=== PATIENT | female | born 2000 | race Caucasian/White ===

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

== ENCOUNTER 2019-02-21 20:19 | Inpatient (IN) | payer OTHER ==
[~2019-02-21] VITALS: Ht 160 cm; Wt 50.8 kg
[~2019-02-21 20:19] MED LIST changes: -AZIT500T2 PO; +AZIT500T5 PO
[2019-02-21] MEDS ORDERED: NS 1,000 ML IV ONE ×2 (21:00→23:00)
[2019-02-21 21:46] LABS: BASO % 0.3 % (0.0-1.0); EOS % 0.2 % (0.0-3.0); HEMATOCRIT 47.5 % (36.0-47.0); HEMOGLOBIN 14.8 g/dl (12.0-15.5); LYMPH # 1.1 10^3/uL (1.5-5.0); LYMPH % 8.5 % (24.0-44.0); MEAN CORPUSCULAR HEMOGLOBIN 25.6 pg (27.0-33.0); MEAN CORPUSCULAR HGB CONC 31.2 g/dl (32.0-36.5); MEAN CORPUSCULAR VOLUME 82.2 fl (80.0-96.0); MONO # 0.9 10^3/uL (0.0-0.8); MONO % 7.4 % (0.0-5.0); NEUTROPHILS # 10.4 10^3/uL (1.5-8.5); NEUTROPHILS % 83.2 % (36.0-66.0); PLATELET COUNT, AUTOMATED 424 10^3/uL (150-450); RED BLOOD COUNT 5.78 10^6/uL (4.00-5.40); WHITE BLOOD COUNT 12.5 10^3/uL (4.0-10.0)
[2019-02-21 22:08] LABS: VENOUS HCO3 6.9 MEQ/L (23.0-27.0); VENOUS O2 SATURATION 97.1 % (60.0-80.0); VENOUS PARTIAL PRESSURE CO2 18.7 mmHg (38.0-50.0); VENOUS PARTIAL PRESSURE O2 102.6 mmHg (30.0-50.0); VENOUS PH 7.187 UNITS (7.330-7.430); VENOUS STANDARD HCO3 10.9 MEQ/L; VENOUS TOTAL CO2 7.5 MEQ/L (24.0-28.0)
[2019-02-21 22:13] LABS: HCG, SERUM QUALITATIVE NEGATIVE (NEGATIVE)
[2019-02-21 22:25] LABS: ACETONE/KETONE > 46.00 MG/DL (<2.81); ALT/SGPT 15 U/L (12-78); BILIRUBIN,DIRECT < 0.1 MG/DL (0.0-0.2); BILIRUBIN,TOTAL 0.4 MG/DL (0.2-1.0); BLOOD UREA NITROGEN 12 MG/DL (7-18); CALCIUM LEVEL 8.9 MG/DL (8.5-10.1); CARBON DIOXIDE LEVEL 11 MEQ/L (21-32); CHLORIDE LEVEL 99 MEQ/L (98-107); CK-MB VALUE MASS < 1.0 NG/ML (<3.6); CPK CREATINE PHOSPHOKINASE 34 U/L (26-192); CREATININE FOR GFR 0.82 MG/DL (0.55-1.30); ETHYL ALCOHOL (ETHANOL) < 0.003 % (0.000-0.010); GLUCOSE, FASTING 485 MG/DL (70-100); LIPASE 53 U/L (73-393); MB/CK RELATIVE INDEX 2.94 (< OR =4); OSMOLALITY SERUM 309 MOSM/KG (275-295); SODIUM LEVEL 132 MEQ/L (136-145); TOTAL PROTEIN 7.4 GM/DL (6.4-8.2); TROPONIN I < 0.02 NG/ML (< 0.10)
[2019-02-21 22:31] LABS: AMPHETAMINES LEVEL URINE NEGATIVE (NEGATIVE); BARBITURATES URINE NEGATIVE (NEGATIVE); BENZODIAZEPINES URINE NEGATIVE (NEGATIVE); CANNABINOIDS URINE NEGATIVE (NEGATIVE); COCAINE METABOLITE URINE NEGATIVE (NEGATIVE); METHADONE URINE NEGATIVE (NEGATIVE); OPIATES URINE NEGATIVE (NEGATIVE); PHENCYCLIDINE URINE NEGATIVE (NEGATIVE)
[2019-02-21] MEDS ORDERED: cefTRIAXone SOD 1 GM in D5W MINI-BAG PLUS 50 ML IV ONE (23:00)
[2019-02-21] MEDS ORDERED: HumuLIN R (REGULAR) INSULIN (NovoLIN R) **100U/ML** PER UNIT IV ONE (23:00)
[2019-02-21] MEDS ORDERED: INSULIN HUMAN REGULAR 100 UNITS in NS 99 ML IV SCH (23:30)
[2019-02-21] MEDS ORDERED: L-NO1TBD4 PO (23:47)
--- NOTE | 2019-02-22 01:09 | ECGEPIP ---
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
[2019-02-22 01:35] LABS: VENOUS BASE EXCESS -15.7 (-2.0-2.0); VENOUS O2 SATURATION 60.9 % (60.0-80.0); VENOUS PARTIAL PRESSURE CO2 29.5 mmHg (38.0-50.0); VENOUS PARTIAL PRESSURE O2 32.4 mmHg (30.0-50.0); VENOUS STANDARD HCO3 12.2 MEQ/L; VENOUS TOTAL CO2 11.9 MEQ/L (24.0-28.0)
[2019-02-22] MEDS ORDERED: GLUCAGON FOR INJ 1 MG VIAL (J1610) SC PRN ×2 (02:00→16:15)
[2019-02-22] MEDS ORDERED: POTASSIUM CHLORIDE INJ 40 MEQ in NS 0.45% 1,000 ML IV SCH (02:00)
[2019-02-22] MEDS ORDERED: GLUCOSE 4 GM CHEW TABLET PO PRN ×2 (02:00→16:15)
[2019-02-22] MEDS ORDERED: DEXTROSE 50% 50 ML SYRINGE IV PRN ×2 (02:00→16:15)
[2019-02-22 02:03] LABS: OSMOLALITY SERUM 303 MOSM/KG (275-295)
[2019-02-22 02:04] LABS: BLOOD UREA NITROGEN 9 MG/DL (7-18); CALCIUM LEVEL 8.1 MG/DL (8.5-10.1); CARBON DIOXIDE LEVEL 15 MEQ/L (21-32); CHLORIDE LEVEL 109 MEQ/L (98-107); CREATININE FOR GFR 0.85 MG/DL (0.55-1.30); GLUCOSE, FASTING 276 MG/DL (70-100); POTASSIUM SERUM 3.2 MEQ/L (3.5-5.1); SODIUM LEVEL 140 MEQ/L (136-145)
[2019-02-22] MEDS: D5W/0.45% SODIUM CHLORIDE 1,000 ML IV SCH ×4 (04:13→13:58)
[2019-02-22 06:39] LABS: BASO % 0.3 % (0.0-1.0); EOS % 0.3 % (0.0-3.0); HEMATOCRIT 40.6 % (36.0-47.0); HEMOGLOBIN 12.9 g/dl (12.0-15.5); LYMPH # 1.2 10^3/uL (1.5-5.0); LYMPH % 10.2 % (24.0-44.0); MEAN CORPUSCULAR HEMOGLOBIN 25.9 pg (27.0-33.0); MEAN CORPUSCULAR HGB CONC 31.8 g/dl (32.0-36.5); MEAN CORPUSCULAR VOLUME 81.5 fl (80.0-96.0); MONO # 1.7 10^3/uL (0.0-0.8); MONO % 14.7 % (0.0-5.0); NEUTROPHILS # 8.6 10^3/uL (1.5-8.5); NEUTROPHILS % 73.9 % (36.0-66.0); PLATELET COUNT, AUTOMATED 373 10^3/uL (150-450); RED BLOOD COUNT 4.98 10^6/uL (4.00-5.40); WHITE BLOOD COUNT 11.6 10^3/uL (4.0-10.0)
[2019-02-22 06:39] LABS: VENOUS BASE EXCESS -10.2 (-2.0-2.0); VENOUS HCO3 15.9 MEQ/L (23.0-27.0); VENOUS O2 SATURATION 82.4 % (60.0-80.0); VENOUS PARTIAL PRESSURE CO2 35.7 mmHg (38.0-50.0); VENOUS PARTIAL PRESSURE O2 46.8 mmHg (30.0-50.0); VENOUS PH 7.266 UNITS (7.330-7.430); VENOUS STANDARD HCO3 16.2 MEQ/L
[2019-02-22 06:58] LABS: OSMOLALITY SERUM 289 MOSM/KG (275-295)
[2019-02-22 07:00] LABS: BLOOD UREA NITROGEN 7 MG/DL (7-18); CALCIUM LEVEL 8.1 MG/DL (8.5-10.1); CARBON DIOXIDE LEVEL 17 MEQ/L (21-32); CHLORIDE LEVEL 108 MEQ/L (98-107); CREATININE FOR GFR 0.67 MG/DL (0.55-1.30); GLUCOSE, FASTING 204 MG/DL (70-100); MAGNESIUM LEVEL 1.5 MG/DL (1.8-2.4); POTASSIUM SERUM 3.1 MEQ/L (3.5-5.1); SODIUM LEVEL 138 MEQ/L (136-145)
--- NOTE | 2019-02-22 07:18 | HPE ---
DATE OF ADMISSION: 02/21/2019 CHIEF COMPLAINT: Excessive sleeping, frequent urination, elevated blood sugar. This is a 19-year-old female with known insulin dependent diabetes who was at home. Her mother noticed she was having excessive sleeping, frequent urination. Her blood sugar was elevated. Per the mother she has had several admissions for diabetic ketoacidosis (DKA). She recognized the symptoms and brought the patient to the emergency room. Upon arrival, her temperature was 97.5, pulse was 107, blood pressure was 124/88, respirations were 16, oxygen saturation was 99% on room air. LABORATORY STUDIES: Fingerstick blood sugar was 369 at 2028 hours, 492 at 2141 hours. Sodium was 132, potassium 4.0, chloride 99, CO2 was 11, anion gap was elevated at 22, BUN was 12, creatinine was 0.82, blood sugar was 485 venous, osmolality was 309. White count was slightly elevated at 12.5, hemoglobin and hematocrit were 14.8 and 47.5, platelets were 422. Urine for toxicology was negative. The hydroxybutyrate was greater than 46. Venous blood gas (VBG) was done. Bicarb was 10.9, pH was 7.187. Urine was cloudy, 3+ glucose, 3+ protein, 1+ blood, 2+ ketones, white cells were too numerous to count. Chest x-ray was done. Per the ER physician there was no acute disease. IV fluids were started of normal saline. She was given 5 units of regular insulin and started on a drip. Assessment was done and the patient will be admitted for DKA, IV fluids, potassium replacement, insulin drip, to the ICU unit to the service of Dr. Cedeno. The patient was easy to arouse, oriented to person and place. ALLERGIES: Pistachios. PRIMARY CARE PROVIDER: Dr. Eli Escobar She lives with her mother. She does not drink alcohol. She occasionally smokes marijuana. Denies any recent travel or sick contacts. PAST MEDICAL HISTORY: Insulin-dependent diabetes type 1. Hypertension. Chronic kidney disease. Depression. History of anemia. PAST SURGICAL HISTORY: Appendectomy. FAMILY HISTORY: The patient states her mother and father have no medical problems. Prior records indicated heart disease and diabetes. HOME MEDICATIONS: - lisinopril 10 mg by mouth daily - Tresiba 100 units/1 mL insulin pen 30 units subcu daily - control one tablet daily - Humalog subcu before meals per sliding scale REVIEW OF SYSTEMS: HEENT: No complaint of headache. No blurred or double vision. She is sedate. She has had chills, no fever. No tinnitus. No hoarseness. No difficulty swallowing. No lightheadedness, no vertigo. BREASTS: No masses. CARDIOVASCULAR: No complaints of chest pain, shortness of breath, palpitations or edema. RESPIRATORY: No chronic cough. No sputum production. No hemoptysis. No orthopnea. No wheeze. GASTROINTESTINAL (GI): She has been nauseated. States she has not eaten for two days. No diarrhea. No hematochezia. No melena. No complaints of abdominal pain. GENITOURINARY (): Has had frequency. No hematuria. MUSCULOSKELETAL: No joint redness or swelling. ENDOCRINE: Insulin dependent diabetes type 1 and DKA. HEMATOLOGIC: No history of anemia. NEUROLOGIC: No loss of seizures. PSYCHOLOGIC: History of depression. No current suicidal ideation. PHYSICAL EXAMINATION: 19-year-old cooperative female. Height 63 inches, weight 52.27 kg, body mass index (BMI) 20.4, blood pressure 108/69, pulse 108, respirations 16, oxygen saturation 98% on room air. The patient is sleeping, arouses easily, oriented to person, place and time. Pupils equal and reactive to light. Extraocular muscles intact. Cornea and sclerae are clear. Conjunctivae are normal. No facial asymmetry. Pharynx, tongue and gums are pink and moist. Tongue is midline. Neck is supple without lymphadenopathy. No thyromegaly. No goiter. Chest clear to auscultation without wheeze or retraction. Heart is regular. Abdomen benign. Bowel sounds are positive. /rectal not done. Extremities full range of motion. No cyanosis, clubbing or edema. A small area on the left forearm tattoo, slightly reddened, no drainage. Peripheral pulses are equal and palpable bilaterally. Skin is warm and dry. IMPRESSION/PLAN: 1. Diabetic ketoacidosis (DKA). Admit to the ICU. Insulin drip, fingerstick blood sugars every hour. BMP every 4 hours. Phosphorous and VBG every 4 hours. IV fluids 250 mL an hour. Nothing by mouth except for medications. Dietary consult for nutrition. Half normal saline with KCL 40 mEq at 250 mL/hour. Hourly blood sugars. 2. Leukocytosis possibly secondary to urinary tract infection (UTI). Urine culture and sensitivity sent. Rocephin 1 gram started. 3. Small area infected tattoo, no redness or drainage. Monitor. IV antibiotics have been started. 4. Gastrointestinal (GI) prophylaxis. Will start Protonix. 5. Deep vein thrombosis (DVT) prophylaxis with Lovenox.
--- NOTE | 2019-02-22 08:29 | REP ---
Portable chest x-ray: Single view. History: Diabetic ketoacidosis. Comparison chest x-ray: December 15, 2018. Findings: EKG monitoring electrodes overlie the chest. The lungs are well inflated and clear. Pleural angles are sharp. Heart size is normal. Nipple jewelry is noted incidentally. Pulmonary vasculature is not increased. Impression: No acute disease. Electronically Signed by Gene Shabazz MD 02/22/2019 08:21 A
[2019-02-22] MEDS ORDERED: INSULIN IV RATE CHANGE DOCUMENTATION ML/HR XX SCH (08:30)
[2019-02-22 08:50] LABS: VENOUS BASE EXCESS -15.2 (-2.0-2.0); VENOUS HCO3 11.1 MEQ/L (23.0-27.0); VENOUS O2 SATURATION 76.1 % (60.0-80.0); VENOUS PARTIAL PRESSURE CO2 28.5 mmHg (38.0-50.0); VENOUS PARTIAL PRESSURE O2 42.6 mmHg (30.0-50.0); VENOUS PH 7.208 UNITS (7.330-7.430); VENOUS STANDARD HCO3 12.8 MEQ/L
[2019-02-22] MEDS ORDERED: POTASSIUM CHLORIDE 10 MEQ SR TABLET PO ONE ×2 (09:00→10:30)
[2019-02-22] MEDS: LEVEMIR (INSULIN DETEMIR) 1 UNITS/0.01ML SC SCH (09:10)
[2019-02-22] MEDS: PANTOPRAZOLE 40MG INJ (PROTONIX) (C9113) IV SCH (09:11)
[2019-02-22 09:18] LABS: BLOOD UREA NITROGEN 7 MG/DL (7-18); CALCIUM LEVEL 8.8 MG/DL (8.5-10.1); CARBON DIOXIDE LEVEL 13 MEQ/L (21-32); CHLORIDE LEVEL 104 MEQ/L (98-107); GLUCOSE, FASTING 362 MG/DL (70-100); PHOSPHORUS LEVEL 2.1 MG/DL (2.5-4.9); POTASSIUM SERUM 3.2 MEQ/L (3.5-5.1); SODIUM LEVEL 135 MEQ/L (136-145)
[2019-02-22] MEDS ORDERED: INSULIN HUMAN REGULAR 100 UNITS in NS 99 ML IV SCH ×5 (09:35)
[2019-02-22] MEDS: INSULIN HUMAN REGULAR 100 UNITS in NS 99 ML IV SCH ×2 (10:08→16:40)
[2019-02-22] MEDS: ENOXAPARIN 40 MG/0.4 ML SYRINGE (J1650) SC SCH (10:10)
[2019-02-22] MEDS ORDERED: MAG SULF 1GM/100ML (MAG RUN) 1 GM in IV 1 EA IV ONE (10:30)
[2019-02-22 11:46] LABS: OSMOLALITY SERUM 297 MOSM/KG (275-295)
[2019-02-22 12:44] LABS: VENOUS BASE EXCESS -11.3 (-2.0-2.0); VENOUS HCO3 13.1 MEQ/L (23.0-27.0); VENOUS PARTIAL PRESSURE O2 105.2 mmHg (30.0-50.0); VENOUS PH 7.319 UNITS (7.330-7.430); VENOUS STANDARD HCO3 15.7 MEQ/L; VENOUS TOTAL CO2 13.9 MEQ/L (24.0-28.0)
--- NOTE | 2019-02-22 12:44 | IPNPDOC ---
Text Note Date of Service The patient was seen on 02/22/19. NOTE Subjective: -No pain at this time but just feels poorly Interim events: -Declined IV K because it thorpe -Overnight had insulin gtt stopped with bridging with SC insulin and had 2- 3hours of no coverage, so gap re-opened and therefore now back on insulin gtt and given long acting insulin Objective: General: sleeping in a dark room, wakes on voice, AOx3, conversant HEENT: NCAT, PERRLA, EOMI, MMM, anicteric, no injection Neck: no JVD, adenopathy or thyromegaly Pulm: CTAB Cardiac: RRR, no mrg Abd: Hyperactive sounds, soft, NTND Ext: WWP, no LE edema Neuro: Cranial nerves 2-12 intact, full range of motion in all 4 extremities Psych: AOx3, appropriate affect Assessment: 19 yo woman who is admitted for DKA with ongoing UTI/pyelonephritis. 1. Diabetic ketoacidosis (DKA). -continue insulin gtt at 0.1u/kg/hr until gap closes -s/p 30u levemir this AM, and to continue daily -Q1H FSBG -continue D51/2NS at 125cc/hr at this time -Q4H BMPs with PO K repletion --> given 80 this AM (60 once, 20 once) -As gap closes and FSBG <200 will start FSBG AC/HS and SSI -NPO until gap closes and FSBG <200, then can start consistent carb diet 2. UTI: Flank pain c/f pyelonephritis with Leukocytosis, +UA -follow up urine culture -continue empiric ceftriaxone at this time C/f Small area infected tattoo: did not see any redness or drainage. -Monitor. -on IV ceftriaxone already 3. Gastrointestinal (GI) prophylaxis. continue protonix. 5. Deep vein thrombosis (DVT) prophylaxis: continue Lovenox. VS,Fishbone, I+O VS, Fishbone, I+O Laboratory Tests 02/21/19 21:36 02/22/19 01:22 02/22/19 06:14 02/22/19 08:42 Vital Signs Date Time Temp Pulse Resp B/P (MAP) Pulse Ox O2 Delivery O2 Flow Rate FiO2 02/22/19 09:30 104 16 111/68 (82) 99 Room Air 02/22/19 04:15 97.7 I&O- Last 24 Hours up to 6 AM 02/22/19 06:00 Intake Total 2297 ml Balance 2297 ml KATIUSKA PHILLIP MD Feb 22, 2019 12:44
[2019-02-22 13:27] LABS: BLOOD UREA NITROGEN 5 MG/DL (7-18); CARBON DIOXIDE LEVEL 15 MEQ/L (21-32); CHLORIDE LEVEL 108 MEQ/L (98-107); CREATININE FOR GFR 0.86 MG/DL (0.55-1.30); GLUCOSE, FASTING 374 MG/DL (70-100); PHOSPHORUS LEVEL 0.8 MG/DL (2.5-4.9); POTASSIUM SERUM 2.9 MEQ/L (3.5-5.1); SODIUM LEVEL 136 MEQ/L (136-145)
[2019-02-22 15:30] VITALS: BP 125/73
[2019-02-22] MEDS ORDERED: NEUTRA-PHOS 1.5 GM PACKET PO ONE (16:00)
[2019-02-22 16:24] LABS: VENOUS BASE EXCESS -16.4 (-2.0-2.0); VENOUS HCO3 9.3 MEQ/L (23.0-27.0); VENOUS O2 SATURATION 98.6 % (60.0-80.0); VENOUS PARTIAL PRESSURE CO2 22.2 mmHg (38.0-50.0); VENOUS PARTIAL PRESSURE O2 140.1 mmHg (30.0-50.0); VENOUS PH 7.242 UNITS (7.330-7.430); VENOUS STANDARD HCO3 11.8 MEQ/L
[2019-02-22 17:00] VITALS: BP 114/72
[2019-02-22] MEDS: HumaLOG INSULIN (NovoLOG) PER UNIT SC SCH (17:27)
[2019-02-22 18:09] LABS: BLOOD UREA NITROGEN 3 MG/DL (7-18); CALCIUM LEVEL 8.1 MG/DL (8.5-10.1); CARBON DIOXIDE LEVEL 20 MEQ/L (21-32); CHLORIDE LEVEL 107 MEQ/L (98-107); CREATININE FOR GFR 0.69 MG/DL (0.55-1.30); GLUCOSE, FASTING 167 MG/DL (70-100); PHOSPHORUS LEVEL 1.5 MG/DL (2.5-4.9); POTASSIUM SERUM 3.1 MEQ/L (3.5-5.1); SODIUM LEVEL 138 MEQ/L (136-145)
[2019-02-22 20:00] VITALS: BP 114/69
[2019-02-22] MEDS ORDERED: HumaLOG INSULIN (NovoLOG) PER UNIT SC SCH (21:00)
[2019-02-22] MEDS ORDERED: cefTRIAXone SOD 1 GM in D5W MINI-BAG PLUS 50 ML IV SCH (21:00)
[2019-02-23] VITALS: BP 118/72
[2019-02-23 04:00] VITALS: BP 112/71
[2019-02-23 05:39] LABS: BASO % 0.3 % (0.0-1.0); EOS % 0.3 % (0.0-3.0); HEMATOCRIT 39.5 % (36.0-47.0); HEMOGLOBIN 12.6 g/dl (12.0-15.5); LYMPH % 20.9 % (24.0-44.0); MEAN CORPUSCULAR HEMOGLOBIN 25.5 pg (27.0-33.0); MEAN CORPUSCULAR HGB CONC 31.9 g/dl (32.0-36.5); MONO # 1.5 10^3/uL (0.0-0.8); MONO % 15.3 % (0.0-5.0); NEUTROPHILS # 6.1 10^3/uL (1.5-8.5); NEUTROPHILS % 62.9 % (36.0-66.0); PLATELET COUNT, AUTOMATED 326 10^3/uL (150-450); RED BLOOD COUNT 4.94 10^6/uL (4.00-5.40); WHITE BLOOD COUNT 9.7 10^3/uL (4.0-10.0)
[2019-02-23 06:04] LABS: OSMOLALITY SERUM 296 MOSM/KG (275-295)
[2019-02-23 06:11] LABS: BLOOD UREA NITROGEN 6 MG/DL (7-18); CALCIUM LEVEL 8.3 MG/DL (8.5-10.1); CARBON DIOXIDE LEVEL 22 MEQ/L (21-32); CHLORIDE LEVEL 106 MEQ/L (98-107); CREATININE FOR GFR 0.56 MG/DL (0.55-1.30); GLUCOSE, FASTING 356 MG/DL (70-100); PHOSPHORUS LEVEL 1.7 MG/DL (2.5-4.9); POTASSIUM SERUM 3.1 MEQ/L (3.5-5.1); SODIUM LEVEL 137 MEQ/L (136-145)
[2019-02-23] MEDS ORDERED: POTASSIUM CHLORIDE 10 MEQ SR TABLET PO ONE ×2 (06:15→09:30)
[2019-02-23] MEDS: NEUTRA-PHOS 1.5 GM PACKET PO SCH ×2 (06:27→09:00)
[2019-02-23 08:00] VITALS: BP 109/72
[2019-02-23] MEDS: PANTOPRAZOLE 40MG INJ (PROTONIX) (C9113) IV SCH (08:04)
[2019-02-23] MEDS: ENOXAPARIN 40 MG/0.4 ML SYRINGE (J1650) SC SCH (08:04)
[2019-02-23] MEDS: LEVEMIR (INSULIN DETEMIR) 1 UNITS/0.01ML SC SCH (08:04)
[2019-02-23] MEDS: HumaLOG INSULIN (NovoLOG) PER UNIT SC SCH ×2 (08:04→11:22)
[2019-02-23] MEDS ORDERED: NEUTPW PO (09:34)
[2019-02-23] MEDS ORDERED: CEFD300CAP PO (09:34)
[2019-02-23] MEDS ORDERED: POTA1TAB14 PO (09:34)
[2019-02-23 12:13] LABS: BLOOD UREA NITROGEN 6 MG/DL (7-18); CALCIUM LEVEL 8.8 MG/DL (8.5-10.1); CARBON DIOXIDE LEVEL 25 MEQ/L (21-32); CHLORIDE LEVEL 105 MEQ/L (98-107); GLUCOSE, FASTING 350 MG/DL (70-100); POTASSIUM SERUM 4.3 MEQ/L (3.5-5.1); SODIUM LEVEL 139 MEQ/L (136-145)
--- NOTE | 2019-02-23 12:38 | DS.PDOC ---
Discharge Summary General Date of Admission Feb 21, 2019 at 23:10 Date of Discharge 02/23/2019 Discharge Summary PROCEDURES PERFORMED DURING STAY: [None]. ADMITTING DIAGNOSES / DISCHARGE DIAGNOSES: DKA [id number] UTI - likely 2/2 gram negative rods HTN GI prophylaxis DVT Prophylaxis COMPLICATIONS/CHIEF COMPLAINT: Elevated blood sugars and frequent urination HISTORY OF PRESENT ILLNESS / HOSPITAL COURSE: Patient is a 19-year-old female with a past medical history of insulin-dependent diabetes mellitus type 2 who presented to the emergency room with frequent urination and elevated blood sugars in the emergency room, patient was found to have DKA and was admitted to hospitalist service for further evaluation and treatment. Patient was also found to have a urinalysis that was consistent with a urinary tract infection. Patient was admitted intensive care unit and was started on insulin drip. She was eventually bridged to long acting basal coverage with Levemir. Patient urine culture showed greater than 100,000 gram-negative rods and patient was continued with cefdinir to provide equal and coverage to ceftriaxone that she has been improving on. . Currently, patient's anion gap has closed. Her bicarbonate has normalized and her glucose levels have become well-controlled. She's been advised to follow-up with her primary care provider and her time analysis clerk within the next 7 days. DISCHARGE MEDICATIONS: Please see below. ALLERGIES: Please see below. PHYSICAL EXAMINATION ON DISCHARGE: Vitals (See below) General: Lying in bed, no acute distress, comfortable, AAOx3 HEENT: NC, AT CVS: RRR, +S1S2 Lungs: Fair air entry b/l, no appreciable wheezing, rhonchi or rales Abdomen: Soft, ND, NT Extremities: - Edema, - Calf tenderness LABORATORY DATA: Please see below. IMAGING: CXR 02/21: No acute disease. ACTIVITY: [As tolerated]. DIET: Consistent carbohydrate DISCHARGE PLAN: Follow-up with primary care provider and time analysis clerk within 7 days Remain compliant with treatment plan and medications Return to the ER if you experience any problems DISPOSITION: Home DISCHARGE CONDITION: [Stable]. TIME SPENT ON DISCHARGE: 35 minutes Vital Signs/I&Os Vital Signs Date Time Temp Pulse Resp B/P (MAP) Pulse Ox O2 Delivery O2 Flow Rate FiO2 02/23/19 04:00 98.8 103 14 112/71 (85) 99 Room Air I&O- Last 24 Hours up to 6 AM 02/23/19 06:00 Intake Total 3265.9 ml Output Total 800 ml Balance 2465.9 ml Laboratory Data Labs 24H Laboratory Tests 2 02/22/19 12:35: Blood Gas Bicarbonate Standard 15.7, Venous Blood pH 7.319L, Venous Blood Partial Pressure CO2 26.0L, Venous Blood Partial Pressure O2 105.2H, Venous Blood Total Carbon Dioxide 13.9L, Venous Blood HCO3 13.1L, Venous Blood Oxygen Saturation 98.0H, Venous Blood Base Excess -11.3L, Anion Gap 13, Calcium Level 8.0L, Phosphorus Level 0.8#L 02/22/19 13:11: Bedside Glucose (Misc Panel) 310H 02/22/19 13:55: Bedside Glucose (Misc Panel) 241H 02/22/19 15:14: Bedside Glucose (Misc Panel) 208H 02/22/19 16:01: Bedside Glucose (Misc Panel) 157H 02/22/19 16:17: Blood Gas Bicarbonate Standard 11.8, Venous Blood pH 7.242L, Venous Blood Partial Pressure CO2 22.2L, Venous Blood Partial Pressure O2 140.1H, Venous Blood Total Carbon Dioxide 10.0L, Venous Blood HCO3 9.3L, Venous Blood Oxygen Saturation 98.6H, Venous Blood Base Excess -16.4L, Osmolality 340H 02/22/19 17:03: Bedside Glucose (Misc Panel) 150H 02/22/19 17:37: Anion Gap 11, Calcium Level 8.1L, Phosphorus Level 1.5#L 02/22/19 20:16: Bedside Glucose (Misc Panel) 407H 02/23/19 05:07: Immature Granulocyte % (Auto) 0.3, Neutrophils (%) (Auto) 62.9, Lymphocytes (%) (Auto) 20.9L, Monocytes (%) (Auto) 15.3H, Eosinophils (%) (Auto) 0.3, Basophils (%) (Auto) 0.3, Neutrophils # (Auto) 6.1, Lymphocytes # (Auto) 2.0, Monocytes # (Auto) 1.5H, Eosinophils # (Auto) 0.0, Basophils # (Auto) 0.0, Nucleated Red Blood Cells % (auto) 0.0, Anion Gap 9, Osmolality 296H, Calcium Level 8.3L, Phosphorus Level 1.7L, Magnesium Level 2.0 02/23/19 11:17: Bedside Glucose (Misc Panel) 371H 02/23/19 11:27: Anion Gap 9, Calcium Level 8.8 CBC/BMP Laboratory Tests 02/22/19 12:35 02/22/19 17:37 02/23/19 05:07 02/23/19 11:27 FSBS Laboratory Tests Test 02/22/19 13:11 02/22/19 13:55 02/22/19 15:14 02/22/19 16:01 Range/Units Bedside Glucose (Misc Panel) 310 241 208 157 70-105 MG/DL Test 02/22/19 17:03 02/22/19 20:16 02/23/19 11:17 Range/Units Bedside Glucose (Misc Panel) 150 407 371 70-105 MG/DL Microbiology Microbiology 02/21/19 Urine Culture, Received Pending 02/21/19 Blood Culture - Preliminary, Resulted No growth after 24 hours . All specim... 02/21/19 Blood Culture - Preliminary, Resulted No growth after 24 hours . All specim... Discharge Medications Scheduled Cefdinir (Cefdinir) 300 Mg Capsule, 300 MG PO BID Insulin Degludec (Tresiba Flextouch U-100) 100 Unit/1 Ml Insuln.pen, 30 UNIT SC DAILY, (Reported) Insulin Human Lispro (Humalog) 1 Units/0.01 Ml Inj, 1 DOSE SC AC, (Reported) TAKES ONE UNIT PER 8 GRAMS OF CARBS TO BE CONSUMED PLUS SLIDING SCALE Lisinopril (Lisinopril) 10 Mg Tab, 10 MG PO DAILY, (Reported) Potassium Chloride (Potassium Chloride) 20 Meq Tablet.er, 1 TAB PO DAILY Potassium Phos/Sodium Phos (Phos-Nak Packet) 1 Each Powd.pack, 1 PKT PO BID l-Norgest/E.estradiol-E.estrad (Simpesse 0.15-0.03-0.01 mg Tab) 1 Each Tbdspk.3m o, 1 TAB PO DAILY, (Reported) 1500 Scheduled PRN Glucagon,Human Recombinant (Glucagon Emergency Kit) 1 Mg Kit, 1 MG IM ASDIRECTED PRN for LOW BLOOD SUGAR, (Reported) Allergies Coded Allergies: Pistachio (Verified Allergy, Unknown, 12/02/18) HOSSEIN KUNZ MD Feb 23, 2019 12:38
== END 2019-02-23 14:53 | disposition home or self-care (01) | DRG 420 ==
LOC: M ED 20:19 → M ED INP 23:10 → M ICU 02-22 15:33 → M MS4PR 02-23 06:35
PROVIDERS: ADMIT Internal Medicine; ATTEND Internal Medicine
DX: E10.10 Type 1 diabetes mellitus with ketoacidosis without coma (principal); I12.9 Hypertensive chronic kidney disease with stage 1 through stage 4 chronic kidney disease, or unspecified chronic kidney disease; E10.22 Type 1 diabetes mellitus with diabetic chronic kidney disease; N18.9 Chronic kidney disease, unspecified; F32.9 Major depressive disorder, single episode, unspecified; Z79.4 Long term (current) use of insulin; Z79.899 Other long term (current) drug therapy; N39.0 Urinary tract infection, site not specified; Z91.018 Allergy to other foods

== ENCOUNTER 2019-04-15 22:18 | Inpatient (IN) | payer OTHER ==
[~2019-04-15] VITALS: Ht 160 cm; Wt 52.3 kg
[~2019-04-15 22:18] MED LIST changes: +CEFD300CAP PO; +L-NO1TBD4 PO; +NEUTPW PO; +POTA1TAB14 PO
[2019-04-15 23:24] LABS: BASO # 0.1 10^3/uL (0.0-0.2); BASO % 0.7 % (0.0-1.0); EOS # 0.1 10^3/uL (0.0-0.5); EOS % 0.9 % (0.0-3.0); HEMOGLOBIN 14.1 g/dl (12.0-15.5); LYMPH # 2.6 10^3/uL (1.5-5.0); LYMPH % 29.6 % (24.0-44.0); MEAN CORPUSCULAR HEMOGLOBIN 26.5 pg (27.0-33.0); MEAN CORPUSCULAR HGB CONC 31.3 g/dl (32.0-36.5); MEAN CORPUSCULAR VOLUME 84.6 fl (80.0-96.0); MONO # 0.7 10^3/uL (0.0-0.8); NEUTROPHILS # 5.3 10^3/uL (1.5-8.5); NEUTROPHILS % 60.5 % (36.0-66.0); PLATELET COUNT, AUTOMATED 330 10^3/uL (150-450); RED BLOOD COUNT 5.32 10^6/uL (4.00-5.40); WHITE BLOOD COUNT 8.8 10^3/uL (4.0-10.0)
[2019-04-15 23:42] LABS: VENOUS BASE EXCESS -12.1 (-2.0-2.0); VENOUS HCO3 14.3 MEQ/L (23.0-27.0); VENOUS O2 SATURATION 86.8 % (60.0-80.0); VENOUS PARTIAL PRESSURE CO2 34.2 mmHg (38.0-50.0); VENOUS PARTIAL PRESSURE O2 61.4 mmHg (30.0-50.0); VENOUS PH 7.238 UNITS (7.330-7.430); VENOUS TOTAL CO2 15.3 MEQ/L (24.0-28.0)
[2019-04-15 23:45] LABS: BLOOD UREA NITROGEN 8 MG/DL (7-18); CALCIUM LEVEL 9.1 MG/DL (8.5-10.1); CARBON DIOXIDE LEVEL 15 MEQ/L (21-32); CHLORIDE LEVEL 85 MEQ/L (98-107); CREATININE FOR GFR 1.18 MG/DL (0.55-1.30); GLUCOSE, FASTING 913 MG/DL (70-100); POTASSIUM SERUM 3.7 MEQ/L (3.5-5.1); SODIUM LEVEL 123 MEQ/L (136-145)
[2019-04-15] MEDS ORDERED: NS 1,000 ML IV ONE (23:45)
[2019-04-15 23:47] LABS: HCG, SERUM QUALITATIVE NEGATIVE (NEGATIVE)
[2019-04-15 23:58] LABS: ACETONE/KETONE 9.77 MG/DL (<2.81)
[2019-04-16] VITALS (7 sets, daily range): BP systolic 100–121; BP diastolic 56–89
[2019-04-16 00:27] LABS: OSMOLALITY SERUM 317 MOSM/KG (275-295)
[2019-04-16] MEDS ORDERED: INSULIN HUMAN REGULAR 100 UNITS in NS 99 ML IV SCH ×2 (00:45→01:15)
[2019-04-16] MEDS ORDERED: INSULIN IV RATE CHANGE DOCUMENTATION ML/HR XX SCH (00:45)
[2019-04-16] MEDS ORDERED: POTASSIUM CHLORIDE 10 MEQ SR TABLET PO ONE (00:45)
[2019-04-16] MEDS: HumuLIN R (REGULAR) INSULIN (NovoLIN R) **100U/ML** PER UNIT IV ONE ×2 (00:52→01:28)
[2019-04-16] MEDS ORDERED: NS 500 ML in IV 1 EA IV ONE (01:00)
--- NOTE | 2019-04-16 01:28 | HPEPDOC ---
[facility] Medical History & Physical Date of Admission Apr 16, 2019 Date of Service: Apr 16, 2019 Other Provider Eli Henley M.D. Attending Physician: JEAN HENNESSY MD History and Physical TIME OF SERVICE: 110AM CHIEF COMPLAINT: High sugar HISTORY OF PRESENT ILLNESS: This is a 19-year-old female who presents with complaints of having high sugars. She has been measuring her sugars over the last few days and has not been able to get them down and thinks she has ketones. Associated symptoms include feeling thirsty, urinating a lot, abdominal pain, feeling weak and tired. She denies having nausea, vomiting, diarrhea, chills, runny nose, cough, congestion, cuts on her skin or having a change in the color or smell of her urine. She had a fever on Friday and one of her friends had an upper respiratory tract infection. She admits to missing doses of insulin on Friday and last took insulin at 5 PM prior to coming to the ER on . REVIEW OF SYSTEMS: 12 point review of systems negative except as listed in HPI PAST MEDICAL/ SURGICAL HISTORY: Type 1 diabetes with history of DKA. Chronic hypertension. CKD of unclear stage Depression. History of anemia. Status post appendectomy SOCIAL HISTORY: She does not smoke. She does not drink. She is marijuana occasionally FAMILY HISTORY: CAD Diabetes ALLERGIES: Please see below. HOME MEDICATIONS: Please see below. PHYSICAL EXAMINATION: VITAL SIGNS: Please see below. GEN: well-nourished / well developed/ NAD INTEGUMENT: not flushed/ not jaundice / she has multiple tattoos on her lower arms HEENT: NCAT / lips acyanotic /mucus membranes moist and pink CVS: RRR/NMRG / no lower extremity edema LUNGS: lungs are clear to auscultation bilaterally on room air ABDOMEN: Contour (flat) / soft, She doesn't grimace with palpation NEURO: CN 2-12 are grossly intact / speech is not dysarthric PSYCH: alert and oriented to person place and time/ able to understand and follow all commands LABORATORY DATA: See below. IMAGING: Pending MICROBIOLOGY: Please see below. ASSESSMENT: is a 19-year-old female with a history of type 1 diabetes, CKD, & HTN who is admitted for management of DKA. PLAN: 1. DKA Diagnosis based on : gluc >250 + pH <7.30 + bicarbonate <18 + urine ketones + AG >12 + BHB Possible trigger noncompliance with insulin vs URI as one of her friends recently had the flu and she had a fever a few days ago UA findings are not consistent with UTI. The lactic acidosis saad due to DKA Plan: admit to ICU /NPO / Insulin drip per protocol/ 0.9% NS with KCl for now, when glucose reaches 200 will switch to to D5-0.45% to avoid hypogycemia / f/u chest x-ray, influenza & blood cx / f/u accuchecks Q1H, BMP Q4H, venous PH Q4H, osmol Q4H, Mag Q4H, phosp Q4H / f/u A1C / will bridge when serum glucose is <200 + the patient is able to eat, and two of the following are met: AG <12 and/or bicarbonate >15 and/or, pH >7.30, we will give long acting insulin and arsenio of insulin drip for 2 hours after / hold home anti-glycemic agents pending resolution of DKA / DM education & operational intelligence officer consult in the morning 2. Chronic HTN Plan: Lisinopril DVT PROPHYLAXIS: Lovenox DISPOSITION: home after more than 2 midnight's stay Vital Signs Vital Signs Date Time Temp Pulse Resp B/P (MAP) Pulse Ox O2 Delivery O2 Flow Rate FiO2 04/16/19 00:15 76 16 118/81 (93) 96 Room Air 04/15/19 22:18 97.6 Laboratory Data Labs 24H Laboratory Tests 2 04/15/19 23:03: Immature Granulocyte % (Auto) 0.3, Neutrophils (%) (Auto) 60.5, Lymphocytes (%) (Auto) 29.6, Monocytes (%) (Auto) 8.0H, Eosinophils (%) (Auto) 0.9, Basophils (%) (Auto) 0.7, Neutrophils # (Auto) 5.3, Lymphocytes # (Auto) 2.6, Monocytes # (Auto) 0.7, Eosinophils # (Auto) 0.1, Basophils # (Auto) 0.1, Nucleated Red Blood Cells % (auto) 0.0, Urine Color COLORLESS, Urine Appearance CLEAR, Urine pH 6.0, Urine Specific [place] 1.023, Urine Protein NEGATIVE, Urine Glucose (UA) 3+H, Urine Ketones 1+H, Urine Blood NEGATIVE, Urine Nitrite NEGATIVE, Urine Bilirubin NEGATIVE, Urine Urobilinogen 0.2, Urine Leukocyte Esterase NEGATIVE, Urine WBC (Auto) 1, Urine RBC (Auto) 1, Urine Hyaline Casts (Auto) 0, Urine Bacteria (Auto) NEGATIVE, Urine Squamous Epithelial Cells 0, Urine Sperm (Auto) , Blood Gas Bicarbonate Standard 15.0, Venous Blood pH 7.238L, Venous Blood Partial Pressure CO2 34.2L, Venous Blood Partial Pressure O2 61.4H, Venous Blood Total Carbon Dioxide 15.3L, Venous Blood HCO3 14.3L, Venous Blood Oxygen Saturat ion 86.8H, Venous Blood Base Excess -12.1L, Anion Gap 23H, Estimated Mean Plasma Glucose 384H, Hemoglobin A1c 15.0, Osmolality 317H, Lactic Acid Level 9.8*H, Calcium Level 9.1, Human Chorionic Gonadotropin, Qual NEGATIVE, B- Hydroxybutyrate 9.77H CBC/BMP Laboratory Tests 04/15/19 23:03 Home Medications Scheduled Insulin Degludec (Tresiba Flextouch U-100) 100 Unit/1 Ml Insuln.pen, 30 UNIT SC DAILY Insulin Human Lispro (Humalog) 1 Units/0.01 Ml Inj, 1 DOSE SC AC TAKES ONE UNIT PER 8 GRAMS OF CARBS TO BE CONSUMED PLUS SLIDING SCALE Lisinopril (Lisinopril) 10 Mg Tab, 10 MG PO DAILY l-Norgest/E.estradiol-E.estrad (Simpesse 0.15-0.03-0.01 mg Tab) 1 Each Tbdspk.3mo, 1 TAB PO DAILY 1500 Scheduled PRN Glucagon,Human Recombinant (Glucagon Emergency Kit) 1 Mg Kit, 1 MG IM ASDIRECTED PRN for LOW BLOOD SUGAR Allergies Coded Allergies: Pistachio (Verified Allergy, Unknown, 12/02/18) A-FIB/CHADSVASC A-FIB History Current/History of A-Fib/PAF?: No Current PO Anticoag Therapy: JEAN Lowe MD Apr 16, 2019 01:28
[2019-04-16] MEDS: INSULIN IV RATE CHANGE DOCUMENTATION ML/HR XX SCH ×7 (02:38→09:05)
[2019-04-16] MEDS ORDERED: POTASSIUM CHLORIDE INJ 30 MEQ in NS 1,000 ML IV SCH (02:45)
[2019-04-16 03:18] LABS: VENOUS BASE EXCESS -1.3 (-2.0-2.0); VENOUS HCO3 22.6 MEQ/L (23.0-27.0); VENOUS O2 SATURATION 99.3 % (60.0-80.0); VENOUS PARTIAL PRESSURE CO2 35.5 mmHg (38.0-50.0); VENOUS PARTIAL PRESSURE O2 207.1 mmHg (30.0-50.0); VENOUS PH 7.421 UNITS (7.330-7.430); VENOUS STANDARD HCO3 23.4 MEQ/L; VENOUS TOTAL CO2 23.7 MEQ/L (24.0-28.0)
[2019-04-16 03:43] LABS: OSMOLALITY SERUM 288 MOSM/KG (275-295)
[2019-04-16 03:53] LABS: BLOOD UREA NITROGEN 5 MG/DL (7-18); CALCIUM LEVEL 7.8 MG/DL (8.5-10.1); CARBON DIOXIDE LEVEL 24 MEQ/L (21-32); CHLORIDE LEVEL 105 MEQ/L (98-107); GLUCOSE, FASTING 231 MG/DL (70-100); MAGNESIUM LEVEL 1.6 MG/DL (1.8-2.4); PHOSPHORUS LEVEL 1.8 MG/DL (2.5-4.9); SODIUM LEVEL 139 MEQ/L (136-145)
[2019-04-16] MEDS ORDERED: D5W/0.45% SODIUM CHLORIDE 1,000 ML IV ONE (04:00)
[2019-04-16] MEDS ORDERED: MAG SULF 1GM/100ML (MAG RUN) 1 GM in IV 1 EA IV ONE (04:00)
[2019-04-16] MEDS: KCL 40MEQ IN D5/0.45NS 1000ML 1,000 ML IV SCH ×2 (04:23→08:29)
[2019-04-16] MEDS ORDERED: POTASSIUM PHOSPHATE INJ 18 MMOL in D5W 250 ML IV ONE (04:30)
[2019-04-16 07:08] LABS: VENOUS BASE EXCESS -7.7 (-2.0-2.0); VENOUS HCO3 18.7 MEQ/L (23.0-27.0); VENOUS O2 SATURATION 96.8 % (60.0-80.0); VENOUS PARTIAL PRESSURE O2 92.6 mmHg (30.0-50.0); VENOUS PH 7.276 UNITS (7.330-7.430); VENOUS STANDARD HCO3 18.2 MEQ/L; VENOUS TOTAL CO2 19.9 MEQ/L (24.0-28.0)
[2019-04-16 07:20] LABS: HEMATOCRIT 37.1 % (36.0-47.0); MEAN CORPUSCULAR HEMOGLOBIN 25.7 pg (27.0-33.0); MEAN CORPUSCULAR HGB CONC 32.6 g/dl (32.0-36.5); MEAN CORPUSCULAR VOLUME 78.9 fl (80.0-96.0); PLATELET COUNT, AUTOMATED 303 10^3/uL (150-450); WHITE BLOOD COUNT 8.2 10^3/uL (4.0-10.0)
[2019-04-16 07:23] LABS: HEMOGLOBIN 12.1 g/dl (12.0-15.5)
--- NOTE | 2019-04-16 07:27 | REP ---
Portable chest, 01:18 a.m., single AP view with the patient sitting: Comparison is the portable chest of 02/21/2019. The lung franklin are clear. The cardiac size is normal. The symone, mediastinum, and skeletal structures are unremarkable. Impression: Negative portable chest. There is no interval change. Electronically Signed by Major Arrieta MD 04/16/2019 07:17 A
[2019-04-16 07:33] LABS: OSMOLALITY SERUM 289 MOSM/KG (275-295)
[2019-04-16] MEDS ORDERED: DEXTROSE 50% 50 ML SYRINGE IV PRN (08:30)
[2019-04-16] MEDS ORDERED: GLUCAGON FOR INJ 1 MG VIAL (J1610) SC PRN (08:30)
[2019-04-16] MEDS ORDERED: GLUCOSE 4 GM CHEW TABLET PO PRN (08:30)
[2019-04-16] MEDS ORDERED: lisinopriL 10 MG TAB PO SCH (09:00)
[2019-04-16] MEDS ORDERED: LEVEMIR (INSULIN DETEMIR) 1 UNITS/0.01ML SC ONE (09:00)
[2019-04-16] MEDS ORDERED: ENOXAPARIN 40 MG/0.4 ML SYRINGE (J1650) SC SCH (09:00)
[2019-04-16 10:54] LABS: BLOOD UREA NITROGEN 4 MG/DL (7-18); CALCIUM LEVEL 7.3 MG/DL (8.5-10.1); CARBON DIOXIDE LEVEL 26 MEQ/L (21-32); CHLORIDE LEVEL 102 MEQ/L (98-107); CREATININE FOR GFR 0.37 MG/DL (0.55-1.30); GLUCOSE, FASTING 323 MG/DL (70-100); PHOSPHORUS LEVEL 12.6 MG/DL (2.5-4.9); SODIUM LEVEL 134 MEQ/L (136-145)
[2019-04-16 11:13] LABS: VENOUS BASE EXCESS -4.4 (-2.0-2.0); VENOUS HCO3 19.2 MEQ/L (23.0-27.0); VENOUS O2 SATURATION 96.1 % (60.0-80.0); VENOUS PARTIAL PRESSURE CO2 31.4 mmHg (38.0-50.0); VENOUS PARTIAL PRESSURE O2 81.2 mmHg (30.0-50.0); VENOUS PH 7.405 UNITS (7.330-7.430); VENOUS STANDARD HCO3 20.8 MEQ/L; VENOUS TOTAL CO2 20.2 MEQ/L (24.0-28.0)
[2019-04-16 11:49] LABS: MAGNESIUM LEVEL 1.8 MG/DL (1.8-2.4)
[2019-04-16] MEDS ORDERED: HumaLOG INSULIN (NovoLOG) PER UNIT SC SCH ×2 (12:00→21:00)
[2019-04-16 12:34] LABS: GLUCOSE, FASTING 337 MG/DL (70-100)
[2019-04-16 12:35] LABS: BLOOD UREA NITROGEN 2 MG/DL (7-18); CALCIUM LEVEL 7.7 MG/DL (8.5-10.1); CARBON DIOXIDE LEVEL 25 MEQ/L (21-32); CHLORIDE LEVEL 104 MEQ/L (98-107); CREATININE FOR GFR 0.54 MG/DL (0.55-1.30); PHOSPHORUS LEVEL 2.8 MG/DL (2.5-4.9); POTASSIUM SERUM 4.2 MEQ/L (3.5-5.1); SODIUM LEVEL 137 MEQ/L (136-145)
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
== END 2019-04-16 13:35 | disposition home or self-care (01) | DRG 420 ==
LOC: M ED 22:18 → M ED INP 04-16 00:45 → ENRESERVTM 04-16 01:07 → ENRESERVDT 04-16 01:07 → M ICU 04-16 02:18
PROVIDERS: ADMIT Internal Medicine; ATTEND Internal Medicine
DX: E10.10 Type 1 diabetes mellitus with ketoacidosis without coma (principal); I12.9 Hypertensive chronic kidney disease with stage 1 through stage 4 chronic kidney disease, or unspecified chronic kidney disease; E10.22 Type 1 diabetes mellitus with diabetic chronic kidney disease; N18.9 Chronic kidney disease, unspecified; F32.9 Major depressive disorder, single episode, unspecified; Z90.49 Acquired absence of other specified parts of digestive tract; Z79.4 Long term (current) use of insulin; Z91.018 Allergy to other foods; Z79.899 Other long term (current) drug therapy; Z91.14 Patient's other noncompliance with medication regimen

== ENCOUNTER 2019-04-25 20:25 | Emergency (ER) | payer OTHER ==
[~2019-04-25] VITALS: Ht 157.5 cm; Wt 52.3 kg
[2019-04-25] MEDS ORDERED: ACETAMINOPHEN 325 MG TAB PO ONE (20:45)
[2019-04-25 20:57] LABS: VENOUS BASE EXCESS 2.7 (-2.0-2.0); VENOUS HCO3 26.9 MEQ/L (23.0-27.0); VENOUS O2 SATURATION 84.9 % (60.0-80.0); VENOUS PARTIAL PRESSURE CO2 39.9 mmHg (38.0-50.0); VENOUS PARTIAL PRESSURE O2 46.7 mmHg (30.0-50.0); VENOUS PH 7.446 UNITS (7.330-7.430); VENOUS STANDARD HCO3 26.5 MEQ/L; VENOUS TOTAL CO2 28.1 MEQ/L (24.0-28.0)
[2019-04-25 20:59] LABS: BASO % 0.3 % (0.0-1.0); HEMATOCRIT 40.6 % (36.0-47.0); LYMPH # 1.2 10^3/uL (1.5-5.0); LYMPH % 12.6 % (24.0-44.0); MEAN CORPUSCULAR VOLUME 81.2 fl (80.0-96.0); MONO # 0.7 10^3/uL (0.0-0.8); MONO % 7.9 % (0.0-5.0); NEUTROPHILS # 7.3 10^3/uL (1.5-8.5); NEUTROPHILS % 78.8 % (36.0-66.0); PLATELET COUNT, AUTOMATED 447 10^3/uL (150-450); WHITE BLOOD COUNT 9.3 10^3/uL (4.0-10.0)
[2019-04-25] MEDS ORDERED: NS 1,000 ML IV ONE (21:00)
[2019-04-25 21:33] LABS: HEMOGLOBIN A1c 14.9 %
[2019-04-25 21:41] LABS: INFLUENZA A AMPLIFICATION NEGATIVE (NEGATIVE); INFLUENZA B AMPLIFICATION NEGATIVE (NEGATIVE)
[2019-04-25 22:03] LABS: ALBUMIN 2.9 GM/DL (3.2-5.2); ALT/SGPT 60 U/L (12-78); BILIRUBIN,TOTAL 0.2 MG/DL (0.2-1.0); BLOOD UREA NITROGEN 7 MG/DL (7-18); CALCIUM LEVEL 8.5 MG/DL (8.5-10.1); CARBON DIOXIDE LEVEL 25 MEQ/L (21-32); CHLORIDE LEVEL 101 MEQ/L (98-107); CREATININE FOR GFR 0.68 MG/DL (0.55-1.30); GLUCOSE, FASTING 266 MG/DL (70-100); SODIUM LEVEL 136 MEQ/L (136-145); TOTAL PROTEIN 7.1 GM/DL (6.4-8.2)
--- NOTE | 2019-04-25 22:37 | REPVR ---
PROCEDURE INFORMATION: Exam: US Retroperitoneal Limited, Kidneys Exam date and time: 04/25/19 (9:56pm) Age: 19 years old Clinical indication: Bilateral flank pain TECHNIQUE: Imaging protocol: Real-time ultrasound of the retroperitoneum with image documentation. Examination was focused on the kidneys. COMPARISON: US LIVER of 12/02/18 FINDINGS: RIGHT KIDNEY --- The right kidney measures 12.5 cm in length. No hydronephrosis nor mass is noted. No upper tract stones are identified. LEFT KIDNEY --- The left kidney measures 12.3 cm in length. No hydronephrosis nor mass is noted. No upper tract stones are identified. URINARY BLADDER --- No significant pathology. No stones nor mass. Pre-void urinary bladder volume = 318 ml. Bilateral ureteral jets are visualized. IMPRESSION: No acute pathology. The kidneys are each normal in size. No hydronephrosis. Electronically signed by: Vanessa Guy On 04/25/2019 22:37:36 PM
[2019-04-26 00:31] VITALS: BP 121/80
--- NOTE | 2019-04-26 08:12 | REP ---
Clinical: Cough and shortness of breath . Comparison: 02/21/2019, 04/16/2019 . Technique: PA and lateral. Findings: The mediastinum and cardiac silhouette are normal. The lung franklin are clear and without acute consolidation, effusion, or pneumothorax. The skeletal structures are intact and normal. Impression: 1. No acute cardiopulmonary process. Electronically Signed by Igor Zhang MD 04/26/2019 08:03 A
== END 2019-04-26 00:32 | disposition home or self-care (01) ==
LOC: M ED 20:25
DX: B34.9 Viral infection, unspecified (principal); E10.9 Type 1 diabetes mellitus without complications; I10 Essential (primary) hypertension; K21.9 Gastro-esophageal reflux disease without esophagitis; F41.9 Anxiety disorder, unspecified; Z91.018 Allergy to other foods; Z79.899 Other long term (current) drug therapy; Z79.4 Long term (current) use of insulin

== ENCOUNTER 2019-06-28 16:59 | Observation (INO) | payer OTHER ==
[~2019-06-28] VITALS: Ht 157.5 cm; Wt 60.0 kg
[2019-06-28] MEDS ORDERED: NS 1,000 ML IV ONE (17:45)
[2019-06-28 18:07] LABS: VENOUS BASE EXCESS -1.1 (-2.0-2.0); VENOUS HCO3 25.7 MEQ/L (23.0-27.0); VENOUS O2 SATURATION 48.8 % (60.0-80.0); VENOUS PARTIAL PRESSURE CO2 51.7 mmHg (38.0-50.0); VENOUS PARTIAL PRESSURE O2 29.7 mmHg (30.0-50.0); VENOUS PH 7.314 UNITS (7.330-7.430); VENOUS STANDARD HCO3 22.5 MEQ/L; VENOUS TOTAL CO2 27.3 MEQ/L (24.0-28.0)
[2019-06-28 18:09] LABS: BASO % 0.2 % (0.0-1.0); EOS % 0.1 % (0.0-3.0); HEMATOCRIT 39.4 % (36.0-47.0); HEMOGLOBIN 12.3 g/dl (12.0-15.5); LYMPH # 1.2 10^3/uL (1.5-5.0); LYMPH % 6.2 % (24.0-44.0); MEAN CORPUSCULAR HGB CONC 31.2 g/dl (32.0-36.5); MEAN CORPUSCULAR VOLUME 80.1 fl (80.0-96.0); MONO # 0.9 10^3/uL (0.0-0.8); MONO % 4.8 % (0.0-5.0); NEUTROPHILS # 17.2 10^3/uL (1.5-8.5); NEUTROPHILS % 88.2 % (36.0-66.0); PLATELET COUNT, AUTOMATED 343 10^3/uL (150-450); RED BLOOD COUNT 4.92 10^6/uL (4.00-5.40); WHITE BLOOD COUNT 19.4 10^3/uL (4.0-10.0)
[2019-06-28 18:30] LABS: HEMOGLOBIN A1c 12.8 %
[2019-06-28 18:45] LABS: ACETONE/KETONE 1.47 MG/DL (<2.81); ALBUMIN 3.3 GM/DL (3.2-5.2); BILIRUBIN,DIRECT 0.1 MG/DL (0.0-0.2); BILIRUBIN,TOTAL 0.6 MG/DL (0.2-1.0); MAGNESIUM LEVEL 1.7 MG/DL (1.8-2.4); PHOSPHORUS LEVEL 4.7 MG/DL (2.5-4.9); TOTAL PROTEIN 7.5 GM/DL (6.4-8.2)
[2019-06-28] MEDS ORDERED: ONDANSETRON 4MG/2ML VIAL IV ONE (20:30)
[2019-06-28] MEDS ORDERED: cefTRIAXone SOD 2 GM in D5W MINI-BAG PLUS 50 ML IV ONE (20:30)
[2019-06-28] MEDS ORDERED: ACETAMINOPHEN 325 MG TAB PO ONE (20:30)
[2019-06-28] MEDS ORDERED: GLUCAGON INJ 1MG VIAL SC PRN (20:45)
[2019-06-28] MEDS ORDERED: DEXTROSE 50% 50 ML SYRINGE IV PRN (20:45)
[2019-06-28] MEDS ORDERED: NS 2,000 ML IV ONE (20:45)
[2019-06-28] MEDS ORDERED: NS IV ONE (20:45)
[2019-06-28] MEDS ORDERED: GLUCOSE 4GM CHEW TABLET PO PRN (20:45)
[2019-06-28] MEDS ORDERED: ATOR1TAB19 PO (20:54)
[2019-06-28] MEDS ORDERED: MORPHINE 4 MG/ML 1ML VIAL/SYRINGE (J2270) IV PRN (21:15)
[2019-06-28] MEDS ORDERED: KETOROLAC 30 MG/ML 1ML VIAL IV ONE (21:15)
[2019-06-28] MEDS ORDERED: ACETAMINOPHEN TAB 650MG DOSE (2X325MG) PO PRN (21:15)
[2019-06-28] MEDS ORDERED: MORPHINE 2 MG/ML 1ML VIAL (J2270) IV ONE (21:15)
[2019-06-28] MEDS ORDERED: ONDANSETRON 4MG/2ML VIAL IV PRN (21:30)
[2019-06-28] MEDS: LEVEMIR (INSULIN DETEMIR) 1 UNITS/0.01ML SC SCH (22:01)
--- NOTE | 2019-06-28 22:01 | REPVR ---
PROCEDURE INFORMATION: Exam: CT Abdomen And Pelvis Without Contrast Exam date and time: 06/28/2019 9:35 PM Age: 19 years old Clinical indication: Abdominal pain; Additional info: B/l flank pain fever R/O pyelonephritis TECHNIQUE: Imaging protocol: Computed tomography of the abdomen and pelvis without contrast. Radiation optimization: All CT scans at this facility use at least one of these dose optimization techniques: automated exposure control; mA and/or kV adjustment per patient size (includes targeted exams where dose is matched to clinical indication); or iterative reconstruction. COMPARISON: CT ABD PELVIS W/O CONTRAST 09/18/2017 8:16 PM FINDINGS: Lungs: Lung bases are clear. Liver: There are no focal liver lesions present. Gallbladder and bile ducts: The gallbladder is normal. Pancreas: Not well assessed. Spleen: The spleen is normal. Adrenals: The adrenal glands are unremarkable. Kidneys and ureters: No renal calculi or hydronephrosis. Stomach and bowel: There is no evidence of intestinal obstruction. Appendix: No evidence of appendicitis. Intraperitoneal space: There is a probable surgical clip in the right lower quadrant. Series 202, image 41. Vasculature: The aorta is unremarkable. Lymph nodes: Multiple small mesenteric lymph nodes are apparent. Bladder: The wall the urinary bladder appears mildly prominent. This is also present on the 09/18/2017 CT. Multiple calcifications are seen to the left of midline along posterior margin of the urinary bladder which are in the vicinity of the distal left ureter however it is not well visualized on this noncontrast study. These were also present on the 2018 study however are now larger. Reproductive: Uterus and adnexae are not well assessed. Bones/joints: No significant skeletal findings. Soft tissues: Unremarkable. IMPRESSION: No renal calculi are identified nor is there definite hydronephrosis. Pyelonephritis cannot be assessed on a noncontrast CT. There appears to be mild thickening of the urinary bladder wall which was also present on the prior CT in could be due to cystitis. There are multiple calcifications adjacent to the distal left ureter which were also present on the prior CT but were smaller at that time. They are perhaps most likely phleboliths and less likely in the distal left ureter. Electronically signed by: Sophia Woodward On 06/28/2019 22:01:18 PM
[2019-06-28] MEDS: HumaLOG INSULIN (NovoLOG) PER UNIT SC SCH (22:02)
--- NOTE | 2019-06-28 22:20 | HPE ---
DATE OF ADMISSION: 06/28/2019 CHIEF COMPLAINT: "Hurts to move." HISTORY OF PRESENTING ILLNESS: 19-year-old female with a history of type 1 diabetes and history of diabetic ketoacidosis (DKA), chronic hypertension, chronic kidney disease, depression, anemia, appendectomy, presents to the emergency room with acute onset of myalgias. Patient said she woke up this morning, found that her sugar was 480 and difficult to control, as well as body aches for which she took two extra-strength Advil times one dose. She had fever, which was undocumented, decrease in appetite without weight changes and whole body aches. She says, "It hurts to move" and noticed that her urine had a "strong odor and very dark." She also complains of bilateral flank pain but no dysuria, better when she used the heating pad. There is no rash or open sores. No vomiting but had some nausea today and no abdominal pain, shortness of breath, chest pain, pressure or tightness, cough, patient has not traveled outside of [facility] and has been in self-isolation for the COVID-19 pandemic. Patient otherwise denies any exposure to anyone with positive COVID-19. Denies any sore throat. In the emergency room (ER), she was found to be febrile 103.5, blood pressure 101/65 and tachycardic at 134. Urine was abnormal. She is being admitted for sepsis secondary to urinary tract infection,negative for COVID-19. PAST MEDICAL HISTORY: Type 1 diabetes with history of DKA. Chronic hypertension. Chronic kidney disease of unknown stage. Anemia. Depression. PAST SURGICAL HISTORY: Appendectomy. SOCIAL HISTORY: Uses marijuana daily since the age of 12. Smoked three cigarettes a day, quit 2 years ago. No alcohol use. Patient is currently unemployed due to COVID-19 pandemic but previously worked at [employer]. No alcohol abuse. Does not drink any alcohol. FAMILY HISTORY: Maternal grandfather with coronary artery disease, diabetes, alive in his 60s. Mother and father in their 40s, alive and well. No medical problems. Two younger brothers, age 16 and 18. HOME MEDICATIONS: - atorvastatin 10 mg daily - Glucagon emergency kit - Lispro sliding scale before food and nightly (a.c. h.s.) - lisinopril 10 mg daily - Tresiba Touchflex 30 subcu daily - OCP one table daily REVIEW OF SYSTEMS: Per history of the present illness. 12-point system otherwise negative. PHYSICAL EXAMINATION: Temperature 103.5, pulse 149, respiratory rate 20, blood pressure 103/58, 96% on room air. Generally, patient is awake, alert, oriented times three, no respiratory distress. Anicteric. No jaundice. Able to speak in full sentences. No jugular venous distention (JVD)/thyromegaly. Dry mucous membranes. Lungs are clear to auscultation. No wheezing, rales, or rhonchi. Heart: S1, S2, sinus tachycardia. No murmurs, rubs, or gallops. Abdomen: Soft, nontender, nondistended. Positive costovertebral angle tenderness bilaterally. No rebound or guarding. Positive bowel sounds times four quadrants. No hepatosplenomegaly. Extremities: No cyanosis, clubbing or pitting edema. White count 19.4, hemoglobin 12, hematocrit 39, platelet count 343, 88% neutrophils, 6% lymphocytes. Sodium 132, potassium 3.5, chloride 94, bicarbonate 26, BUN 11, ionized calcium 4.8, creatinine 0.4, glucose 275, magnesium 1.7, total bilirubin 0.6, direct bilirubin 0.1, AST 14, ALT 24, alkaline phosphatase 124, total protein 7.5, albumin 3.3, lipase 55, beta hCG less than 5, A1c 12.8, plasma glucose 321, lactic acid 3.5. Urine culture pending. Urinalysis: Cloudy urine, 2+ protein, 3+ glucose, trace ketones, 1+ blood, positive nitrite, 2+ leukocyte esterase, 100 WBCs, 1+ bacteria. ASSESSMENT AND PLAN: A 19-year-old female with a history of type 1 diabetes, diabetic ketoacidosis, hypertension, chronic kidney disease, depression, anemia, appendectomy, and chronic marijuana use, presents with acute onset today of myalgias and difficult to control hyperglycemia, found to have a fever of 103, abnormal urinalysis, and complains of flank pain. Admitted for acute pyelonephritis. IMPRESSION: 1. Sepsis secondary to urinary tract infection (UTI). Patient was given IV ceftriaxone, await urine culture. Two sets of blood cultures have been obtained. IV fluid hydration. Attempt to gain tighter glycemic control. Acetaminophen and Toradol for fever and pain control K-pad. 2. Urinary tract infection/pyelonephritis. On IV ceftriaxone, acetaminophen, and ibuprofen for pain control and fever. Currently on IV fluids. Hold off on patient's lisinopril, withholding for systolic pressure less than 140 due to 103 systolic pressure at the bedside. 3. Uncontrolled type 1 diabetes but no signs of diabetic ketoacidosis secondary to sepsis from UTI. Patient will be kept on her home dose of long-acting insulin sliding scale before food and nightly with coverage and consistent carbohydrate diet. 4. Hypertension. Lisinopril may be resumed with blood pressures greater than 140. Hold for systolic pressure less than 140 in light of acute sepsis. 5. Depression. Denies any homicidal or suicidal ideation. On no medications. 6. Marijuana use. Cessation counseling has been provided. 7. Deep vein thrombosis (DVT) prophylaxis with thromboembolism deterrent (JUNIE) compression stockings. 8. Diet: Consistent carbohydrate diet. CODE STATUS: FULL CODE. MTDD
--- NOTE | 2019-06-28 23:55 | REP ---
CHEST, TWO VIEWS: There is no evidence of acute infiltrate. No pleural effusion is seen. The heart is normal in size. The mediastinal silhouette is unremarkable. The visualized osseous structures are intact. IMPRESSION: No acute pulmonary disease. Electronically Signed by Major Gutierrez MD 06/29/2019 04:55 P
[2019-06-29] VITALS (12 sets, daily range): BP systolic 90–141; BP diastolic 54–85
[2019-06-29] MEDS ORDERED: NS 1,000 ML IV SCH
[2019-06-29] MEDS ORDERED: POTASSIUM CHLORIDE 10 MEQ SR TABLET PO ONE (01:30)
[2019-06-29] MEDS ORDERED: NS 500 ML IV ONE (01:30)
[2019-06-29] MEDS ORDERED: MAGNESIUM OXIDE 400 MG TAB (MAG-OX) PO ONE (01:30)
[2019-06-29] MEDS: NS 1,000 ML IV SCH ×4 (01:49→18:07)
--- NOTE | 2019-06-29 01:59 | REP ---
Clinical: Fever . Comparison: 06/28/2019 . Technique: PA and lateral. Findings: The mediastinum and cardiac silhouette are normal. The lung franklin are clear and without acute consolidation, effusion, or pneumothorax. The skeletal structures are intact and normal. Impression: 1. No acute cardiopulmonary process. Electronically Signed by Igor Zhang MD 06/29/2019 01:50 A
[2019-06-29] MEDS: KETOROLAC 30 MG/ML 1ML VIAL IV PRN ×2 (04:33→21:38)
[2019-06-29 04:36] LABS: BASO % 0.2 % (0.0-1.0); EOS % 0.1 % (0.0-3.0); HEMOGLOBIN 10.9 g/dl (12.0-15.5); LYMPH # 1.6 10^3/uL (1.5-5.0); LYMPH % 8.8 % (24.0-44.0); MEAN CORPUSCULAR HEMOGLOBIN 24.8 pg (27.0-33.0); MEAN CORPUSCULAR HGB CONC 30.3 g/dl (32.0-36.5); MEAN CORPUSCULAR VOLUME 81.8 fl (80.0-96.0); MONO # 1.1 10^3/uL (0.0-0.8); NEUTROPHILS # 15.5 10^3/uL (1.5-8.5); NEUTROPHILS % 84.2 % (36.0-66.0); PLATELET COUNT, AUTOMATED 273 10^3/uL (150-450); WHITE BLOOD COUNT 18.4 10^3/uL (4.0-10.0)
[2019-06-29 04:57] LABS: BLOOD UREA NITROGEN 10 MG/DL (7-18); CALCIUM LEVEL 7.2 MG/DL (8.5-10.1); CARBON DIOXIDE LEVEL 22 MEQ/L (21-32); CHLORIDE LEVEL 109 MEQ/L (98-107); CREATININE FOR GFR 0.58 MG/DL (0.55-1.30); GLUCOSE, FASTING 164 MG/DL (70-100); POTASSIUM SERUM 4.1 MEQ/L (3.5-5.1); SODIUM LEVEL 138 MEQ/L (136-145)
[2019-06-29] MEDS: MORPHINE 2 MG/ML 1ML VIAL (J2270) IV PRN (05:50)
[2019-06-29] MEDS: HumaLOG INSULIN (NovoLOG) PER UNIT SC SCH ×4 (07:30→20:05)
[2019-06-29] MEDS ORDERED: SODIUM CHLORIDE 0.9% 1000ML IV ONE (07:45)
[2019-06-29] MEDS: ATORVASTATIN 10 MG TAB PO SCH (08:11)
[2019-06-29] MEDS: cefTRIAXone SOD 2 GM in D5W MINI-BAG PLUS 50 ML IV SCH (08:14)
[2019-06-29] MEDS ORDERED: MORPHINE 2 MG/ML 1ML VIAL (J2270) IV ONE (08:15)
[2019-06-29] MEDS ORDERED: lisinopriL 10 MG TAB PO SCH (09:00)
[2019-06-29] MEDS ORDERED: IBUPROFEN 600 MG TAB PO ONE (10:15)
--- NOTE | 2019-06-29 12:30 | IPNPDOC ---
Subjective Date Seen The patient was seen on 06/29/19. Subjective Chief Complaint/HPI Patient seen and examined at bedside this morning. As per nursing staff, patient was found to be febrile, tachycardic to the 140s, and mildly hypotensive which did improve with multiple fluid boluses. Issue clinic complaining of diffuse pain throughout her body and feels like she got beat up. She cannot quantify or describe any specific location of the pain. Patient reports having fevers, chills, mild shortness of breath. Denies any chest pain, coughing, abdominal pain, nausea, vomiting. Bedside EKG was performed and showed sinus tachycardia at 140s. Fluids were started, Tylenol was given, patient to be transferred to PCU. General: Reports: Chills, Fatigue, Other Symptoms (diffuse body pain) Constitutional: Reports: Chills, Fever, Weakness Eyes: Denies: Pain, Vision change, Conjunctivae inflammation ENT: Denies: Head Aches, Ear Pain, Sinus Congestion, Sore Throat Skin: Denies: Rash, Lesions, Jaundice Pulmonary: Denies: Dyspnea, Cough, Pleuritic Chest Pain Cardiovascular: Reports: Palpitations; Denies: Chest Pain, Orthopnea, Edema, Lt Headedness Gastrointestinal: Reports: Abdominal Pain; Denies: Nausea, Vomiting, Diarrhea, Constipation, Melena Genitourinary: Denies: Dysuria, Frequency, Incontinence Hematologic: Denies: Bruising, Bleeding Excessively Musculoskeletal: Reports: Neck Pain, Back Pain, Shoulder Pain, Arm Pain, Hand Pain, Leg Pain, Foot Pain, Joint Pain, Muscle Pain Neurological: Denies: Weakness, Numbness, Incoordination, Change in speech, Confusion Psych: Reports: Anxiety Objective Physical Examination General Exam: Positive: Alert, Cooperative, Mild Distress (appears to be ill appearance, uncomfortable on the bed) Eye Exam: Positive: PERRLA, Conjunctiva & lids normal, EOMI; Negative: Sclera icteric ENT Exam: Positive: Atraumatic, Pharynx Normal, Tongue Midline, Other ENT (mucous membranes appear to be dry) Neck Exam: Positive: Supple; Negative: JVD, thyromegaly Chest Exam: Positive: Clear to auscultation, Normal air movement; Negative: Rales, Rhonchi, Wheezing Heart Exam: Positive: Tachycardic (rate in the 140s), Regular Rhythm, Normal S1, Normal S2 Telemetry: Positive: Tachycardia Abdomen Exam: Positive: Normal bowel sounds, Soft; Negative: Tenderness, Hepatospenomegaly, Mass Extremity Exam: Negative: Clubbing, Cyanosis, Edema Skin Exam: Positive: Nl turgor and temperature; Negative: Rash, Breakdown, Lesion Neuro Exam: Positive: Normal Gait, Normal Speech, Strength at 5/5 X4 ext, Normal Tone, Sensation Intact Psych Exam: Positive: Anxiety, Oriented x 3 Assessment /Plan Assessment 19-year-old female with type 1 diabetes, hypertension, CTD, depression, chronic marijuana use presents with diffuse spine pain, aches. Found to have a UTI and likely pyelonephritis. Patient going into severe sepsis given her elevated lactate, borderline blood pressures, tachycardia. Patient did receive her antibiotics this morning and will upgrade to PCU for further monitoring. Given her labs, unlikely to be in DKA at this time. We'll treat as severe sepsis secondary to pyelonephritis. Plan/VTE VTE Prophylaxis Ordered?: Yes Plan IVF: Initiate Diet: Continue Current Activity: Continue Current Medications: Replete Electrolytes IV, Replete Electrolytes PO, Increase Pain Meds, Start Antibiotics Diagnostics: Check Labs, Repeat Labs in AM Anticipated Discharge: Home 1. Sepsis secondary to pyelonephritis - - Patient upgraded to PCU for further monitoring. Continue with telemetry mo nitoring, IV fluid hydration - Continue ceftriaxone IV - Follow up blood cultures and urine cultures - Tighter glycemic control - When necessary Tylenol, Toradol, Percocet for pain and fever 2. Type 1 diabetes - currently not in DKA at this time. - Continue with home dose insulin sliding scale and diabetic diet 3. Hypertension - currently hypotensive likely due to sepsis. - Hold all BP medications at this time 4. Depression - stable. No inpatient interventions required 5. Marijuana use - chronic. Counseling has been provided. VS, I&O, 24H, Fishbone Vital Signs/I&O Vital Signs Date Time Temp Pulse Resp B/P (MAP) Pulse Ox O2 Delivery O2 Flow Rate FiO2 06/29/19 10:25 100.4 128 20 109/65 (80) 93 Room Air I&O- Last 24 Hours up to 6 AM 06/29/19 06:00 Intake Total 2830 ml Output Total 900 ml Balance 1930 ml Laboratory Data 24H LABS Laboratory Tests 2 06/28/19 17:13: Bedside Glucose (Misc Panel) 148H 06/28/19 17:57: Immature Granulocyte % (Auto) 0.5, Neutrophils (%) (Auto) 88.2H, Lymphocytes (%) (Auto) 6.2L, Monocytes (%) (Auto) 4.8, Eosinophils (%) (Auto) 0.1, Basophils (%) (Auto) 0.2, Neutrophils # (Auto) 17.2H, Lymphocytes # (Auto) 1.2L, Monocytes # (Auto) 0.9H, Eosinophils # (Auto) 0.0, Basophils # (Auto) 0.0, Nucleated Red Blood Cells % (auto) 0.0, Blood Gas Bicarbonate Standard 22.5, Venous Blood pH 7.314L, Venous Blood Partial Pressure CO2 51.7H, Venous Blood Partial Pressure O2 29.7L, Venous Blood Total Carbon Dioxide 27.3, Venous Blood HCO3 25.7, Venous Blood Oxygen Saturation 48.8L, Venous Blood Base Excess -1.1, Estimated Mean Plasma Glucose 321H, Hemoglobin A1c 12.8, Osmolality 280, Phosphorus Level 4.7, Magnesium Level 1.7L, Total Bilirubin 0.6, Direct Bilirubin 0.1, Aspartate Amino Transf (AST/SGOT) 14, Alanine Aminotransferase (ALT/SGPT) 24, Alkaline Phosphatase 124H, Total Protein 7.5, Albumin 3.3, Albumin/Globulin Ratio 0.79L, Lipase 55L, B-Hydroxybutyrate 1.47 06/28/19 17:58: Urine Color YELLOW, Urine Appearance CLOUDYH, Urine pH 5.0, Urine Specific [place] 1.015, Urine Protein 2+H, Urine Glucose (UA) 3+H, Urine Ketones TRACEH, Urine Blood 1+H, Urine Nitrite POSITIVEH, Urine Bilirubin NEGATIVE, Urine Urobilinogen 0.2, Urine Leukocyte Esterase 2+H, Urine WBC (Auto) 100H, Urine RBC (Auto) 5H, Urine Hyaline Casts (Auto) 0, Urine Bacteria (Auto) 1+H, Urine Squamous Epithelial Cells 3, Urine Sperm (Auto) 06/28/19 18:21: POC Glucose (Misc Panel) 154H, POC Sodium (Misc Panel) 132L, POC Potassium (Misc Panel) 3.5, POC Chloride (Misc Panel) 94L, POC Total CO2 (Misc Panel) 26.0, POC Blood Urea Nitrogen (Misc Panel 11, POC Ionized Calcium (Misc Panel) 4.8, POC Creatinine (Misc Panel) 0.4L, POC Hematocrit (Misc Panel) 47.0 06/28/19 18:22: POC Beta HCG, Quantitative < 5.0 06/28/19 19:42: Lactic Acid Level 3.5*H 06/28/19 20:32: Bedside Glucose (Misc Panel) 275H 06/28/19 21:46: Bedside Glucose (Misc Panel) 311H 06/28/19 22:19: Coronavirus (COVID-19)(PCR) NEGATIVE 06/29/19 00:31: Lactic Acid Level 4.7*H 06/29/19 04:22: Lactic Acid Level 3.3*H, Immature Granulocyte % (Auto) 0.7, Neutrophils (%) (Auto) 84.2H, Lymphocytes (%) (Auto) 8.8L, Monocytes (%) (Auto) 6.0H, Eosinophils (%) (Auto) 0.1, Basophils (%) (Auto) 0.2, Neutrophils # (Auto) 15.5H, Lymphocytes # (Auto) 1.6, Monocytes # (Auto) 1.1H, Eosinophils # (Auto) 0.0, Basophils # (Auto) 0.0, Nucleated Red Blood Cells % (auto) 0.0, Anion Gap 7L, Calcium Level 7.2L, Magnesium Level 1.6L 06/29/19 07:38: Bedside Glucose (Misc Panel) 74 06/29/19 08:59: Bedside Glucose (Misc Panel) 106H 06/29/19 09:03: Lactic Acid Followup at 4 Hours 3.8*H 06/29/19 11:59: Bedside Glucose (Misc Panel) 62L CBC/BMP Laboratory Tests 06/28/19 17:57 06/29/19 04:22 Microbiology Microbiology 06/29/19 Blood Culture, Received Pending 06/29/19 Blood Culture, Received Pending 06/28/19 Respiratory Virus Panel (PCR) ([facility]) - Final, Complete 06/28/19 Urine Culture, Received Pending TIMOTHY GIORDANO MD Jun 29, 2019 12:30
[2019-06-29] MEDS: PERCOCET 5MG/325MG TAB PO PRN (20:02)
[2019-06-29] MEDS: LEVEMIR (INSULIN DETEMIR) 1 UNITS/0.01ML SC SCH (20:05)
[2019-06-30] VITALS: BP 111/57
--- NOTE | 2019-06-30 01:01 | ECGEPIP ---
[facility] Test Date: 2019-06-29 Pat Name: JOZEF GARCES Department: Room: [place] [address] Gender: Female Sapp[employer] Grinder: KRYSTIN : 2000 Requested By: TIMOTHY Saleh Order Number: [id number] Reading MD: Yahir Mosqueda Measurements Intervals [place] Rate: 135 P: 50 HI: 146 QRS: 0 QRSD: 88 T: 33 QT: 293 QTc: 439 Interpretive Statements SINUS TACHYCARDIA LOW QRS VOLTAGE IN EXTREMITY LEADS Nonspecific ST-T wave abnormalities Electronically Signed on 06-30-2019 1:01:38 EDT by Yahir Mosqueda
[2019-06-30] MEDS: NS 1,000 ML IV SCH ×3 (01:10→17:36)
[2019-06-30] MEDS: MORPHINE 2 MG/ML 1ML VIAL (J2270) IV PRN ×3 (03:42→17:36)
[2019-06-30 04:00] VITALS: BP 135/89
[2019-06-30] MEDS ORDERED: HumaLOG INSULIN (NovoLOG) PER UNIT SC ONE (05:30)
[2019-06-30] MEDS ORDERED: LEVEMIR (INSULIN DETEMIR) 1 UNITS/0.01ML SC ONE (05:30)
[2019-06-30 05:50] LABS: HEMOGLOBIN 9.8 g/dl (12.0-15.5); MEAN CORPUSCULAR HGB CONC 30.6 g/dl (32.0-36.5); MEAN CORPUSCULAR VOLUME 81.6 fl (80.0-96.0); PLATELET COUNT, AUTOMATED 252 10^3/uL (150-450); RED BLOOD COUNT 3.92 10^6/uL (4.00-5.40); WHITE BLOOD COUNT 13.4 10^3/uL (4.0-10.0)
[2019-06-30 06:07] LABS: BLOOD UREA NITROGEN 8 MG/DL (7-18); CALCIUM LEVEL 7.4 MG/DL (8.5-10.1); CARBON DIOXIDE LEVEL 19 MEQ/L (21-32); CHLORIDE LEVEL 107 MEQ/L (98-107); CREATININE FOR GFR 0.48 MG/DL (0.55-1.30); GLUCOSE, FASTING 371 MG/DL (70-100); SODIUM LEVEL 137 MEQ/L (136-145)
[2019-06-30 06:17] LABS: LYMPHOCYTES 6 % (16-44); MONOCYTES 6 % (0-5); NEUTROPHILS 81 % (28-66)
[2019-06-30 06:18] LABS: HYPOCHROMASIA 1+
[2019-06-30 06:19] LABS: PLATELET ESTIMATE NORMAL (NORMAL)
[2019-06-30 08:00] VITALS: BP 118/75
[2019-06-30] MEDS: HumaLOG INSULIN (NovoLOG) PER UNIT SC SCH ×4 (08:53→19:46)
[2019-06-30] MEDS: cefTRIAXone SOD 2 GM in D5W MINI-BAG PLUS 50 ML IV SCH (08:54)
[2019-06-30] MEDS: ATORVASTATIN 10 MG TAB PO SCH (08:54)
--- NOTE | 2019-06-30 11:06 | IPNPDOC ---
Subjective Date Seen The patient was seen on 06/30/19. Subjective Chief Complaint/HPI Patient seen and examined this morning at bedside. Patient states that she feels much better today than she did yesterday. She denies any new chills, fevers, shortness of breath, chest pain, abdominal pain, nausea, vomiting. She reports that her blood sugar was a little low this morning as she had received a significant amount of insulin yesterday due to her elevated blood sugars. Otherwise, she has no complaints at this time. Other systems 10 point review of systems is negative except for what is stated above in the subjective Objective Physical Examination General Exam: Positive: Alert, Cooperative, No Acute Distress Eye Exam: Positive: PERRLA, Conjunctiva & lids normal, EOMI; Negative: Sclera icteric ENT Exam: Positive: Atraumatic, Mucous membr. moist/pink, Pharynx Normal, Tongue Midline Neck Exam: Positive: Supple; Negative: JVD, thyromegaly Chest Exam: Positive: Clear to auscultation, Normal air movement; Negative: Rales, Rhonchi, Wheezing Heart Exam: Positive: Rate Normal, Regular Rhythm, Normal S1, Normal S2; Negative: Murmurs Telemetry: Positive: Sinus Abdomen Exam: Positive: Normal bowel sounds, Soft; Negative: Tenderness, Hepatospenomegaly, Mass Extremity Exam: Negative: Clubbing, Cyanosis, Edema Skin Exam: Positive: Nl turgor and temperature; Negative: Rash, Breakdown, Lesion Neuro Exam: Positive: Normal Gait, Normal Speech, Strength at 5/5 X4 ext, Normal Tone, Sensation Intact Psych Exam: Positive: Mental status NL, Mood NL, Oriented x 3 Assessment /Plan Assessment 19-year-old female with type 1 diabetes, hypertension, CTD, depression, chronic marijuana use presents with diffuse spine pain, aches. Found to have a UTI and likely pyelonephritis. Patient appears much better this morning after antibiotics were given yesterday. White count is defervesced nicely and patient is currently improving. Urine culture is growing Escherichia coli (pansensi tive). We'll monitor for 24 hours and discharge tomorrow morning Plan/VTE VTE Prophylaxis Ordered?: Yes Plan IVF: Initiate Diet: Continue Current Activity: Continue Current Medications: Change to PO, Replete Electrolytes IV, Replete Electrolytes PO, Decrease pain Meds, Start Antibiotics Diagnostics: Check Labs, Repeat Labs in AM Anticipated Discharge: Home (within 24 hours) 1. Sepsis secondary to pyelonephritis - improved Patient is clinically improved today. She has been afebrile, tachycardia has improved, and white count is defervesced nicely. Urine cultures are growing pansensitive Escherichia coli at this time. Will switch to by mouth medications upon discharge. Anticipate DC tomorrow morning - Continue ceftriaxone IV - Follow up blood cultures and urine cultures - Tighter glycemic control - When necessary Tylenol, Toradol, Percocet for pain and fever 2. Type 1 diabetes - currently not in DKA at this time. Fingersticks have been slightly elevated and therefore she was given 30 units of insulin overnight. Hyperglycemia should improve once sepsis resolves. - Continue with home dose insulin sliding scale and diabetic diet 3. Hypertension - currently hypotensive likely due to sepsis. - Hold all BP medications at this time 4. Depression - stable. No inpatient interventions required 5. Marijuana use - chronic. Counseling has been provided. VS, I&O, 24H, Fishbone Vital Signs/I&O Vital Signs Date Time Temp Pulse Resp B/P (MAP) Pulse Ox O2 Delivery O2 Flow Rate FiO2 06/30/19 10:55 20 Room Air 06/30/19 08:00 98.6 114 118/75 (89) 97 I&O- Last 24 Hours up to 6 AM 06/30/19 06:00 Intake Total 4000 ml Output Total 1400 ml Balance 2600 ml Laboratory Data 24H LABS Laboratory Tests 2 06/29/19 11:59: Bedside Glucose (Misc Panel) 62L 06/29/19 12:21: Bedside Glucose (Misc Panel) 63L 06/29/19 12:41: Bedside Glucose (Misc Panel) 99 06/29/19 17:00: Bedside Glucose (Misc Panel) 186H 06/29/19 20:04: Bedside Glucose (Misc Panel) 165H 06/30/19 04:32: Neutrophils (%) (Auto) , Nucleated Red Blood Cells % (auto) 0.0, Neutrophils 81H, Band Neutrophils 7, Lymphocytes (Manual) 6L, Monocytes (Manual) 6H, Hypochromasia 1+, Platelet Estimate NORMAL, Anion Gap 11, Calcium Level 7.4L 06/30/19 05:00: Bedside Glucose (Misc Panel) 420H 06/30/19 07:41: Bedside Glucose (Misc Panel) 228H CBC/BMP Laboratory Tests 06/30/19 04:32 Microbiology Microbiology 06/29/19 Blood Culture - Preliminary, Resulted No growth after 24 hours . All specim... 06/29/19 Blood Culture - Preliminary, Resulted No growth after 24 hours . All specim... 06/28/19 Respiratory Virus Panel (PCR) ([facility]) - Final, Complete 06/28/19 Urine Culture - Final, Complete Escherichia Coli TIMOTHY GIORDANO MD Jun 30, 2019 11:06
[2019-06-30 12:00] VITALS: BP 148/79
[2019-06-30] MEDS: KETOROLAC 30 MG/ML 1ML VIAL IV PRN ×2 (12:38→19:56)
[2019-06-30 16:00] VITALS: BP 130/86
[2019-06-30] MEDS: LEVEMIR (INSULIN DETEMIR) 1 UNITS/0.01ML SC SCH (19:47)
[2019-06-30 20:00] VITALS: BP 137/90
[2019-07-01] VITALS: BP 145/97
[2019-07-01] MEDS: NS 1,000 ML IV SCH ×2 (00:01→07:31)
[2019-07-01 04:00] VITALS: BP 119/82
[2019-07-01] MEDS: KETOROLAC 30 MG/ML 1ML VIAL IV PRN (05:18)
[2019-07-01 05:57] LABS: BASO % 0.2 % (0.0-1.0); EOS # 0.1 10^3/uL (0.0-0.5); EOS % 1.2 % (0.0-3.0); HEMATOCRIT 34.7 % (36.0-47.0); HEMOGLOBIN 10.6 g/dl (12.0-15.5); LYMPH # 1.6 10^3/uL (1.5-5.0); LYMPH % 17.5 % (24.0-44.0); MEAN CORPUSCULAR HEMOGLOBIN 24.5 pg (27.0-33.0); MEAN CORPUSCULAR HGB CONC 30.5 g/dl (32.0-36.5); MEAN CORPUSCULAR VOLUME 80.3 fl (80.0-96.0); MONO # 0.7 10^3/uL (0.0-0.8); MONO % 8.1 % (0.0-5.0); NEUTROPHILS # 6.6 10^3/uL (1.5-8.5); NEUTROPHILS % 72.2 % (36.0-66.0); PLATELET COUNT, AUTOMATED 286 10^3/uL (150-450); RED BLOOD COUNT 4.32 10^6/uL (4.00-5.40); WHITE BLOOD COUNT 9.1 10^3/uL (4.0-10.0)
[2019-07-01 06:23] LABS: BLOOD UREA NITROGEN 4 MG/DL (7-18); CALCIUM LEVEL 7.5 MG/DL (8.5-10.1); CARBON DIOXIDE LEVEL 20 MEQ/L (21-32); CHLORIDE LEVEL 110 MEQ/L (98-107); CREATININE FOR GFR 0.43 MG/DL (0.55-1.30); GLUCOSE, FASTING 181 MG/DL (70-100); POTASSIUM SERUM 3.4 MEQ/L (3.5-5.1); SODIUM LEVEL 139 MEQ/L (136-145)
[2019-07-01 08:00] VITALS: BP 141/87
[2019-07-01] MEDS: ATORVASTATIN 10 MG TAB PO SCH (08:29)
[2019-07-01] MEDS: PERCOCET 5MG/325MG TAB PO PRN ×2 (08:30)
[2019-07-01] MEDS: cefTRIAXone SOD 2 GM in D5W MINI-BAG PLUS 50 ML IV SCH (08:30)
[2019-07-01] MEDS ORDERED: LEVA1TAB2 PO (08:41)
--- NOTE | 2019-07-01 08:47 | DS.PDOC ---
Discharge Summary General Date of Admission Jun 28, 2019 at 17:00 Date of Discharge 07/01/19 Discharge Summary PROCEDURES PERFORMED DURING STAY: None. ADMITTING DIAGNOSES: 1. Sepsis due to urinary tract infection. DISCHARGE DIAGNOSES: 1. Sepsis due to urinary tract infection. COMPLICATIONS/CHIEF COMPLAINT: Fever Uti. HISTORY OF PRESENT ILLNESS: 19-year-old female with a history of type 1 diabetes and history of diabetic ketoacidosis (DKA), chronic hypertension, chronic kidney disease, depression, anemia, appendectomy, presents to the emergency room with acute onset of myalgias. Patient said she woke up this morning, found that her sugar was 480 and difficult to control, as well as body aches for which she took two extra-strength Advil times one dose. She had fever, which was undocumented, decrease in appetite without weight changes and whole body aches. She says, "It hurts to move" and noticed that her urine had a "strong odor and very dark." She also complains of bilateral flank pain but no dysuria, better when she used the heating pad. There is no rash or open sores. No vomi ting but had some nausea today and no abdominal pain, shortness of breath, chest pain, pressure or tightness, cough, patient has not traveled outside of [facility] and has been in self-isolation for the COVID-19 pandemic. Patient otherwise denies any exposure to anyone with positive COVID-19. Denies any sore throat. In the emergency room (ER), she was found to be febrile 103.5, blood pressure 101/65 and tachycardic at 134. Urine was abnormal. She is being admitted for sepsis secondary to urinary tract infection,negative for COVID-19.. HOSPITAL COURSE: Patient was admitted to the medical floor for further management. Patient developed severe sepsis that she became tachycardic, febrile, and mildly hypotensive. She was given multiple fluid boluses and transferred to PCU. Patient responded well to antibiotic therapy and her symptoms began to improve. Her white count defervesced and is now normal. Her urine cultures are growing pansensitive Escherichia coli. Patient had received 3 days of antibiotics and is now medically stable for discharge. Patient will need to complete 7 days of antibiotic treatment to treat the infection. She will be discharged on 4 additional days of Levaquin 500 mg daily. DISCHARGE MEDICATIONS: Please see below. ALLERGIES: Please see below. PHYSICAL EXAMINATION ON DISCHARGE: General Exam: Positive: Alert, Cooperative, No Acute Distress Eye Exam: Positive: PERRLA, Conjunctiva & lids normal, EOMI; Negative: Sclera icteric ENT Exam: Positive: Atraumatic, Mucous membr. moist/pink, Pharynx Normal, Tongue Midline Neck Exam: Positive: Supple; Negative: JVD, thyromegaly Chest Exam: Positive: Clear to auscultation, Normal air movement; Negative: Rales, Rhonchi, Wheezing Heart Exam: Positive: Rate Normal, Regular Rhythm, Normal S1, Normal S2; Negative: Murmurs Telemetry: Positive: Sinus Abdomen Exam: Positive: Normal bowel sounds, Soft; Negative: Tenderness, Hepatospenomegaly, Mass Extremity Exam: Negative: Clubbing, Cyanosis, Edema Skin Exam: Positive: Nl turgor and temperature; Negative: Rash, Breakdown, Lesion Neuro Exam: Positive: Normal Gait, Normal Speech, Strength at 5/5 X4 ext, Normal Tone, Sensation Intact Psych Exam: Positive: Mental status NL, Mood NL, Oriented x 3 LABORATORY DATA: Please see below. IMAGING: CT abdomen pelvis - No renal calculi are identified nor is there definite hydronephrosis. Pyelonephritis cannot be assessed on a noncontrast CT. There appears to be mild thickening of the urinary bladder wall which was also present on the prior CT in could be due to cystitis. There are multiple calcifications adjacent to the distal left ureter which were also present on the prior CT but were smaller at that time. They are perhaps most likely phleboliths and less likely in the distal left ureter. PROGNOSIS: Good, patient should make a full recovery ACTIVITY: As tolerated. DIET: Diabetic diet DISCHARGE PLAN: Medically stable for discharge home DISCHARGE INSTRUCTIONS: 1. Please follow-up with your PCP within the next 5-7 days. 2. Take 1 tablet Levaquin 500 mg daily for 4 additional days. ITEMS TO FOLLOWUP ON ON OUTPATIENT: 1. General wellness visit. DISCHARGE CONDITION: Stable TIME SPENT ON DISCHARGE: 20 minutes Vital Signs/I&Os Vital Signs Date Time Temp Pulse Resp B/P (MAP) Pulse Ox O2 Delivery O2 Flow Rate FiO2 07/01/19 08:30 20 Room Air 07/01/19 08:00 98.0 90 141/87 (105) 90 I&O- Last 24 Hours up to 6 AM 07/01/19 06:00 Intake Total 4130 ml Output Total 2000 ml Balance 2130 ml Laboratory Data Labs 24H Laboratory Tests 2 06/30/19 12:27: Bedside Glucose (Misc Panel) 104 06/30/19 16:33: Bedside Glucose (Misc Panel) 68L 06/30/19 19:31: Bedside Glucose (Misc Panel) 80 07/01/19 00:03: Bedside Glucose (Misc Panel) 107H 07/01/19 05:20: Immature Granulocyte % (Auto) 0.8, Neutrophils (%) (Auto) 72.2H, Lymphocytes (%) (Auto) 17.5L, Monocytes (%) (Auto) 8.1H, Eosinophils (%) (Auto) 1.2, Basophils (%) (Auto) 0.2, Neutrophils # (Auto) 6.6, Lymphocytes # (Auto) 1.6, Monocytes # (Auto) 0.7, Eosinophils # (Auto) 0.1, Basophils # (Auto) 0.0, Nucleated Red Blood Cells % (auto) 0.0, Anion Gap 9, Calcium Level 7.5L CBC/BMP Laboratory Tests 07/01/19 05:20 FSBS Laboratory Tests Test 06/30/19 12:27 06/30/19 16:33 06/30/19 19:31 07/01/19 00:03 Range/Units Bedside Glucose (Misc Panel) 104 68 80 107 70-105 MG/DL Microbiology Microbiology 06/29/19 Blood Culture - Preliminary, Resulted No Growth after 48 hours. All Specime... 06/29/19 Blood Culture - Preliminary, Resulted No Growth after 48 hours. All Specime... 06/28/19 Respiratory Virus Panel (PCR) ([facility]) - Final, Complete 06/28/19 Urine Culture - Final, Complete Escherichia Coli Discharge Medications Scheduled Atorvastatin Calcium (Atorvastatin Calcium) 10 Mg Tablet, 10 MG PO DAILY, (Reported) Insulin Degludec (Tresiba Flextouch U-100) 100 Unit/1 Ml Insuln.pen, 30 UNIT SC DAILY, (Reported) Insulin Human Lispro (Humalog) 1 Units/0.01 Ml Inj, 1 DOSE SC AC, (Reported) SLIDING SCALE PER DEANNE (ALSO USES UNITS PER GRAM OF CARB DOSING THROUGHOUT THE DAY) Levofloxacin (Levaquin) 500 Mg Tablet, 500 MG PO DAILY Take 1 tablet daily for 4 days. Lisinopril (Lisinopril) 10 Mg Tab, 10 MG PO DAILY, (Reported) l-Norgest/E.estradiol-E.estrad (Simpesse 0.15-0.03-0.01 mg Tab) 1 Each Tbdspk.3mo, 1 TAB PO DAILY, (Reported) Scheduled PRN Glucagon,Human Recombinant (Glucagon Emergency Kit) 1 Mg Kit, 1 MG IM ASDIRECTED PRN for LOW BLOOD SUGAR, (Reported) Allergies Coded Allergies: Pistachio (Verified Allergy, Unknown, 04/25/19) TIMOTHY GIORDANO MD Jul 01, 2019 08:47
[2019-07-01] MEDS: HumaLOG INSULIN (NovoLOG) PER UNIT SC SCH (09:20)
== END 2019-07-01 12:50 | disposition home or self-care (01) ==
LOC: M ED 16:59 → M ED INP 17:00 → ENRESERVTM 23:31 → ENRESERVDT 23:31 → M MS5PR 23:56 → M PCU 06-29 08:30
PROVIDERS: ADMIT General Practice; ATTEND Internal Medicine
DX: A41.51 Sepsis due to Escherichia coli [E. coli] (principal); N39.0 Urinary tract infection, site not specified; E10.65 Type 1 diabetes mellitus with hyperglycemia; Z79.4 Long term (current) use of insulin; N18.9 Chronic kidney disease, unspecified; I12.9 Hypertensive chronic kidney disease with stage 1 through stage 4 chronic kidney disease, or unspecified chronic kidney disease; D64.9 Anemia, unspecified; F32.9 Major depressive disorder, single episode, unspecified; Z79.899 Other long term (current) drug therapy; Z87.891 Personal history of nicotine dependence; F12.10 Cannabis abuse, uncomplicated
CPT/HCPCS: 36415; 71046; 74176; 80047; 80048; 80076; 81001; 82010; 82803; 83036; 83605; 83690; 83735; 83930; 84100; 84702; 85025; 87040; 87088; 87186; 87486; 87581; 87633; 87798; 93005; 96361; 96365; 96366; 96375; 96376; 99284; J0696; J1885; J2270; J2405; U0002

== ENCOUNTER 2019-10-24 17:47 | Emergency (ER) | payer OTHER ==
[~2019-10-24 17:47] MED LIST changes: +ATOR1TAB19 PO; +LEVA1TAB2 PO
[2019-10-24] MEDS ORDERED: HumuLIN R (REGULAR) INSULIN (NovoLIN R) **100U/ML** PER UNIT ONE (18:28)
[2019-10-24] MEDS ORDERED: HumuLIN R (REGULAR) INSULIN (NovoLIN R) **100U/ML** PER UNIT As Ordered ONE (18:28)
[2019-10-24] MEDS ORDERED: CIPROFLOXACIN/D5W 400 MG/200 ML BAG (J0744) As Ordered ONE (19:41)
[2019-10-24] MEDS ORDERED: CIPROFLOXACIN 500MG TABLET As Ordered ONE (19:43)
[2019-10-24] MEDS ORDERED: CIPROFLOXACIN 500MG TABLET ONE (19:43)
[2019-12-06 11:11] LABS: APPEARANCE, URINE MANUAL CLEAR (CLEAR); BILIRUBIN, URINE MANUAL NEGATIVE (NEGATIVE); BLOOD URINE MANUAL POSITIVE (NEGATIVE); COLOR, URINE MANUAL YELLOW (YELLOW); GLUCOSE, URINE (UA) MANUAL 4+(1000 MG/DL) mg/dL (NEGATIVE); KETONE, URINE MANUAL NEGATIVE (NEGATIVE); LEUKOCYTE ESTERASE, URINE MAN POSITIVE (NEGATIVE); NITRITE, URINE MANUAL POSITIVE (NEGATIVE); PROTEIN, URINE MANUAL NEGATIVE (NEGATIVE); UROBILINOGEN, URINE MANUAL NORMAL (NORMAL)
[2019-12-06 11:12] LABS: BACTERIA, URINE LARGE AMOUNT; HYALINE CAST, URINE NONE SEEN /lpf (0-1); MUCUS, URINE SMALL AMOUNT (NEGATIVE); SQUAMOUS EPITHELIAL CELL URINE SMALL AMOUNT /hpf (SMALL AMT)
[2019-12-08 19:47] LABS: HEMATOCRIT 36.9 % (36.0-47.0); HEMOGLOBIN 12.2 g/dl (12.0-15.5); MEAN CORPUSCULAR HEMOGLOBIN 27.5 pg (27.0-33.0); MEAN CORPUSCULAR HGB CONC 33.1 g/dl (32.0-36.5); MEAN CORPUSCULAR VOLUME 83.3 fl (80.0-96.0); PLATELET COUNT, AUTOMATED 389 10^3/uL (150-450); RED BLOOD COUNT 4.43 10^6/uL (4.00-5.40); WHITE BLOOD COUNT 8.5 10^3/uL (4.0-10.0)
[2020-01-09 11:10] LABS: ALBUMIN 2.8 GM/DL (3.2-5.2); ALT/SGPT 20 U/L (12-78); AMPHETAMINES LEVEL URINE NEGATIVE (NEGATIVE); BARBITURATES URINE NEGATIVE (NEGATIVE); BENZODIAZEPINES URINE NEGATIVE (NEGATIVE); BILIRUBIN,TOTAL 0.1 MG/DL (0.2-1.0); BLOOD UREA NITROGEN 11 MG/DL (7-18); CALCIUM LEVEL 9.2 MG/DL (8.5-10.1); CANNABINOIDS URINE NEGATIVE (NEGATIVE); CARBON DIOXIDE LEVEL 24 MEQ/L (21-32); CHLORIDE LEVEL 99 MEQ/L (98-107); COCAINE METABOLITE URINE NEGATIVE (NEGATIVE); CREATININE FOR GFR 0.75 MG/DL (0.55-1.30); ETHYL ALCOHOL (ETHANOL) < 0.003 % (0.000-0.010); GLUCOSE, FASTING 323 MG/DL (70-100); LIPASE 71 U/L (73-393); METHADONE URINE NEGATIVE (NEGATIVE); OPIATES URINE NEGATIVE (NEGATIVE); PHENCYCLIDINE URINE NEGATIVE (NEGATIVE); POTASSIUM SERUM 3.8 MEQ/L (3.5-5.1); SODIUM LEVEL 135 MEQ/L (136-145)
[2020-01-09 11:14] LABS: HCG, SERUM QUALITATIVE NEGATIVE (NEGATIVE)
[2020-01-09 11:15] LABS: VENOUS HCO3 22.5 MEQ/L (23.0-27.0); VENOUS PARTIAL PRESSURE CO2 41.2 mmHg (38.0-50.0); VENOUS PARTIAL PRESSURE O2 86.7 mmHg (30.0-50.0); VENOUS PH 7.356 UNITS (7.330-7.430); VENOUS TOTAL CO2 23.8 MEQ/L (24.0-28.0)
[2020-01-09 11:16] LABS: VENOUS BASE EXCESS -2.8 (-2.0-2.0); VENOUS O2 SATURATION 95.9 % (60.0-80.0); VENOUS STANDARD HCO3 22.1 MEQ/L
== END 2019-10-24 19:45 | disposition home or self-care (01) ==
LOC: M ED 17:47
DX: E11.65 Type 2 diabetes mellitus with hyperglycemia (principal); N39.0 Urinary tract infection, site not specified; Z79.899 Other long term (current) drug therapy
CPT/HCPCS: 80053; 80307; 81000; 82803; 83605; 83690; 84703; 85027; 96361; 96374; 99284; G0480

== ENCOUNTER 2020-02-14 19:05 | Inpatient (IN) | payer OTHER ==
[~2020-02-14] VITALS: Ht 157.5 cm; Wt 49.1 kg
[2020-02-14] MEDS ORDERED: FERR140T3 (19:20)
[2020-02-14] MEDS ORDERED: NS 1,000 ML IV ONE (20:00)
[2020-02-14 20:18] LABS: BASO % 0.5 % (0.0-1.0); EOS # 0.1 10^3/uL (0.0-0.5); HEMATOCRIT 45.4 % (36.0-47.0); HEMOGLOBIN 14.9 g/dl (12.0-15.5); LYMPH # 1.8 10^3/uL (1.5-5.0); LYMPH % 33.4 % (24.0-44.0); MEAN CORPUSCULAR HEMOGLOBIN 26.6 pg (27.0-33.0); MEAN CORPUSCULAR HGB CONC 32.8 g/dl (32.0-36.5); MEAN CORPUSCULAR VOLUME 81.1 fl (80.0-96.0); MONO # 0.4 10^3/uL (0.0-0.8); MONO % 7.7 % (0.0-5.0); NEUTROPHILS # 3.1 10^3/uL (1.5-8.5); NEUTROPHILS % 56.2 % (36.0-66.0); PLATELET COUNT, AUTOMATED 409 10^3/uL (150-450); WHITE BLOOD COUNT 5.5 10^3/uL (4.0-10.0)
[2020-02-14 20:39] LABS: HCG, SERUM QUALITATIVE NEGATIVE (NEGATIVE)
[2020-02-14 21:03] LABS: ACETONE/KETONE 41.32 MG/DL (<2.81); ALBUMIN 3.5 GM/DL (3.2-5.2); ALT/SGPT 29 U/L (12-78); BILIRUBIN,DIRECT 0.1 MG/DL (0.0-0.2); BILIRUBIN,TOTAL 0.3 MG/DL (0.2-1.0); BLOOD UREA NITROGEN 11 MG/DL (7-18); CALCIUM LEVEL 9.2 MG/DL (8.5-10.1); CARBON DIOXIDE LEVEL 20 MEQ/L (21-32); CHLORIDE LEVEL 96 MEQ/L (98-107); CREATININE FOR GFR 0.96 MG/DL (0.55-1.30); GLOMERULAR FILTRATION RATE > 60.0 (>60); GLUCOSE, FASTING 617 MG/DL (70-100); LIPASE 73 U/L (73-393); POTASSIUM SERUM 5.1 MEQ/L (3.5-5.1); SODIUM LEVEL 127 MEQ/L (136-145); TOTAL PROTEIN 7.4 GM/DL (6.4-8.2)
[2020-02-14] MEDS ORDERED: HumuLIN R (REGULAR) INSULIN (NovoLIN R) **100U/ML** PER UNIT IV ONE (21:30)
[2020-02-14 21:51] LABS: VENOUS BASE EXCESS -8.6 (-2.0-2.0); VENOUS HCO3 16.4 MEQ/L (23.0-27.0); VENOUS O2 SATURATION 98.7 % (60.0-80.0); VENOUS PARTIAL PRESSURE CO2 32.7 mmHg (38.0-50.0); VENOUS PH 7.317 UNITS (7.330-7.430); VENOUS STANDARD HCO3 17.8 MEQ/L; VENOUS TOTAL CO2 17.4 MEQ/L (24.0-28.0)
[2020-02-14] MEDS ORDERED: NS 1,000 ML IV SCH (23:15)
[2020-02-14] MEDS ORDERED: ACETAMINOPHEN TAB 650MG DOSE (2X325MG) PO PRN (23:15)
[2020-02-14] MEDS ORDERED: VITA200044 PO (23:24)
[2020-02-14] MEDS ORDERED: FERR140T3 PO (23:24)
--- NOTE | 2020-02-14 23:29 | HPEPDOC ---
[facility] Medical History & Physical Date of Admission Feb 14, 2020 Date of Service: Feb 14, 2020 History and Physical Chief complaint: Who presented to the ER with complaints of nausea and vomiting History of present illness: Patient is a 20-year-old female with a past medical history of insulin-dependent diabetes mellitus type 2, who presented to the emergency room after she was experiencing nausea and vomiting for the last 2 days. Patient reports that she is experiencing 3-4 episodes of vomiting per day. Describes the vomitus as watery/containing fluid contents without any blood. Patient denies any abdominal pain, constipation, diarrhea, or urinary discomfort. Denies any chest pain, shortness of breath or palpitations. Patient does report lightheadedness. Patient reports a fever of 100.4F yesterday with associated chills. Patient reports that she has been compliant with her insulin been noncompliant with her diet. Patient reports her appetite has been poor over the last 2 days is unsure of any changes in her weight. Past Medical History: IDDM1 Past Surgical History: Appendectomy at the age of 6 Was supposed to have a tonsillectomy that was canceled because of elevated blood glucose 1 year ago Allergies: See below Medications: See below Family History: - No reported past medical history of her family Social History: - Denies the use of tobacco; reports social alcohol use; reports occasional marijuana use - Denies recent travel or sick contacts - Lives with - Occupation; patient reports that she used to work at [employer], but is currently unemployed Review of Systems: 10 point review of systems complete, all negative otherwise stated in HPI Physical exam: - Vitals: BP [128/79], HR [110], RR [16], Sat [99%RA], Temp [97.6F] - General: Lying in bed, No acute distress, Speaking in full sentences, AAOx3 - HEENT: NC, AT, PERRLA - CVS: Tachycardic, +S1S2, - Murmurs / rubs / gallops - Lungs: Fair air entry bilaterally, No appreciable wheezing / rales / rhonchi - Abdomen: Soft, Non-distended, Non-tender - Extremities: No lower extremity edema, No calf tenderness - Neuro: No focal motor or sensory deficit - Skin: No visible rashes Labs: See below Imaging: See below EKG: See below Assessment and Plan: Elevated blood glucose / Mild acidosis - possibly 2/2 early DKA / starvation ketosis - Patient presented to the ER with complaints of nausea and vomiting for the last 2 days - Reports lightheadedness - Patient is hemodynamically stable, although Tachycardic / Afebrile - Blood glucose in the 600s, bicarbonate 20, pH of 7.317, elevated beta hydroxybutyrate - UA with questionable infection; urine culture pending - Will repeat CMP / BHB - Will check troponin / EKG / CXR - Will continue IV fluid hydration - Will start insulin drip if repeat CMP / BHB continues to show evidence of DKA, otherwise will resume home regimen Insulin-dependent diabetes mellitus type 1 - c/w Atorvastatin - Will hold Lisinopril (re: elevated Cr) Pseudohyponatremia - Corrected sodium of 139 Elevated creatinine - Baseline Cr of 0.4-0.7 - Cr on admission of 0.9 - Will avoid nephrotoxic medications - Will c/w IV fluid hydration DVT prophylaxis - Will start TEDs/Sequentials Vital Signs Vital Signs Date Time Temp Pulse Resp B/P (MAP) Pulse Ox O2 Delivery O2 Flow Rate FiO2 02/14/20 23:26 98.0 98 24 103/73 (83) 98 Room Air Laboratory Data Labs 24H Laboratory Tests 2 02/14/20 19:44: Immature Granulocyte % (Auto) 0.2, Neutrophils (%) (Auto) 56.2, Lymphocytes (%) (Auto) 33.4, Monocytes (%) (Auto) 7.7H, Eosinophils (%) (Auto) 2.0, Basophils (%) (Auto) 0.5, Neutrophils # (Auto) 3.1, Lymphocytes # (Auto) 1.8, Monocytes # (Auto) 0.4, Eosinophils # (Auto) 0.1, Basophils # (Auto) 0.0, Nucleated Red Blood Cells % (auto) 0.0, Anion Gap 11, Glomerular Filtration Rate > 60.0, Calcium Level 9.2, Total Bilirubin 0.3, Direct Bilirubin 0.1, Aspartate Amino Transf (AST/SGOT) 18, Alanine Aminotransferase (ALT/SGPT) 29, Alkaline Phosphatase 130H, Total Protein 7.4, Albumin 3.5, Albumin/Globulin Ratio 0.9L, Lipase 73, Human Chorionic Gonadotropin, Qual NEGATIVE, B-Hydroxybutyrate 41.32H 02/14/20 21:46: Blood Gas Bicarbonate Standard 17.8, Venous Blood pH 7.317L, Venous Blood Partial Pressure CO2 32.7L, Venous Blood Partial Pressure O2 128.0H, Venous Blood Total Carbon Dioxide 17.4L, Venous Blood HCO3 16.4L, Venous Blood Oxygen Saturation 98.7H, Venous Blood Base Excess -8.6L 02/14/20 22:04: Urine Color YELLOW, Urine Appearance CLOUDYH, Urine pH 6.0, Urine Specific [place] 1.026, Urine Protein NEGATIVE, Urine Glucose (UA) 3+H, Urine Ketones 1+H , Urine Blood NEGATIVE, Urine Nitrite POSITIVEH, Urine Bilirubin NEGATIVE, Urine Urobilinogen 0.2, Urine Leukocyte Esterase NEGATIVE, Urine WBC (Auto) 6H, Urine RBC (Auto) 1, Urine Hyaline Casts (Auto) 0, Urine Bacteria (Auto) 1+H, Urine Squamous Epithelial Cells 3, Urine Sperm (Auto) 02/14/20 22:47: Bedside Glucose (Misc Panel) 402H 02/14/20 23:19: 02/14/20 23:21: CBC/BMP Laboratory Tests 02/14/20 19:44 Microbiology Microbiology 02/14/20 Urine Culture, Received Pending Home Medications Scheduled Atorvastatin Calcium (Atorvastatin Calcium) 10 Mg Tablet, 10 MG PO DAILY Cholecalciferol (Vitamin D3) (Vitamin D3) 50 Mcg Capsule, 50 MCG PO DAILY Ferrous Sulfate (Slow Release Iron) 140 Mg Tablet.er, 140 MG PO DAILY Insulin Degludec (Tresiba Flextouch U-100) 100 Unit/1 Ml Insuln.pen, 30 UNIT SC DAILY Insulin Human Lispro (Humalog) 1 Units/0.01 Ml Inj, 1 DOSE SC AC SLIDING SCALE PER DEANNE (ALSO USES UNITS PER GRAM OF CARB DOSING THROUGHOUT THE DAY) Lisinopril (Lisinopril) 10 Mg Tab, 10 MG PO DAILY Scheduled PRN Glucagon,Human Recombinant (Glucagon Emergency Kit) 1 Mg Kit, 1 MG IM ASDIRECTED PRN for LOW BLOOD SUGAR Allergies Coded Allergies: Pistachio (Verified Allergy, Unknown, 04/25/19) HOSSEIN KUNZ MD Feb 14, 2020 23:29
[2020-02-14] MEDS ORDERED: ONDANSETRON 4MG/2ML VIAL IV PRN (23:30)
[2020-02-15] VITALS (12 sets, daily range): BP systolic 100–119; BP diastolic 61–83
[2020-02-15 00:02] LABS: ACETONE/KETONE 24.08 MG/DL (<2.81); ALBUMIN 3.2 GM/DL (3.2-5.2); ALT/SGPT 26 U/L (12-78); BILIRUBIN,TOTAL 0.2 MG/DL (0.2-1.0); BLOOD UREA NITROGEN 9 MG/DL (7-18); CALCIUM LEVEL 8.7 MG/DL (8.5-10.1); CARBON DIOXIDE LEVEL 17 MEQ/L (21-32); CHLORIDE LEVEL 103 MEQ/L (98-107); CK-MB VALUE MASS < 1.0 NG/ML (<3.6); CPK CREATINE PHOSPHOKINASE 28 U/L (26-192); GLOMERULAR FILTRATION RATE > 60.0 (>60); GLUCOSE, FASTING 361 MG/DL (70-100); MAGNESIUM LEVEL 2.1 MG/DL (1.8-2.4); MB/CK RELATIVE INDEX 3.57 (< OR =4); POTASSIUM SERUM 4.3 MEQ/L (3.5-5.1); SODIUM LEVEL 131 MEQ/L (136-145); TOTAL PROTEIN 6.8 GM/DL (6.4-8.2); TROPONIN I < 0.02 NG/ML (< 0.10)
[2020-02-15] MEDS ORDERED: HumuLIN R (REGULAR) INSULIN (NovoLIN R) **100U/ML** PER UNIT IV STA (00:09)
[2020-02-15] MEDS ORDERED: POTASSIUM CHLORIDE 10 MEQ SR TABLET PO ONE ×2 (00:15→10:00)
--- NOTE | 2020-02-15 01:02 | REPVR ---
PROCEDURE INFORMATION: Exam: XR Chest, 1 View Exam date and time: 02/14/2020 11:59 PM Age: 20 years old Clinical indication: Fever at home TECHNIQUE: Imaging protocol: XR of the chest Views: 1 view. COMPARISON: CR Chest, 2 view PA, Lat 06/28/2019 9:03 PM FINDINGS: Lungs: Unremarkable. No consolidation. No pulmonary edema. Pleural space: Unremarkable. No pleural effusion or pneumothorax is identified. Heart/Mediastinum: Unremarkable. No cardiomegaly. Bones/joints: Unremarkable. Soft tissues: Incidental note is made of bilateral nipple piercings. IMPRESSION: No acute findings. Electronically signed by: Malik Limon On 02/15/2020 01:03:07 AM
[2020-02-15 02:19] LABS: VENOUS HCO3 16.3 MEQ/L (23.0-27.0); VENOUS O2 SATURATION 99.2 % (60.0-80.0); VENOUS PARTIAL PRESSURE CO2 27.6 mmHg (38.0-50.0); VENOUS PARTIAL PRESSURE O2 149.4 mmHg (30.0-50.0); VENOUS STANDARD HCO3 18.9 MEQ/L; VENOUS TOTAL CO2 17.2 MEQ/L (24.0-28.0)
[2020-02-15 02:52] LABS: ACETONE/KETONE 41.67 MG/DL (<2.81); BLOOD UREA NITROGEN 11 MG/DL (7-18); CALCIUM LEVEL 8.5 MG/DL (8.5-10.1); CARBON DIOXIDE LEVEL 18 MEQ/L (21-32); CHLORIDE LEVEL 105 MEQ/L (98-107); CREATININE FOR GFR 0.67 MG/DL (0.55-1.30); GLOMERULAR FILTRATION RATE > 60.0 (>60); GLUCOSE, FASTING 311 MG/DL (70-100); PHOSPHORUS LEVEL 2.1 MG/DL (2.5-4.9); SODIUM LEVEL 134 MEQ/L (136-145)
[2020-02-15] MEDS ORDERED: INSULIN REGULAR IN 0.9 % NACL 100 UNIT in IV 1 EA IV SCH ×4 (03:30→04:14)
[2020-02-15] MEDS ORDERED: INSULIN IV RATE CHANGE DOCUMENTATION ML/HR XX SCH (03:30)
[2020-02-15 05:23] LABS: HEMOGLOBIN A1c 13.4 %
[2020-02-15] MEDS: INSULIN IV RATE CHANGE DOCUMENTATION ML/HR XX SCH ×5 (05:39→09:56)
[2020-02-15 06:08] LABS: VENOUS BASE EXCESS -8.9 (-2.0-2.0); VENOUS O2 SATURATION 99.4 % (60.0-80.0); VENOUS PARTIAL PRESSURE CO2 31.9 mmHg (38.0-50.0); VENOUS PARTIAL PRESSURE O2 209.6 mmHg (30.0-50.0); VENOUS PH 7.318 UNITS (7.330-7.430); VENOUS STANDARD HCO3 17.5 MEQ/L
[2020-02-15] MEDS ORDERED: D5W/0.9% SODIUM CHLORIDE 1,000 ML IV SCH (06:15)
[2020-02-15 06:36] LABS: ACETONE/KETONE 34.23 MG/DL (<2.81); PHOSPHORUS LEVEL 1.3 MG/DL (2.5-4.9)
[2020-02-15 08:17] LABS: BASO # 0.1 10^3/uL (0.0-0.2); BASO % 0.8 % (0.0-1.0); EOS # 0.2 10^3/uL (0.0-0.5); EOS % 2.4 % (0.0-3.0); HEMATOCRIT 42.6 % (36.0-47.0); HEMOGLOBIN 14.1 g/dl (12.0-15.5); LYMPH # 2.4 10^3/uL (1.5-5.0); LYMPH % 38.5 % (24.0-44.0); MEAN CORPUSCULAR HGB CONC 33.1 g/dl (32.0-36.5); MEAN CORPUSCULAR VOLUME 81.5 fl (80.0-96.0); MONO # 0.5 10^3/uL (0.0-0.8); MONO % 7.3 % (0.0-5.0); NEUTROPHILS # 3.2 10^3/uL (1.5-8.5); NEUTROPHILS % 50.7 % (36.0-66.0); PLATELET COUNT, AUTOMATED 369 10^3/uL (150-450); RED BLOOD COUNT 5.23 10^6/uL (4.00-5.40); WHITE BLOOD COUNT 6.3 10^3/uL (4.0-10.0)
[2020-02-15 08:46] LABS: ALT/SGPT 23 U/L (12-78); BILIRUBIN,TOTAL 0.3 MG/DL (0.2-1.0); BLOOD UREA NITROGEN 8 MG/DL (7-18); CALCIUM LEVEL 8.4 MG/DL (8.5-10.1); CARBON DIOXIDE LEVEL 21 MEQ/L (21-32); CHLORIDE LEVEL 112 MEQ/L (98-107); CREATININE FOR GFR 0.57 MG/DL (0.55-1.30); GLOMERULAR FILTRATION RATE > 60.0 (>60); GLUCOSE, FASTING 154 MG/DL (70-100); MAGNESIUM LEVEL 1.8 MG/DL (1.8-2.4); PHOSPHORUS LEVEL 1.4 MG/DL (2.5-4.9); POTASSIUM SERUM 3.3 MEQ/L (3.5-5.1); SODIUM LEVEL 140 MEQ/L (136-145); TOTAL PROTEIN 6.6 GM/DL (6.4-8.2)
[2020-02-15] MEDS ORDERED: FERROUS SULFATE 300MG/5ML UDC LIQUID PO SCH (09:00)
[2020-02-15] MEDS ORDERED: LEVEMIR (INSULIN DETEMIR) 1 UNITS/0.01ML SC SCH (09:00)
[2020-02-15] MEDS ORDERED: VITAMIN D 1,000 INTERNATIONAL UNITS TABLET PO SCH (09:00)
[2020-02-15] MEDS ORDERED: ATORVASTATIN 10 MG TAB PO SCH (09:00)
--- NOTE | 2020-02-15 09:04 | ECGEPIP ---
[facility] Test Date: 2020-02-15 Pat Name: JOZEF ALONZO Department: Room: [place] [address] Gender: Female [employer]: : 2000 Requested By: HOSSEIN KUNZ Order Number: [id number] Reading MD: Yahir Sesay Measurements Intervals [place] Rate: 79 P: 55 OR: 154 QRS: 78 QRSD: 78 T: 46 QT: 391 QTc: 451 Interpretive Statements SINUS RHYTHM Poor R wave progression LOW QRS VOLTAGE IN EXTREMITY LEADS Decreased heart rate compared with 06/29/2019. Electronically Signed on 02-15-2020 9:03:56 EST by Yahir Sesay
[2020-02-15] MEDS ORDERED: GLUCOSE 4GM CHEW TABLET PO PRN (09:45)
[2020-02-15] MEDS ORDERED: GLUCAGON INJ 1MG VIAL SC PRN (09:45)
--- NOTE | 2020-02-15 09:55 | IPNPDOC ---
Date Seen The patient was seen on 02/15/20. Progress Note SUBJECTIVE: Patient was seen and examined at bedside this morning. She continues to be on an insulin drip. She states that she has no fevers or chills, nausea, vomiting or diarrhea. She denies any dysuria or lower abdominal pain. She states that she takes to show 30 units daily as well as a sliding scale between 1-8 units. She admits to having poor dietary compliance drinking lots of sodas. OBJECTIVE PHYSICAL EXAMINATION: VITAL SIGNS: please see below General: Thin, comfortable in bed HEENT: PERRLA, EOMI, sclerae clear Neck: supple, normal ROM, no JVD Respiratory: lungs CTAB, no wheeze, no rales, no crackles CVS: RRR, normal S1, S2, no murmurs Abdo: soft, no masses, no hepatosplenomegaly, BS+, no rebound tenderness Extremities: no edema, pulses 2+ MSK: no joint deformities, normal ROM Neuro: no focal neuro deficits, moving all 4 extremities, CN2-12 intact. Strength 5/5 in all 4 extremities. No nystagmus. Psych: calm, cooperative, AAO x 3 LABORATORY DATA, IMAGING STUDIES, MICROBIOLOGY: Please see below. DVT prophylaxis ordered?: TEDs/SCDs ASSESSMENT AND PLAN: 20-year-old female with a history of type 1 diabetes, frequent hospitalizations for diabetic ketoacidosis secondary to poor dietary compliance. Admitted to ICU for management of DKA with IV insulin drip. PROBLEMS: #DKA: Nausea, vomiting have resolved. Vital signs within stable within normal limits. Blood sugars 150s and Accu-Chek. PH is above 7.3. Anion gap has closed. On insulin drip. Administer 30 units subcutaneous Levemir this morning. Discontinue insulin drip after an hour and a half. Fingersticks every 1 hour. Consistent carbohydrate diet ordered. Diabetic teaching requested. #UTI: UA+, nitrite +, pyuria. Will treat, possible contributor to DKA. Ucx pending. Ceftriaxone while inpatient. #Hypokalemia: Replace, repeat BMP every 4 hours. #Hypophosphatemia: Replace, repeat BMP in 4 hours. #Pseudohyponatremia: Resolved DVT prophylaxis: Teds/SCDs VS, I&O, 24H, Fishbone Vital Signs/I&O Vital Signs Date Time Temp Pulse Resp B/P (MAP) Pulse Ox O2 Delivery O2 Flow Rate FiO2 02/15/20 05:00 78 12 112/73 (86) 100 Room Air 02/15/20 04:00 97.8 I&O- Last 24 Hours up to 6 AM 02/15/20 05:59 Intake Total 1094 ml Output Total 0 ml Balance 1094 ml Laboratory Data 24H LABS Laboratory Tests 2 02/14/20 19:44: Immature Granulocyte % (Auto) 0.2, Neutrophils (%) (Auto) 56.2, Lymphocytes (%) (Auto) 33.4, Monocytes (%) (Auto) 7.7H, Eosinophils (%) (Auto) 2.0, Basophils (%) (Auto) 0.5, Neutrophils # (Auto) 3.1, Lymphocytes # (Auto) 1.8, Monocytes # (Auto) 0.4, Eosinophils # (Auto) 0.1, Basophils # (Auto) 0.0, Nucleated Red Blood Cells % (auto) 0.0, Anion Gap 11, Glomerular Filtration Rate > 60.0, Estimated Mean Plasma Glucose 338H, Hemoglobin A1c 13.4, Calcium Level 9.2, Total Bilirubin 0.3, Direct Bilirubin 0.1, Aspartate Amino Transf (AST/SGOT) 18, Alanine Aminotransferase (ALT/SGPT) 29, Alkaline Phosphatase 130H, Total Protein 7.4, Albumin 3.5, Albumin/Globulin Ratio 0.9L, Lipase 73, Human Chorionic Gonadotropin, Qual NEGATIVE, B-Hydroxybutyrate 41.32H 02/14/20 21:46: Blood Gas Bicarbonate Standard 17.8, Venous Blood pH 7.317L, Venous Blood Partial Pressure CO2 32.7L, Venous Blood Partial Pressure O2 128.0H, Venous Blood Total Carbon Dioxide 17.4L, Venous Blood HCO3 16.4L, Venous Blood Oxygen Saturation 98.7H, Venous Blood Base Excess -8.6L 02/14/20 22:04: Urine Color YELLOW, Urine Appearance CLOUDYH, Urine pH 6.0, Urine Specific [place] 1.026, Urine Protein NEGATIVE, Urine Glucose (UA) 3+H, Urine Ketones 1+H, Urine Blood NEGATIVE, Urine Nitrite POSITIVEH, Urine Bilirubin NEGATIVE, Urine Urobilinogen 0.2, Urine Leukocyte Esterase NEGATIVE, Urine WBC (Auto) 6H, Urine RBC (Auto) 1, Urine Hyaline Casts (Auto) 0, Urine Bacteria (Auto) 1+H, Urine Squamous Epithelial Cells 3, Urine Sperm (Auto) 02/14/20 22:47: Bedside Glucose (Misc Panel) 402H 02/14/20 23:19: Coronavirus (COVID-19)(PCR) NEGATIVE, Influenza Type A (RT-PCR) NEGATIVE, Inf luenza Type B (RT-PCR) NEGATIVE, Respiratory Syncytial Virus (PCR) NEGATIVE 02/14/20 23:21: Anion Gap 11, Glomerular Filtration Rate > 60.0, Calcium Level 8.7, Magnesium Level 2.1, Total Bilirubin 0.2, Aspartate Amino Transf (AST/SGOT) 14, Alanine Aminotransferase (ALT/SGPT) 26, Alkaline Phosphatase 118H, Total Creatine Kinase 28, Creatine Kinase MB < 1.0, Creatine Kinase MB Relative Index 3.57, Troponin I < 0.02, Total Protein 6.8, Albumin 3.2, Albumin/Globulin Ratio 0.9L, B- Hydroxybutyrate 24.08H 02/14/20 23:42: Lactic Acid Level 1.0 02/15/20 01:43: Bedside Glucose (Misc Panel) 285H 02/15/20 02:13: Blood Gas Bicarbonate Standard 18.9, Venous Blood pH 7.390, Venous Blood Partial Pressure CO2 27.6L, Venous Blood Partial Pressure O2 149.4H, Venous Blood Total Carbon Dioxide 17.2L, Venous Blood HCO3 16.3L, Venous Blood Oxygen Saturation 99.2H, Venous Blood Base Excess -7.0L, Anion Gap 11, Glomerular Filtration Rate > 60.0, Calcium Level 8.5, Phosphorus Level 2.1L, Magnesium Level 2.0, B- Hydroxybutyrate 41.67H 02/15/20 04:26: Bedside Glucose (Misc Panel) 284H 02/15/20 05:35: Bedside Glucose (Misc Panel) 219H 02/15/20 05:59: Blood Gas Bicarbonate Standard 17.5, Venous Blood pH 7.318L, Venous Blood Partial Pressure CO2 31.9L, Venous Blood Partial Pressure O2 209.6H, Venous Blood Total Carbon Dioxide 17.0L, Venous Blood HCO3 16.0L, Venous Blood Oxygen Saturation 99.4H, Venous Blood Base Excess -8.9L, Phosphorus Level 1.3#L, B-Hydroxybutyrate 34.23H 02/15/20 06:34: Bedside Glucose (Misc Panel) 145H 02/15/20 07:31: Bedside Glucose (Misc Panel) 152H 02/15/20 07:59: Immature Granulocyte % (Auto) 0.3, Neutrophils (%) (Auto) 50.7, Lymphocytes (%) (Auto) 38.5, Monocytes (%) (Auto) 7.3H, Eosinophils (%) (Auto) 2.4, Basophils (%) (Auto) 0.8, Neutrophils # (Auto) 3.2, Lymphocytes # (Auto) 2.4, Monocytes # (Auto) 0.5, Eosinophils # (Auto) 0.2, Basophils # (Auto) 0.1, Nucleated Red Blood Cells % (auto) 0.0, Anion Gap 7L, Glomerular Filtration Rate > 60.0, Calcium Level 8.4L, Phosphorus Level 1.4L, Magnesium Level 1.8, Total Bilirubin 0.3, Aspartate Amino Transf (AST/SGOT) 18, Alanine Aminotransferase (ALT/SGPT) 23, Alkaline Phosphatase 100, Total Protein 6.6, Albumin 3.0L, Albumin/Globulin Ratio 0.8L 02/15/20 08:27: Bedside Glucose (Misc Panel) 135H CBC/BMP Laboratory Tests 02/14/20 19:44 02/14/20 23:21 02/15/20 02:13 02/15/20 07:59 Microbiology Microbiology 02/14/20 Urine Culture, Received Pending ZUHAIR DELGADO MD Feb 15, 2020 09:54
[2020-02-15] MEDS ORDERED: POTASSIUM PHOSPHATE INJ 30 MMOL in D5W 500 ML IV ONE (10:00)
[2020-02-15] MEDS ORDERED: cefTRIAXone SOD 1 GM in D5W MINI-BAG PLUS 50 ML IV SCH (11:00)
[2020-02-15] MEDS ORDERED: HumaLOG INSULIN (NovoLOG) PER UNIT SC SCH ×2 (12:00→21:00)
[2020-02-15 12:49] LABS: BLOOD UREA NITROGEN 5 MG/DL (7-18); CALCIUM LEVEL 8.2 MG/DL (8.5-10.1); CARBON DIOXIDE LEVEL 19 MEQ/L (21-32); CHLORIDE LEVEL 109 MEQ/L (98-107); CREATININE FOR GFR 0.68 MG/DL (0.55-1.30); GLOMERULAR FILTRATION RATE > 60.0 (>60); GLUCOSE, FASTING 197 MG/DL (70-100); MAGNESIUM LEVEL 1.8 MG/DL (1.8-2.4); PHOSPHORUS LEVEL 3.2 MG/DL (2.5-4.9); POTASSIUM SERUM 4.4 MEQ/L (3.5-5.1); SODIUM LEVEL 135 MEQ/L (136-145)
[2020-02-15] MEDS ORDERED: KCL 10MEQ/100ML SWI (KRUN) 10 MEQ in IV 1 EA IV SCH (15:00)
[2020-02-15] MEDS ORDERED: TRES1INJ2 SC (15:16)
[2020-02-15] MEDS ORDERED: INSUHUMDS SC (15:16)
[2020-02-15] MEDS ORDERED: SULF1TAB93 PO (15:16)
--- NOTE | 2020-02-15 15:30 | DS.PDOC ---
Discharge Summary General Date of Admission Feb 15, 2020 at 00:09 Date of Discharge 02/15/20 Discharge Summary PROCEDURES PERFORMED DURING STAY: [None]. ADMITTING DIAGNOSES: DKA Type 1 DM Pseudohyponatremia Elevated Cr DISCHARGE DIAGNOSES: DKA UTI Hypokalemia' Hypophosphatemia Type 1 DM Pseudohyponatremia Elevated Cr COMPLICATIONS/CHIEF COMPLAINT: Hyperglycemia Due To Type 1 Diabetes Mellitus. HISTORY OF PRESENT ILLNESS: Patient is a 20-year-old female with a past medical history of insul in-dependent diabetes mellitus type 2, who presented to the emergency room after she was experiencing nausea and vomiting for the last 2 days. Patient reports that she is experiencing 3-4 episodes of vomiting per day. Describes the vomitus as watery/containing fluid contents without any blood. Patient denies any abdominal pain, constipation, diarrhea, or urinary discomfort. Denies any chest pain, shortness of breath or palpitations. Patient does report lightheadedness. Patient reports a fever of 100.4F yesterday with associated chills. Patient reports that she has been compliant with her insulin been noncompliant with her diet. Patient reports her appetite has been poor over the last 2 days is unsure of any changes in her weight. HOSPITAL COURSE: Patient was admitted to ICU with insulin drip. She received subcutaneous insulin once her anion gap closed and her pH was above 7.3. She was transitioned to oral insistent carbohydrate diet which she tolerated well. Insulin drip was discontinued 1 hour and a half after her subcutaneous insulin was administered. Patient denied fevers, chills, nausea, vomiting, diarrhea, although she did describe mild dysuria. UA was suggestive of infection and therefore she was given one dose of Rocephin and given a prescription for Bactrim upon discharge. Patient has appropriate follow-up with an nursing agency manager. She does not have a primary care doctor and was therefore assisted with this upon discharge. She was instructed to continue her home insulin regimen which consisted of 30 units of subcutaneous tissue as well as insulin sliding scale. She seems to be well educated on the matter and agrees that it was likely a lapse in compliance with diet as well as possibly urinary tract infection, which led to development of DKA. During admission, the patient developed several laboratory abnormalities including hypokalemia, hypophosphatemia which were corrected appropriately. DISCHARGE MEDICATIONS: Please see below. ALLERGIES: Please see below. PHYSICAL EXAMINATION ON DISCHARGE: VITAL SIGNS: please see below General: Thin, comfortable in bed HEENT: PERRLA, EOMI, sclerae clear Neck: supple, normal ROM, no JVD Respiratory: lungs CTAB, no wheeze, no rales, no crackles CVS: RRR, normal S1, S2, no murmurs Abdo: soft, no masses, no hepatosplenomegaly, BS+, no rebound tenderness Extremities: no edema, pulses 2+ MSK: no joint deformities, normal ROM Neuro: no focal neuro deficits, moving all 4 extremities, CN2-12 intact. Strength 5/5 in all 4 extremities. No nystagmus. Psych: calm, cooperative, AAO x 3 LABORATORY DATA: Please see below. IMAGING: CXR (02/14/20): FINDINGS: Lungs: Unremarkable. No consolidation. No pulmonary edema. Pleural space: Unremarkable. No pleural effusion or pneumothorax is identified. Heart/Mediastinum: Unremarkable. No cardiomegaly. Bones/joints: Unremarkable. Soft tissues: Incidental note is made of bilateral nipple piercings. IMPRESSION: No acute findings. PROGNOSIS: good ACTIVITY: As tolerated DIET: consistent carbohydrate DISCHARGE PLAN: f/u with PCP, nursing agency manager. C/w home regimen of insulin, 30 units tujeo SC daily, sliding scale DISPOSITION: . DISCHARGE INSTRUCTIONS: . Please follow-up with your primary care doctor within 3-5 days . Please follow-up with nursing agency manager within 1-2 weeks . Please taking medications as prescribed. . If you develop bleeding, chest pain, shortness of breath, seizures, nausea, fevers, or otherwise worsening of your symptoms, please call 911 or return to the nearest emergency room ITEMS TO FOLLOWUP ON ON OUTPATIENT: 1. blood sugars. 2. nursing agency manager appointment 3. Follow up on final urine culture DISCHARGE CONDITION: Stable TIME SPENT ON DISCHARGE: 35 minutes Vital Signs/I&Os Vital Signs Date Time Temp Pulse Resp B/P (MAP) Pulse Ox O2 Delivery O2 Flow Rate FiO2 02/15/20 14:00 94 113/68 (83) 02/15/20 12:00 98.0 16 100 Room Air I&O- Last 24 Hours up to 6 AM 02/15/20 06:00 Intake Total 1094 ml Output Total 800 ml Balance 294 ml Laboratory Data Labs 24H Laboratory Tests 2 02/14/20 19:14: Bedside Glucose (Misc Panel) 547*H 02/14/20 19:44: Immature Granulocyte % (Auto) 0.2, Neutrophils (%) (Auto) 56.2, Lymphocytes (%) (Auto) 33.4, Monocytes (%) (Auto) 7.7H, Eosinophils (%) (Auto) 2.0, Basophils (%) (Auto) 0.5, Neutrophils # (Auto) 3.1, Lymphocytes # (Auto) 1.8, Monocytes # (Auto) 0.4, Eosinophils # (Auto) 0.1, Basophils # (Auto) 0.0, Nucleated Red Blood Cells % (auto) 0.0, Anion Gap 11, Glomerular Filtration Rate > 60.0, Estimated Mean Plasma Glucose 338H, Hemoglobin A1c 13.4, Calcium Level 9.2, Total Bilirubin 0.3, Direct Bilirubin 0.1, Aspartate Amino Transf (AST/SGOT) 18, Alanine Aminotransferase (ALT/SGPT) 29, Alkaline Phosphatase 130H, Total Protein 7.4, Albumin 3.5, Albumin/Globulin Ratio 0.9L, Lipase 73, Human Chorionic Gonadotropin, Qual NEGATIVE, B-Hydroxybutyrate 41.32H 02/14/20 21:46: Blood Gas Bicarbonate Standard 17.8, Venous Blood pH 7.317L, Venous Blood Partial Pressure CO2 32.7L, Venous Blood Partial Pressure O2 128.0H, Venous Blood Total Carbon Dioxide 17.4L, Venous Blood HCO3 16.4L, Venous Blood Oxygen Saturation 98.7H, Venous Blood Base Excess -8.6L 02/14/20 22:04: Urine Color YELLOW, Urine Appearance CLOUDYH, Urine pH 6.0, Urine Specific [place] 1.026, Urine Protein NEGATIVE, Urine Glucose (UA) 3+H, Urine Ketones 1+H, Urine Blood NEGATIVE, Urine Nitrite POSITIVEH, Urine Bilirubin NEGATIVE, Urine Urobilinogen 0.2, Urine Leukocyte Esterase NEGATIVE, Urine WBC (Auto) 6H, Urine RBC (Auto) 1, Urine Hyaline Casts (Auto) 0, Urine Bacteria (Auto) 1+H, Urine Squamous Epithelial Cells 3, Urine Sperm (Auto) 02/14/20 22:47: Bedside Glucose (Misc Panel) 402H 02/14/20 23:19: Coronavirus (COVID-19)(PCR) NEGATIVE, Influenza Type A (RT-PCR) NEGATIVE, Influenza Type B (RT-PCR) NEGATIVE, Respiratory Syncytial Virus (PCR) NEGATIVE 02/14/20 23:21: Anion Gap 11, Glomerular Filtration Rate > 60.0, Calcium Level 8.7, Magnesium Level 2.1, Total Bilirubin 0.2, Aspartate Amino Transf (AST/SGOT) 14, Alanine Aminotransferase (ALT/SGPT) 26, Alkaline Phosphatase 118H, Total Creatine Kinase 28, Creatine Kinase MB < 1.0, Creatine Kinase MB Relative Index 3.57, Troponin I < 0.02, Total Protein 6.8, Albumin 3.2, Albumin/Globulin Ratio 0.9L, Procalcitonin <0.05, B-Hydroxybutyrate 24.08H 02/14/20 23:42: Lactic Acid Level 1.0 02/15/20 01:43: Bedside Glucose (Misc Panel) 285H 02/15/20 02:13: Blood Gas Bicarbonate Standard 18.9, Venous Blood pH 7.390, Venous Blood Partial Pressure CO2 27.6L, Venous Blood Partial Pressure O2 149.4H, Venous Blood Total Carbon Dioxide 17.2L, Venous Blood HCO3 16.3L, Venous Blood Oxygen Saturation 99.2H, Venous Blood Base Excess -7.0L, Anion Gap 11, Glomerular Filtration Rate > 60.0, Calcium Level 8.5, Phosphorus Level 2.1L, Magnesium Level 2.0, B- Hydroxybutyrate 41.67H 02/15/20 04:26: Bedside Glucose (Misc Panel) 284H 02/15/20 05:35: Bedside Glucose (Misc Panel) 219H 02/15/20 05:59: Blood Gas Bicarbonate Standard 17.5, Venous Blood pH 7.318L, Venous Blood Partial Pressure CO2 31.9L, Venous Blood Partial Pressure O2 209.6H, Venous Blood Total Carbon Dioxide 17.0L, Venous Blood HCO3 16.0L, Venous Blood Oxygen Saturation 99.4H, Venous Blood Base Excess -8.9L, Phosphorus Level 1.3#L, B- Hydroxybutyrate 34.23H 02/15/20 06:34: Bedside Glucose (Misc Panel) 145H 02/15/20 07:31: Bedside Glucose (Misc Panel) 152H 02/15/20 07:59: Phosphorus Level 1.4L, Immature Granulocyte % (Auto) 0.3, Neutrophils (%) (Auto) 50.7, Lymphocytes (%) (Auto) 38.5, Monocytes (%) (Auto) 7.3H, Eosinophils (%) (Auto) 2.4, Basophils (%) (Auto) 0.8, Neutrophils # (Auto) 3.2, Lymphocytes # (Auto) 2.4, Monocytes # (Auto) 0.5, Eosinophils # (Auto) 0.2, Basophils # (Auto) 0.1, Nucleated Red Blood Cells % (auto) 0.0, Anion Gap 7L, Glomerular Filtration Rate > 60.0, Calcium Level 8.4L, Magnesium Level 1.8, Total Bilirubin 0.3, Aspartate Amino Transf (AST/SGOT) 18, Alanine Aminotransferase (ALT/SGPT) 23, Alkaline Phosphatase 100, Total Protein 6.6, Albumin 3.0L, Albumin/Globulin Ratio 0.8L 02/15/20 08:27: Bedside Glucose (Misc Panel) 135H 02/15/20 09:39: Bedside Glucose (Misc Panel) 199H 02/15/20 10:40: Bedside Glucose (Misc Panel) 185H 02/15/20 12:09: Anion Gap 7L, Glomerular Filtration Rate > 60.0, Calcium Level 8.2L, Phosphorus Level 3.2#, Magnesium Level 1.8 02/15/20 12:19: Bedside Glucose (Misc Panel) 201H 02/15/20 15:08: Bedside Glucose (Misc Panel) 214H CBC/BMP Laboratory Tests 02/14/20 19:44 02/14/20 23:21 02/15/20 02:13 02/15/20 07:59 02/15/20 12:09 FSBS Laboratory Tests Test 02/14/20 19:14 02/14/20 22:47 02/15/20 01:43 02/15/20 04:26 Range/Units Bedside Glucose (Misc Panel) 547 402 285 284 70-105 MG/DL Test 02/15/20 05:35 02/15/20 06:34 02/15/20 07:31 02/15/20 08:27 Range/Units Bedside Glucose (Misc Panel) 219 145 152 135 70-105 MG/DL Test 02/15/20 09:39 02/15/20 10:40 02/15/20 12:19 02/15/20 15:08 Range/Units Bedside Glucose (Misc Panel) 199 185 201 214 70-105 MG/DL Microbiology Microbiology 02/14/20 Urine Culture, Received Pending Discharge Medications Scheduled Atorvastatin Calcium (Atorvastatin Calcium) 10 Mg Tablet, 10 MG PO DAILY, (Reported) Cholecalciferol (Vitamin D3) (Vitamin D3) 50 Mcg Capsule, 50 MCG PO DAILY, (Reported) Ferrous Sulfate (Slow Release Iron) 140 Mg Tablet.er, 140 MG PO DAILY, (Reported) Insulin Degludec (Tresiba Flextouch U-100) 100 Unit/1 Ml Insuln.pen, 30 UNIT SC DAILY Insulin Human Lispro (Humalog) 1 Units/0.01 Ml Inj, 1 DOSE SC AC SLIDING SCALE PER DEANNE (ALSO USES UNITS PER GRAM OF CARB DOSING THROUGHOUT THE DAY) Lisinopril (Lisinopril) 10 Mg Tab, 10 MG PO DAILY, (Reported) Sulfamethoxazole/Trimethoprim (Sulfamethoxazole-Tmp Ds Tablet) 1 Each Tablet, 1 TAB PO BID Scheduled PRN Glucagon,Human Recombinant (Glucagon Emergency Kit) 1 Mg Kit, 1 MG IM ASDIRECTED PRN for LOW BLOOD SUGAR, (Reported) Allergies Coded Allergies: Pistachio (Verified Allergy, Unknown, 04/25/19) ZUHAIR DELGADO MD Feb 15, 2020 15:30
== END 2020-02-15 16:04 | disposition home or self-care (01) | DRG 420 ==
LOC: M ED 19:05 → M ED INP 02-15 00:09 → ENRESERV 02-15 00:20 → M ICU 02-15 01:35 → M MSPAV 02-15 14:52
PROVIDERS: ADMIT Internal Medicine; ATTEND Internal Medicine
DX: E10.10 Type 1 diabetes mellitus with ketoacidosis without coma (principal); N39.0 Urinary tract infection, site not specified; Z79.899 Other long term (current) drug therapy; E87.6 Hypokalemia; E87.1 Hypo-osmolality and hyponatremia; E83.39 Other disorders of phosphorus metabolism; Z79.4 Long term (current) use of insulin; Z91.018 Allergy to other foods

== ENCOUNTER 2020-07-09 06:55 | Inpatient (IN) | payer OTHER ==
[~2020-07-09] VITALS: Ht 157.5 cm; Wt 53.2 kg
[~2020-07-09 06:55] MED LIST changes: +FERR140T3; +FERR140T3 PO; +LISI10TA22 PO; -LISI10TA4 PO; -PEG1POW PO; +POLY17PO18 PO; +SULF1TAB93 PO; +VITA200044 PO
[2020-07-09] MEDS ORDERED: ONDANSETRON 4MG/2ML VIAL IV ONE (07:20)
[2020-07-09] MEDS ORDERED: NS 1,000 ML IV ONE ×2 (07:20→09:20)
[2020-07-09] MEDS ORDERED: MORPHINE 2 MG/ML 1ML VIAL (J2270) IV PRN (08:50)
[2020-07-09 09:05] LABS: OSMOLALITY SERUM 307 MOSM/KG (275-295)
[2020-07-09 09:17] LABS: AMPHETAMINES LEVEL URINE NEGATIVE (NEGATIVE); BARBITURATES URINE NEGATIVE (NEGATIVE); BENZODIAZEPINES URINE NEGATIVE (NEGATIVE); CANNABINOIDS URINE NEGATIVE (NEGATIVE); COCAINE METABOLITE URINE NEGATIVE (NEGATIVE); METHADONE URINE NEGATIVE (NEGATIVE); OPIATES URINE NEGATIVE (NEGATIVE); PHENCYCLIDINE URINE NEGATIVE (NEGATIVE)
[2020-07-09] MEDS ORDERED: TRES1INJ2 SC (09:34)
[2020-07-09] MEDS ORDERED: INSUHUMDS SC (09:34)
[2020-07-09 09:45] LABS: BASO % 0.3 % (0.0-1.0); EOS % 0.1 % (0.0-3.0); HEMATOCRIT 42.5 % (36.0-47.0); HEMOGLOBIN 13.2 g/dl (12.0-15.5); LYMPH # 0.9 10^3/uL (1.5-5.0); LYMPH % 6.2 % (24.0-44.0); MEAN CORPUSCULAR HGB CONC 31.1 g/dl (32.0-36.5); MEAN CORPUSCULAR VOLUME 80.6 fl (80.0-96.0); MONO # 0.5 10^3/uL (0.0-0.8); MONO % 3.7 % (2.0-8.0); NEUTROPHILS # 12.2 10^3/uL (1.5-8.5); NEUTROPHILS % 89.3 % (36.0-66.0); PLATELET COUNT, AUTOMATED 469 10^3/uL (150-450); RED BLOOD COUNT 5.27 10^6/uL (4.00-5.40); WHITE BLOOD COUNT 13.6 10^3/uL (4.0-10.0)
[2020-07-09 09:48] LABS: ACETONE/KETONE > 46.00 MG/DL (<2.81); ALBUMIN 3.9 GM/DL (3.2-5.2); ALT/SGPT 18 U/L (12-78); BILIRUBIN,DIRECT < 0.1 MG/DL (0.0-0.2); BILIRUBIN,TOTAL 0.4 MG/DL (0.2-1.0); BLOOD UREA NITROGEN 10 MG/DL (7-18); CALCIUM LEVEL 9.5 MG/DL (8.5-10.1); CARBON DIOXIDE LEVEL 11 MEQ/L (21-32); CHLORIDE LEVEL 105 MEQ/L (98-107); CREATININE FOR GFR 0.85 MG/DL (0.55-1.30); GLOMERULAR FILTRATION RATE > 60.0 (>60); GLUCOSE, FASTING 419 MG/DL (70-100); LIPASE 68 U/L (73-393); POTASSIUM SERUM 4.4 MEQ/L (3.5-5.1); SODIUM LEVEL 137 MEQ/L (136-145)
--- NOTE | 2020-07-09 09:53 | REP ---
INDICATION: dka COMPARISON: 02/14/2020 TECHNIQUE: Portable AP view of the chest FINDINGS: The mediastinum and cardiac silhouette are stable and within normal limits for portable technique. The lung franklin are clear without acute consolidation, effusion, or pneumothorax. Skeletal structures are intact. IMPRESSION: No acute cardiopulmonary process appreciated. <Electronically signed by Igor Zhang > 07/09/20 0999
[2020-07-09 09:55] LABS: RSV AMPLIFICATION NEGATIVE (NEGATIVE)
[2020-07-09] MEDS ORDERED: KCL 20MEQ IN D5/0.45NS 1000ML 1,000 ML IV SCH (09:55)
[2020-07-09] MEDS ORDERED: INSULIN REGULAR IN 0.9 % NACL 100 UNIT in IV 1 EA IV SCH ×4 (09:55→14:25)
[2020-07-09] MEDS ORDERED: ONDANSETRON 4MG/2ML VIAL IV PRN (10:05)
[2020-07-09] MEDS ORDERED: HYDROMORPHONE HCL 0.5 MG/ 0.5 ML SYRINGE (J1170 PER 1) IV ONE (11:00)
[2020-07-09] MEDS: NS 1,000 ML IV SCH ×2 (11:43→15:46)
[2020-07-09] MEDS: D5W/0.45% SODIUM CHLORIDE 1,000 ML IV SCH ×3 (11:52→21:31)
[2020-07-09 12:14] LABS: BLOOD UREA NITROGEN 8 MG/DL (7-18); CALCIUM LEVEL 8.4 MG/DL (8.5-10.1); CARBON DIOXIDE LEVEL 13 MEQ/L (21-32); CHLORIDE LEVEL 112 MEQ/L (98-107); CREATININE FOR GFR 0.67 MG/DL (0.55-1.30); GLOMERULAR FILTRATION RATE > 60.0 (>60); GLUCOSE, FASTING 272 MG/DL (70-100); MAGNESIUM LEVEL 1.7 MG/DL (1.8-2.4); PHOSPHORUS LEVEL 2.8 MG/DL (2.5-4.9); POTASSIUM SERUM 4.1 MEQ/L (3.5-5.1); SODIUM LEVEL 141 MEQ/L (136-145)
--- NOTE | 2020-07-09 12:41 | HPE ---
HISTORY AND PHYSICAL DATE OF ADMISSION: 07/09/2020 CHIEF COMPLAINT: Nausea, vomiting, abdominal pain, diarrhea. HISTORY OF PRESENT ILLNESS: A 20-year-old female with a history of insulin dependent diabetes, previously admitted 02/14/2020 with DKA , type 1 diabetic with history of appendectomy the age of 6, presents to the emergency room with one day history of nausea, vomiting, abdominal pain and diarrhea, two episodes at home. Last night, the patient experienced nonbilious, nonprojectile vomiting, "too many to count" with persistent nausea, abdominal pain diffusely without rebound, guarding, dysuria, urgency, frequency, fever, chills as well as diarrhea twice without any mucus or blood. The patient did not have any prodromal symptoms over the past few days, denies any fever, chills, cough, dysuria, urgency, frequency and was found to be in DKA today. She called EMS with sugars over 400 and "not feeling well." In the emergency room, she was found to be acidotic and hospitalist was called. I admitted the patient for DKA. PAST MEDICAL HISTORY: Type 1 diabetic, numerous admissions for DKA. PAST SURGICAL HISTORY: Appendectomy at the age of 6. SOCIAL HISTORY: She lives with , previously worked for [employer]. Social alcohol use. No recreational drug use or tobacco use. FAMILY HISTORY: Unknown. REVIEW OF SYSTEMS: As per HPI, 10-point system otherwise negative. PHYSICAL EXAMINATION: VITAL SIGNS: Temperature 97.6, pulse 87, respiratory rate 14, blood pressure 127/79, 100% on room air. GENERAL: In no distress, able to speak in full sentences. No conversational dyspnea. Awake, alert and oriented x3. HEENT: Anicteric, no jaundice, no icterus, no pallor. No JVD or thyromegaly. Dry mucous membranes. No supraclavicular lymphadenopathy. Tongue is midline. Uvula is midline. Speech is fluent. LUNGS: Clear to auscultation, no wheezing, rales or rhonchi. HEART: S1, S2, sinus tachycardia. ABDOMEN: Soft, diffusely tender without rebound or guarding. No hepatosplenomegaly, no CVA tenderness. EXTREMITIES: No cyanosis, clubbing or pitting edema. SKIN: The patient hascolored tattoos on her right upper extremity. LABORATORY DATA: White count 13.6, hemoglobin 13, hematocrit 42, platelet count 469, 89% neutrophils, 6.2% lymphocytes. Sodium 137, potassium 4.4, chloride 105, bicarb 11, Anion gap 21, BUN 10, creatinine 0.85, glucose 419, A1c of 11. Osmolarity 307, calcium 9.5, T bili 0.4, direct bili less than 0.1. AST 13, ALT 10, alk phos 123, total protein 8, albumin 3.9, albumin-globulin ratio of 1. Lipase 68. Urine beta HCG less than 5. UA: 2+ protein, 3+ glucose, 2+ ketones, 2+ blood, negative nitrites, leukocyte esterase, 2 WBCs. Urine drug screen negative. Beta hydroxybutyrate was greater than 46. Coronavirus negative. Influenza A and B, RSV are both negative. PH 7.18, O2 123, CO2 15.7. Blood cultures, two sets pending. Chest x-ray, 07/09/2020: No acute cardiopulmonary process. ASSESSMENT AND PLAN: A 20-year-old with history of type 1 diabetes, insulin dependent with multiple admissions for DKA, presents with complaints of nausea, vomiting, abdominal pain and diarrhea, admitted for diabetic ketoacidosis. IMPRESSION: 1. Diabetic ketoacidosis. The patient will be admitted as an inpatient for two midnights into the intensive care unit with q.1 hourly fingersticks, insulin drip until the patient's anion gap has closed and bicarbonate is 21 and higher. She will be kept on normal saline until glucose level is less than 250 at which point she will be changed to D5 1/2 normal saline. We will continue to monitor with q.4 hourly metabolic panel, potassium, magnesium and phosphorus which will be supplemented if K is less than 3.5, magnesium less than 2 and phosphorus with possible K-Phos or Neutra-Phos if less than normal. The patient will be kept NPO until the patient's acidosis has resolved. She will be kept on IV fluids and supportive care with antiemetics. She complains of generalized pain most likely secondary to significant acidosis. She will be given one dose of intravenous Toradol, continue with IV fluids to prevent acute kidney injury and one dose of intravenous Dilaudid since the patient is maintaining a mean arterial pressure of at least 75. We will reassess need for pain control depending on patient's clinical status and respiratory status and mentation. 2. DVT prophylaxis: With compression stockings and Lovenox subcu daily. 3. Diet: NPO until acidosis has resolved. IV fluids for now. 4. Code status: FULL CODE. MTDD
--- NOTE | 2020-07-09 12:48 | ECGEPIP ---
[facility] - ED Test Date: 2020-07-09 Pat Name: JOZEF ALONZO Department: Room: - Gender: Female Manager Case Management: NEFTALI : 2000 Requested By: Juan Patton Order Number: [id number] Reading MD: Juan Patton Measurements Intervals [place] Rate: 101 P: 64 DE: 136 QRS: 54 QRSD: 70 T: 37 QT: 364 QTc: 471 Interpretive Statements Sinus tachycardia Nonspecific ST T wave changes Borderline prolonged QTc cw 02/15/[address] T wave changes Electronically Signed on 07-09-2020 12:48:11 EDT by Juan Patton
[2020-07-09 14:00] VITALS: BP 105/58
[2020-07-09] MEDS: KETOROLAC 30 MG/ML 1ML VIAL IV ONE ×2 (14:40→14:42)
[2020-07-09 15:33] LABS: BLOOD UREA NITROGEN 5 MG/DL (7-18); CALCIUM LEVEL 8.2 MG/DL (8.5-10.1); CARBON DIOXIDE LEVEL 17 MEQ/L (21-32); CHLORIDE LEVEL 115 MEQ/L (98-107); CREATININE FOR GFR 0.56 MG/DL (0.55-1.30); GLOMERULAR FILTRATION RATE > 60.0 (>60); GLUCOSE, FASTING 212 MG/DL (70-100); MAGNESIUM LEVEL 1.5 MG/DL (1.8-2.4); PHOSPHORUS LEVEL 2.2 MG/DL (2.5-4.9); POTASSIUM SERUM 3.8 MEQ/L (3.5-5.1); SODIUM LEVEL 141 MEQ/L (136-145)
[2020-07-09 15:45] VITALS: BP 114/65
[2020-07-09] MEDS ORDERED: MAG SULF 1GM/100ML (MAG RUN) 1 GM in IV 1 EA IV ONE (16:00)
[2020-07-09] MEDS: INSULIN IV RATE CHANGE DOCUMENTATION ML/HR XX SCH ×4 (16:16→20:07)
[2020-07-09] MEDS: ENOXAPARIN 40MG/0.4ML SYRINGE (J1650 PER 10MG) SC SCH (16:22)
[2020-07-09] MEDS ORDERED: D5W/0.45% SODIUM CHLORIDE 1,000 ML IV ONE (17:00)
[2020-07-09] MEDS ORDERED: HYDROmorphone HCL 2 MG/ML 1ML VIAL (J1170) IV ONE (17:00)
[2020-07-09] MEDS ORDERED: KETOROLAC 30 MG/ML 1ML VIAL IV ONE (17:00)
[2020-07-09] MEDS ORDERED: POTASSIUM CHLORIDE 10 MEQ SR TABLET PO ONE (17:00)
[2020-07-09] MEDS: NEUTRA-PHOS 1.5 GM PACKET PO SCH ×2 (17:09→20:17)
[2020-07-09] MEDS: MAG SULF 1GM/100ML (MAG RUN) 1 GM in IV 1 EA IV SCH ×2 (17:31→18:45)
[2020-07-09] MEDS ORDERED: DEXTROSE 50% 50 ML SYRINGE IV STA (17:33)
[2020-07-09] MEDS ORDERED: D5W/0.45% SODIUM CHLORIDE 1,000 ML IV SCH (18:00)
[2020-07-09] MEDS ORDERED: D10W 1,000 ML IV SCH (18:30)
[2020-07-09 18:45] LABS: BLOOD UREA NITROGEN 4 MG/DL (7-18); CALCIUM LEVEL 7.5 MG/DL (8.5-10.1); CARBON DIOXIDE LEVEL 16 MEQ/L (21-32); CHLORIDE LEVEL 114 MEQ/L (98-107); CREATININE FOR GFR 0.44 MG/DL (0.55-1.30); GLOMERULAR FILTRATION RATE > 60.0 (>60); GLUCOSE, FASTING 214 MG/DL (70-100); PHOSPHORUS LEVEL 2.2 MG/DL (2.5-4.9); POTASSIUM SERUM 3.5 MEQ/L (3.5-5.1); SODIUM LEVEL 141 MEQ/L (136-145)
[2020-07-09 20:00] VITALS: BP 112/67
[2020-07-09] MEDS ORDERED: LEVEMIR (INSULIN DETEMIR) 1 UNITS/0.01ML SC SCH (21:00)
[2020-07-09 21:30] LABS: ABG BASE EXCESS -9.6 (-2.0-2.0); ABG O2 SATURATION 98.9 % (95.0-99.0); ABG PARTIAL PRESSURE CO2 29.4 mmHg (35.0-45.0); ABG PARTIAL PRESSURE O2 133.6 mmHg (75.0-100.0); ABG STANDARD HCO3 16.9 MEQ/L (22.0-26.0); ABG pH (ARTERIAL) 7.327 UNITS (7.350-7.450)
[2020-07-09 22:49] LABS: BLOOD UREA NITROGEN 3 MG/DL (7-18); CALCIUM LEVEL 7.6 MG/DL (8.5-10.1); CARBON DIOXIDE LEVEL 18 MEQ/L (21-32); CHLORIDE LEVEL 113 MEQ/L (98-107); GLOMERULAR FILTRATION RATE > 60.0 (>60); GLUCOSE, FASTING 150 MG/DL (70-100); MAGNESIUM LEVEL 2.6 MG/DL (1.8-2.4); PHOSPHORUS LEVEL 1.9 MG/DL (2.5-4.9); POTASSIUM SERUM 3.4 MEQ/L (3.5-5.1); SODIUM LEVEL 139 MEQ/L (136-145)
[2020-07-10] VITALS: BP 117/68
[2020-07-10] MEDS ORDERED: NEUTRA-PHOS 1.5 GM PACKET PO SCH
[2020-07-10 02:20] LABS: BLOOD UREA NITROGEN 3 MG/DL (7-18); CALCIUM LEVEL 8.2 MG/DL (8.5-10.1); CARBON DIOXIDE LEVEL 18 MEQ/L (21-32); CHLORIDE LEVEL 112 MEQ/L (98-107); CREATININE FOR GFR 0.38 MG/DL (0.55-1.30); GLOMERULAR FILTRATION RATE > 60.0 (>60); GLUCOSE, FASTING 268 MG/DL (70-100); PHOSPHORUS LEVEL 2.9 MG/DL (2.5-4.9); POTASSIUM SERUM 3.5 MEQ/L (3.5-5.1); SODIUM LEVEL 140 MEQ/L (136-145)
[2020-07-10] MEDS: D5W/0.45% SODIUM CHLORIDE 1,000 ML IV SCH (02:43)
[2020-07-10 04:00] VITALS: BP_SYST 109; BP_SYST 112; BP_DIAS 67; BP_DIAS 75
[2020-07-10 05:27] LABS: BASO # 0.1 10^3/uL (0.0-0.2); BASO % 0.6 % (0.0-1.0); EOS # 0.3 10^3/uL (0.0-0.5); EOS % 3.2 % (0.0-3.0); HEMATOCRIT 38.7 % (36.0-47.0); HEMOGLOBIN 12.5 g/dl (12.0-15.5); LYMPH % 35.5 % (24.0-44.0); MEAN CORPUSCULAR HEMOGLOBIN 25.4 pg (27.0-33.0); MEAN CORPUSCULAR HGB CONC 32.3 g/dl (32.0-36.5); MEAN CORPUSCULAR VOLUME 78.5 fl (80.0-96.0); MONO # 0.8 10^3/uL (0.0-0.8); MONO % 9.2 % (2.0-8.0); NEUTROPHILS # 4.4 10^3/uL (1.5-8.5); NEUTROPHILS % 51.1 % (36.0-66.0); PLATELET COUNT, AUTOMATED 375 10^3/uL (150-450); RED BLOOD COUNT 4.93 10^6/uL (4.00-5.40); WHITE BLOOD COUNT 8.6 10^3/uL (4.0-10.0)
[2020-07-10 06:00] LABS: ACETONE/KETONE 5.81 MG/DL (<2.81); ALBUMIN 2.5 GM/DL (3.2-5.2); ALT/SGPT 13 U/L (12-78); BILIRUBIN,TOTAL 0.3 MG/DL (0.2-1.0); BLOOD UREA NITROGEN 3 MG/DL (7-18); CARBON DIOXIDE LEVEL 18 MEQ/L (21-32); CHLORIDE LEVEL 112 MEQ/L (98-107); CHOLESTEROL LEVEL 229 MG/DL (<200); CHOLESTEROL RISK RATIO 4.978 (<5); CREATININE FOR GFR 0.42 MG/DL (0.55-1.30); GLOMERULAR FILTRATION RATE > 60.0 (>60); GLUCOSE, FASTING 203 MG/DL (70-100); HDL CHOLESTEROL 46 MG/DL (>40); LDL CHOLESTEROL 134 MG/DL (<100); NON-HDL-C 183 MG/DL; POTASSIUM SERUM 4.1 MEQ/L (3.5-5.1); SODIUM LEVEL 139 MEQ/L (136-145); TOTAL PROTEIN 5.4 GM/DL (6.4-8.2); TRIGLYCERIDES LEVEL 247 MG/DL (<150)
[2020-07-10] MEDS ORDERED: GLUCAGON INJ 1MG VIAL SC PRN ×2 (06:45→19:20)
[2020-07-10] MEDS ORDERED: DEXTROSE 50% 50 ML SYRINGE IV PRN ×2 (06:45→19:20)
[2020-07-10] MEDS ORDERED: GLUCOSE 4GM CHEW TABLET PO PRN ×2 (06:45→19:20)
[2020-07-10] MEDS ORDERED: HumaLOG INSULIN (NovoLOG) PER UNIT SC SCH ×3 (07:30→21:00)
[2020-07-10 08:00] VITALS: BP 113/80
[2020-07-10] MEDS: ENOXAPARIN 40MG/0.4ML SYRINGE (J1650 PER 10MG) SC SCH (08:30)
[2020-07-10] MEDS: NEUTRA-PHOS 1.5 GM PACKET PO SCH (08:31)
[2020-07-10] MEDS ORDERED: SODIUM BICARBONATE 325 MG TAB PO SCH (09:00)
--- NOTE | 2020-07-10 10:40 | IPNPDOC ---
Date Seen The patient was seen on 07/10/20. Progress Note SUBJECTIVE: PATIENT IS TOLERATING HER DIET. NO COMPLAINTS OF NAUSEA, VOMITING OR ABDOMINAL PAIN. STARTED LEVEMIR INSULIN YESTERDAY BRIDGE THERAPY WITH INSULIN DRIP THAT HAS BEEN DISCONTINUED. SHE APPEARS STABLE OVERNIGHT OBJECTIVE: PHYSICAL EXAM: VITAL SIGNS: SEE BELOW GENERAL: No distress, awake, alert, oriented, answering questions appropriately. No use of respiratory accessory muscles HEENT: Anicteric, no jaundice, no icterus, no pallor. No JVD or thyromegaly. Moist mucous membranes. No supraclavicular lymphadenopathy. Tongue is midline. Uvula is midline. Speech is fluent. LUNGS: Clear to auscultation, no wheezing, rales or rhonchi. Air entry is equal bilaterally HEART: S1, S2, sinus tachycardia. ABDOMEN: Soft, nontender, positive bowel sounds 4 quadrants without rebound or guarding. No hepatosplenomegaly, no CVA tenderness. EXTREMITIES: No cyanosis, clubbing or pitting edema. SKIN: The patient hascolored tattoos on her right upper extremity. LABORATORY DATA: See below Chest x-ray, 07/09/2020: No acute cardiopulmonary process. ASSESSMENT AND PLAN: A 20-year-old with history of type 1 diabetes, insulin dependent with multiple admissions for DKA, presents with complaints of nausea, vomiting, abdominal pain and diarrhea, admitted for diabetic ketoacidosis. Diabetic ketoacidosis., Resolved. Patient has been [place] insulin, currently in consistent c arbohydrate diet May be transferred to medical surgical floor [facility] protocol Insulin sliding scale with coverage before meals and before bedtime Monitor patient's bicarbonate with every 4 hourly basic metabolic panel for the next 8 hours. if stable, may discharge home in the morning VS, I&O, 24H, [facility] Vital Signs/I&O Vital Signs Date Time Temp Pulse Resp B/P (MAP) Pulse Ox O2 Delivery O2 Flow Rate FiO2 07/10/20 04:00 96.8 80 21 109/75 (86) 99 Room Air I&O- Last 24 Hours up to 6 AM 07/10/20 06:00 Intake Total 3455 ml Output Total 850 ml Balance 2605 ml Laboratory Data 24H LABS Laboratory Tests 2 07/09/20 11:27: Anion Gap 16, Glomerular Filtration Rate > 60.0, Calcium Level 8.4L, Phosphorus Level 2.8, Magnesium Level 1.7L 07/09/20 11:39: Bedside Glucose (Misc Panel) 215H 07/09/20 13:08: Bedside Glucose (Misc Panel) 240H 07/09/20 14:09: Bedside Glucose (Misc Panel) 206H 07/09/20 14:57: Anion Gap 9, Glomerular Filtration Rate > 60.0, Calcium Level 8.2L, Phosphorus Level 2.2#L, Magnesium Level 1.5L 07/09/20 15:01: Bedside Glucose (Misc Panel) 190H 07/09/20 16:15: Bedside Glucose (Misc Panel) 144H 07/09/20 17:06: Bedside Glucose (Misc Panel) 95 07/09/20 17:46: Bedside Glucose (Misc Panel) 189H 07/09/20 17:53: Anion Gap 11, Glomerular Filtration Rate > 60.0, Calcium Level 7.5L, Phosphorus Level 2.2L 07/09/20 18:47: Bedside Glucose (Misc Panel) 355H 07/09/20 20:03: Bedside Glucose (Misc Panel) 159H 07/09/20 21:17: Blood Gas Bicarbonate Standard 16.9L, Arterial Blood pH 7.327L, Arterial Blood Partial Pressure CO2 29.4L, Arterial Blood Partial Pressure O2 133.6H, Arterial Blood Total CO2 16.0L, Arterial Blood HCO3 15.0L, Arterial Blood Base Excess - 9.6L, Arterial Blood Oxygen Saturation 98.9 07/09/20 21:27: Bedside Glucose (Misc Panel) 86 07/09/20 22:03: Anion Gap 8, Glomerular Filtration Rate > 60.0, Calcium Level 7.6L, Phosphorus Level 1.9L, Magnesium Level 2.6H 07/09/20 22:28: Bedside Glucose (Misc Panel) 228H 07/09/20 23:27: Bedside Glucose (Misc Panel) 259H 07/10/20 01:17: Bedside Glucose (Misc Panel) 269H 07/10/20 01:36: Anion Gap 10, Glomerular Filtration Rate > 60.0, Calcium Level 8.2L, Phosphorus Level 2.9# 07/10/20 02:47: Bedside Glucose (Misc Panel) 184H 07/10/20 04:09: Bedside Glucose (Misc Panel) 181H 07/10/20 05:04: Immature Granulocyte % (Auto) 0.4, Neutrophils (%) (Auto) 51.1, Lymphocytes (%) (Auto) 35.5, Monocytes (%) (Auto) 9.2H, Eosinophils (%) (Auto) 3.2H, Basophils (%) (Auto) 0.6, Neutrophils # (Auto) 4.4, Lymphocytes # (Auto) 3.0, Monocytes # (Auto) 0.8, Eosinophils # (Auto) 0.3, Basophils # (Auto) 0.1, Nucleated Red Blood Cells % (auto) 0.0, Anion Gap 9, Glomerular Filtration Rate > 60.0, Calcium Level 9.0, Phosphorus Level 3.0, Magnesium Level 2.0, Total Bilirubin 0.3, Aspartate Amino Transf (AST/SGOT) 9, Alanine Aminotransferase (ALT/SGPT) 13, Alkaline Phosphatase 86, Total Protein 5.4#L, Albumin 2.5#L, Albumin/Globulin Ratio 0.9L, Triglycerides Level 247H, Total Cholesterol 229H, LDL Cholesterol 134H, Non-HDL Cholesterol (LDL + VLDL) 183, Total HDL Cholesterol 46, Cholesterol/HDL Ratio 4.978, B-Hydroxybutyrate 5.81H 07/10/20 05:25: Bedside Glucose (Misc Panel) 173H 07/10/20 06:14: Bedside Glucose (Misc Panel) 153H 07/10/20 07:49: Bedside Glucose (Misc Panel) 134H 07/10/20 10:24: CBC/BMP Laboratory Tests 07/09/20 11:27 07/09/20 14:57 07/09/20 17:53 07/09/20 22:03 07/10/20 01:36 07/10/20 05:04 Microbiology Microbiology 07/09/20 Blood Culture, Received Pending 07/09/20 Blood Culture - Preliminary, Resulted No growth after 24 hours . All specim... BRENDA CONCEPCION MD July 10, 2020 10:40
[2020-07-10 11:05] LABS: BLOOD UREA NITROGEN 2 MG/DL (7-18); CALCIUM LEVEL 8.4 MG/DL (8.5-10.1); CARBON DIOXIDE LEVEL 17 MEQ/L (21-32); CHLORIDE LEVEL 112 MEQ/L (98-107); CREATININE FOR GFR 0.71 MG/DL (0.55-1.30); GLOMERULAR FILTRATION RATE > 60.0 (>60); GLUCOSE, FASTING 194 MG/DL (70-100); POTASSIUM SERUM 4.3 MEQ/L (3.5-5.1); SODIUM LEVEL 141 MEQ/L (136-145)
[2020-07-10] MEDS ORDERED: INSULIN REGULAR IN 0.9 % NACL 100 UNIT in IV 1 EA IV SCH ×2 (11:40)
[2020-07-10 12:00] VITALS: BP 102/64
[2020-07-10] MEDS: D10W 1,000 ML IV SCH ×4 (12:50→19:10)
[2020-07-10] MEDS: INSULIN IV RATE CHANGE DOCUMENTATION ML/HR XX SCH ×6 (13:08→19:27)
[2020-07-10] MEDS ORDERED: KETOROLAC 30 MG/ML 1ML VIAL IV PRN (13:50)
[2020-07-10] MEDS ORDERED: PERCOCET 5MG/325MG TAB PO PRN (13:50)
[2020-07-10 14:38] LABS: BLOOD UREA NITROGEN 1 MG/DL (7-18); CALCIUM LEVEL 8.7 MG/DL (8.5-10.1); CARBON DIOXIDE LEVEL 19 MEQ/L (21-32); CHLORIDE LEVEL 113 MEQ/L (98-107); CREATININE FOR GFR 0.55 MG/DL (0.55-1.30); GLOMERULAR FILTRATION RATE > 60.0 (>60); GLUCOSE, FASTING 183 MG/DL (70-100); PHOSPHORUS LEVEL 1.6 MG/DL (2.5-4.9); POTASSIUM SERUM 3.6 MEQ/L (3.5-5.1); SODIUM LEVEL 141 MEQ/L (136-145)
[2020-07-10 16:00] VITALS: BP 129/84
[2020-07-10 18:30] LABS: BLOOD UREA NITROGEN 2 MG/DL (7-18); CALCIUM LEVEL 8.3 MG/DL (8.5-10.1); CARBON DIOXIDE LEVEL 20 MEQ/L (21-32); CHLORIDE LEVEL 110 MEQ/L (98-107); CREATININE FOR GFR 0.48 MG/DL (0.55-1.30); GLOMERULAR FILTRATION RATE > 60.0 (>60); GLUCOSE, FASTING 215 MG/DL (70-100); MAGNESIUM LEVEL 1.7 MG/DL (1.8-2.4); PHOSPHORUS LEVEL 1.8 MG/DL (2.5-4.9); POTASSIUM SERUM 3.2 MEQ/L (3.5-5.1); SODIUM LEVEL 138 MEQ/L (136-145)
[2020-07-10] MEDS ORDERED: POTASSIUM CHLORIDE 10 MEQ SR TABLET PO ONE ×2 (19:15)
[2020-07-10] MEDS ORDERED: MAG SULF 1GM/100ML (MAG RUN) 1 GM in IV 1 EA IV ONE (19:15)
[2020-07-10] MEDS ORDERED: LEVEMIR (INSULIN DETEMIR) 1 UNITS/0.01ML SC ONE (19:20)
[2020-07-10 20:00] VITALS: BP 118/69
[2020-07-10 23:50] LABS: BLOOD UREA NITROGEN 2 MG/DL (7-18); CALCIUM LEVEL 8.3 MG/DL (8.5-10.1); CARBON DIOXIDE LEVEL 23 MEQ/L (21-32); CHLORIDE LEVEL 114 MEQ/L (98-107); CREATININE FOR GFR 0.38 MG/DL (0.55-1.30); GLOMERULAR FILTRATION RATE > 60.0 (>60); GLUCOSE, FASTING 91 MG/DL (70-100); MAGNESIUM LEVEL 2.1 MG/DL (1.8-2.4); PHOSPHORUS LEVEL 3.1 MG/DL (2.5-4.9); POTASSIUM SERUM 3.8 MEQ/L (3.5-5.1); SODIUM LEVEL 143 MEQ/L (136-145)
[2020-07-11] VITALS: BP 109/66
[2020-07-11 04:00] VITALS: BP 103/67
[2020-07-11 05:42] LABS: BASO % 0.3 % (0.0-1.0); EOS # 0.1 10^3/uL (0.0-0.5); EOS % 1.8 % (0.0-3.0); HEMATOCRIT 35.3 % (36.0-47.0); HEMOGLOBIN 11.3 g/dl (12.0-15.5); LYMPH # 2.3 10^3/uL (1.5-5.0); LYMPH % 34.7 % (24.0-44.0); MEAN CORPUSCULAR HEMOGLOBIN 25.3 pg (27.0-33.0); MONO # 0.6 10^3/uL (0.0-0.8); MONO % 8.6 % (2.0-8.0); NEUTROPHILS # 3.6 10^3/uL (1.5-8.5); NEUTROPHILS % 54.3 % (36.0-66.0); PLATELET COUNT, AUTOMATED 352 10^3/uL (150-450); RED BLOOD COUNT 4.47 10^6/uL (4.00-5.40); WHITE BLOOD COUNT 6.6 10^3/uL (4.0-10.0)
[2020-07-11 05:52] LABS: BLOOD UREA NITROGEN 3 MG/DL (7-18); CALCIUM LEVEL 8.5 MG/DL (8.5-10.1); CARBON DIOXIDE LEVEL 24 MEQ/L (21-32); CHLORIDE LEVEL 113 MEQ/L (98-107); CREATININE FOR GFR 0.33 MG/DL (0.55-1.30); GLOMERULAR FILTRATION RATE > 60.0 (>60); GLUCOSE, FASTING 94 MG/DL (70-100); MAGNESIUM LEVEL 1.9 MG/DL (1.8-2.4); PHOSPHORUS LEVEL 3.8 MG/DL (2.5-4.9); POTASSIUM SERUM 4.2 MEQ/L (3.5-5.1); SODIUM LEVEL 142 MEQ/L (136-145)
[2020-07-11 06:53] VITALS: BP 123/80
[2020-07-11] MEDS ORDERED: HumaLOG INSULIN (NovoLOG) PER UNIT SC SCH (07:30)
[2020-07-11 08:00] VITALS: BP 124/77
[2020-07-11] MEDS ORDERED: NEUTRA-PHOS 1.5 GM PACKET PO SCH (08:00)
[2020-07-11] MEDS: ENOXAPARIN 40MG/0.4ML SYRINGE (J1650 PER 10MG) SC SCH (08:45)
[2020-07-11] MEDS ORDERED: LEVEMIR (INSULIN DETEMIR) 1 UNITS/0.01ML SC SCH (09:00)
[2020-07-11] MEDS ORDERED: LEVEMIR (INSULIN DETEMIR) 1 UNITS/0.01ML SC ONE (11:30)
--- NOTE | 2020-07-11 20:54 | DS.PDOC ---
Discharge Summary General Date of Admission July 09, 2020 at 10:07 Date of Discharge 07/11/20 Attending Physician: Lyudmila Morales MD Discharge Summary HISTORY OF PRESENT ILLNESS: A 20-year-old female with a history of insulin dependent diabetes, previously admitted 02/14/2020 with DKA , type 1 diabetic with history of appendectomy the age of 6, presents to the emergency room with one day history of nausea, vomiting, abdominal pain and diarrhea, two episodes at home. Last night, the patient experienced nonbilious, nonprojectile vomiting, "too many to count" with persistent nausea, abdominal pain diffusely without rebound, guarding, dysuria, urgency, frequency, fever, chills as well as diarrhea twice without any mucus or blood. The patient did not have any prodromal symptoms over the past few days, denies any fever, chills, cough, dysuria, urgency, frequency and was found to be in DKA today. She called EMS with sugars over 400 and "not feeling well." In the emergency room, she was found to be acidotic and hospitalist was called. patient was admitted for further tx of DKA HOSPITAL COURSE: Patient was kept on insulin gtt overnight, blood sugars and AG improved significantly. She was transitioned off gtt and started on insulin 15 U SC HS. She had worsening acidosis over the next 24 hours and insulin gtt was restarted. She was later converted to levemir HS. Over the second night, patient had episode of hypoglycemia likely 2/2 to night time insulin administration. Early AM on 07/11/20 discussion was had with patient in detail. She admitted to being noncompliant with her home regimen as she was currently traveling and 9 her home state. She denied being out of her medications and states that she typically carb counts in order to administer her insulins. Her blood sugar had improved from the night previously and she was tolerating her diet fine. Decision was made to discharge home with her to continue her prior regimen. She is recently relocated to a different state that is set up with a primary care provider who will be referring her to an commissary helper in her local area. At time of discharge the patient's was awake alert and oriented 3, in no acute distress and had no acute complaints. She understood she had to eat 3 meals a day and take her insulin as previously directed by her prior commissary helper. There were no changes made to her home regimen negative discharge. PAST MEDICAL HISTORY: Type 1 diabetic, numerous admissions for DKA. PAST SURGICAL HISTORY: Appendectomy at the age of 6. SOCIAL HISTORY: She lives with , previously worked for [employer]. Social alcohol use. No recreational drug use or tobacco use. FAMILY HISTORY: Unknown. ALLERGIES: Please see below. DISCHARGE MEDICATIONS: Please see below. PHYSICAL EXAM: VITAL SIGNS: Please see below GENERAL: NAD, resting in bed. AAOx 3 HEENT: Anicteric, no jaundice, no icterus, no pallor. No JVD or thyromegaly. AT/NC LUNGS: Clear to auscultation, no wheezing, rales or rhonchi. Air entry is equal bilaterally HEART: S1, S2, NSR. No M/r/g ABDOMEN: Soft, nontender, positive bowel sounds 4 quadrants without rebound or guarding. No hepatosplenomegaly, no CVA tenderness. EXTREMITIES: No cyanosis, clubbing or pitting edema. SKIN: The patient has colored tattoos on her right upper extremity. LABORATORY DATA: See below IMAGING: Chest x-ray, 07/09/2020: No acute cardiopulmonary process. ASSESSMENT: 20-year-old with history of type 1 diabetes, insulin dependent with multiple admissions for DKA, admitted for DKA likely 2/2 to noncompliance with home medications. PLAN: DKA 2/2 to medication noncompliance- resolved -BS improved, hypoglycemia resolved from overnight -tolerated meals well -patient to resume home insulin regimen and f/u with both PCP and commissary helper as o/p -She was counselled on the importance of being compliant with medications, eating regularly and taking her blood sugar readings. She assured me that she has to carb count and checks BS frequently. DISPOSITION: D/c home today to f/u with PCP, commissary helper as o/p. TIME SPENT ON DISCHARGE: Greater than 35 minutes. Vital Signs/I&Os Vital Signs Date Time Temp Pulse Resp B/P (MAP) Pulse Ox O2 Delivery O2 Flow Rate FiO2 07/11/20 08:00 98.8 87 18 124/77 (93) 99 Room Air I&O- Last 24 Hours up to 6 AM 07/11/20 06:00 Intake Total 2817 ml Output Total 1425 ml Balance 1392 ml Laboratory Data Labs 24H Laboratory Tests 2 07/10/20 21:38: Bedside Glucose (Misc Panel) 203H 07/10/20 23:08: Anion Gap 6L, Glomerular Filtration Rate > 60.0, Calcium Level 8.3L, Phosphorus Level 3.1#, Magnesium Level 2.1 07/11/20 01:41: Bedside Glucose (Misc Panel) 50L 07/11/20 02:36: Bedside Glucose (Misc Panel) 112H 07/11/20 04:47: Immature Granulocyte % (Auto) 0.3, Neutrophils (%) (Auto) 54.3, Lymphocytes (%) (Auto) 34.7, Monocytes (%) (Auto) 8.6H, Eosinophils (%) (Auto) 1.8, Basophils (%) (Auto) 0.3, Neutrophils # (Auto) 3.6, Lymphocytes # (Auto) 2.3, Monocytes # (Auto) 0.6, Eosinophils # (Auto) 0.1, Basophils # (Auto) 0.0, Nucleated Red Blood Cells % (auto) 0.0, Anion Gap 5L, Glomerular Filtration Rate > 60.0, Calcium Level 8.5, Phosphorus Level 3.8#, Magnesium Level 1.9 07/11/20 08:44: Bedside Glucose (Misc Panel) 138H CBC/BMP Laboratory Tests 07/10/20 23:08 07/11/20 04:47 FSBS Laboratory Tests Test 07/10/20 21:38 07/11/20 01:41 07/11/20 02:36 07/11/20 08:44 Range/Units Bedside Glucose (Misc Panel) 203 50 112 138 70-105 MG/DL Microbiology Microbiology 07/09/20 Blood Culture - Preliminary, Resulted No Growth after 48 hours. All Specime... 07/09/20 Blood Culture - Preliminary, Resulted No Growth after 48 hours. All Specime... Discharge Medications Scheduled Atorvastatin Calcium (Atorvastatin Calcium) 10 Mg Tablet, 10 MG PO DAILY, (Reported) Cholecalciferol (Vitamin D3) (Vitamin D3) 50 Mcg Capsule, 50 MCG PO DAILY, (Reported) Insulin Degludec (Tresiba Flextouch U-100) 100 Unit/1 Ml Insuln.pen, 30 UNIT SC DAILY, (Reported) Insulin Human Lispro (Humalog) 100 Unit/1 Ml Vial, 1 DOSE SC AC, (Reported) SLIDING SCALE PER DEANNE (ALSO USES UNITS PER GRAM OF CARB DOSING THROUGHOUT THE DAY) Lisinopril (Lisinopril) 10 Mg Tab, 10 MG PO DAILY, (Reported) Scheduled PRN Glucagon,Human Recombinant (Glucagon Emergency Kit) 1 Mg Kit, 1 MG IM ASDIRECTED PRN for LOW BLOOD SUGAR, (Reported) Allergies Coded Allergies: Pistachio (Verified Allergy, Unknown, 04/25/19) Lyudmila Morales MD July 11, 2020 20:54
== END 2020-07-11 12:22 | disposition home or self-care (01) | DRG 638 ==
LOC: EDBD 06:55 → M ED 06:55 → M ED INP 10:07 → M ICU 13:27 → M PED 07-11 06:44
PROVIDERS: ADMIT General Practice; ATTEND Internal Medicine
DX: E10.10 Type 1 diabetes mellitus with ketoacidosis without coma (principal); E87.2 Acidosis; Z91.14 Patient's other noncompliance with medication regimen; Z79.899 Other long term (current) drug therapy; Z79.4 Long term (current) use of insulin; Z91.010 Allergy to peanuts

== ENCOUNTER 2020-10-15 20:33 | Emergency (ER) | payer SELFPAY ==
[~2020-10-15] VITALS: Ht 157.5 cm; Wt 49.4 kg
[~2020-10-15 20:33] MED LIST changes: +BACTDSTA PO; -SULF1TAB93 PO
[2020-10-15 20:36] VITALS: BP 131/94
[2020-10-15] MEDS ORDERED: LANTINJ4 SC (21:22)
== END 2020-10-15 22:27 | disposition left against medical advice (07) ==
LOC: M ED 20:33
DX: Z53.21 Procedure and treatment not carried out due to patient leaving prior to being seen by health care provider (principal)

== ENCOUNTER → 2020-10-17 | Outpatient (REF) | payer OTHER ==
[~2020-10-17] MED LIST changes: +LANTINJ4 SC
== END ==
LOC: M LAB REF 16:42
PROVIDERS: ATTEND Obstetrics & Gynecology
DX: O02.1 Missed abortion (principal)

== ENCOUNTER 2020-10-26 17:25 | Inpatient (IN) | payer OTHER ==
[~2020-10-26] VITALS: Ht 157.5 cm; Wt 47.1 kg
[2020-10-26] MEDS ORDERED: NS 1,000 ML IV ONE ×2 (17:50→19:05)
--- NOTE | 2020-10-26 18:13 | REP ---
INDICATION: CP. COMPARISON: None. TECHNIQUE: Single portable AP view of the chest was performed. FINDINGS: There is no acute infiltrate or pulmonary edema. Lungs are clear. The heart is not significantly enlarged. The mediastinal silhouette is unremarkable. The visualized osseous structures are intact. IMPRESSION: No acute pulmonary disease. <Electronically signed by Major Gutierrez > 10/26/20 [id number]
[2020-10-26 20:00] LABS: BASO # 0.1 10^3/uL (0.0-0.2); BASO % 0.3 % (0.0-1.0); EOS # 0.1 10^3/uL (0.0-0.5); EOS % 0.7 % (0.0-3.0); HEMOGLOBIN 14.4 g/dl (12.0-15.5); LYMPH % 15.4 % (24.0-44.0); MEAN CORPUSCULAR HEMOGLOBIN 26.8 pg (27.0-33.0); MEAN CORPUSCULAR VOLUME 83.8 fl (80.0-96.0); MONO # 0.8 10^3/uL (0.0-0.8); MONO % 4.1 % (2.0-8.0); NEUTROPHILS # 15.2 10^3/uL (1.5-8.5); NEUTROPHILS % 78.9 % (36.0-66.0); PLATELET COUNT, AUTOMATED 661 10^3/uL (150-450); RED BLOOD COUNT 5.37 10^6/uL (4.00-5.40); WHITE BLOOD COUNT 19.2 10^3/uL (4.0-10.0)
[2020-10-26 20:05] LABS: VENOUS BASE EXCESS -22.1 (-2.0-2.0); VENOUS HCO3 6.5 MEQ/L (23.0-27.0); VENOUS O2 SATURATION 80.1 % (60.0-80.0); VENOUS PARTIAL PRESSURE CO2 23.2 mmHg (38.0-50.0); VENOUS PARTIAL PRESSURE O2 54.6 mmHg (30.0-50.0); VENOUS PH 7.067 UNITS (7.330-7.430); VENOUS STANDARD HCO3 8.9 MEQ/L; VENOUS TOTAL CO2 7.2 MEQ/L (24.0-28.0)
[2020-10-26 20:16] LABS: HEMOGLOBIN A1c 10.2 %
[2020-10-26 20:32] LABS: OSMOLALITY SERUM 304 MOSM/KG (275-295)
[2020-10-26 20:40] LABS: ALBUMIN 3.6 GM/DL (3.2-5.2); ALT/SGPT 20 U/L (12-78); BILIRUBIN,DIRECT 0.1 MG/DL (0.0-0.2); BILIRUBIN,TOTAL 0.4 MG/DL (0.2-1.0); LIPASE 90 U/L (73-393); PHOSPHORUS LEVEL 4.6 MG/DL (2.5-4.9); TOTAL PROTEIN 8.1 GM/DL (6.4-8.2)
[2020-10-26 20:43] LABS: ACETONE/KETONE > 46.00 MG/DL (<2.81)
[2020-10-26] MEDS ORDERED: fentaNYL 100 MCG/2 ML INJECTION (J3010) IV ONE (20:50)
[2020-10-26 20:52] LABS: BLOOD UREA NITROGEN 8 MG/DL (7-18); CALCIUM LEVEL 9.4 MG/DL (8.5-10.1); CARBON DIOXIDE LEVEL 7 MEQ/L (21-32); CHLORIDE LEVEL 100 MEQ/L (98-107); CREATININE FOR GFR 0.77 MG/DL (0.55-1.30); GLOMERULAR FILTRATION RATE > 60.0 (>60); GLUCOSE, FASTING 435 MG/DL (70-100); POTASSIUM SERUM 4.6 MEQ/L (3.5-5.1); SODIUM LEVEL 134 MEQ/L (136-145)
[2020-10-26] MEDS ORDERED: ONDANSETRON 4MG/2ML VIAL IV ONE (22:05)
[2020-10-26] MEDS ORDERED: INSULIN REGULAR IN 0.9 % NACL 100 UNIT in IV 1 EA IV SCH ×2 (22:05)
[2020-10-26] MEDS ORDERED: HumuLIN R (REGULAR) INSULIN (NovoLIN R) **100U/ML** PER UNIT IV ONE (22:05)
[2020-10-26] MEDS ORDERED: INSULIN IV RATE CHANGE DOCUMENTATION ML/HR XX SCH (22:05)
[2020-10-26] MEDS: MORPHINE 4 MG/ML 1ML VIAL/SYRINGE (J2270) IV PRN (22:17)
[2020-10-27] VITALS (9 sets, daily range): BP systolic 96–124; BP diastolic 56–83
[2020-10-27] MEDS ORDERED: NS 1,000 ML IV ONE (00:25)
[2020-10-27 00:29] LABS: VENOUS BASE EXCESS -23.1 (-2.0-2.0); VENOUS O2 SATURATION 76.4 % (60.0-80.0); VENOUS PARTIAL PRESSURE CO2 22.6 mmHg (38.0-50.0); VENOUS PARTIAL PRESSURE O2 47.5 mmHg (30.0-50.0); VENOUS PH 7.043 UNITS (7.330-7.430); VENOUS STANDARD HCO3 8.3 MEQ/L; VENOUS TOTAL CO2 6.7 MEQ/L (24.0-28.0)
[2020-10-27] MEDS ORDERED: MAALOX 30 ML SUSP *UDC PO PRN (00:35)
[2020-10-27] MEDS ORDERED: INSULIN REGULAR IN 0.9 % NACL 100 UNIT in IV 1 EA IV SCH ×2 (00:35)
[2020-10-27] MEDS ORDERED: MOM 30ML SUSPENSION UDC PO PRN (00:35)
[2020-10-27] MEDS ORDERED: KCL 20MEQ in NS 1000ML 1,000 ML IV SCH (00:35)
[2020-10-27 00:59] LABS: BLOOD UREA NITROGEN 6 MG/DL (7-18); CARBON DIOXIDE LEVEL 8 MEQ/L (21-32); CHLORIDE LEVEL 109 MEQ/L (98-107); CREATININE FOR GFR 0.76 MG/DL (0.55-1.30); GLOMERULAR FILTRATION RATE > 60.0 (>60); GLUCOSE, FASTING 382 MG/DL (70-100); MAGNESIUM LEVEL 1.9 MG/DL (1.8-2.4); PHOSPHORUS LEVEL 3.2 MG/DL (2.5-4.9); POTASSIUM SERUM 4.2 MEQ/L (3.5-5.1); SODIUM LEVEL 136 MEQ/L (136-145)
[2020-10-27 00:59] LABS: RSV AMPLIFICATION NEGATIVE (NEGATIVE)
[2020-10-27] MEDS ORDERED: LANTINJ4 SC (01:36)
[2020-10-27] MEDS ORDERED: HOME MED LIST COMPLETE! XX SCH (01:40)
[2020-10-27] MEDS: MORPHINE 4 MG/ML 1ML VIAL/SYRINGE (J2270) IV PRN (02:20)
[2020-10-27] MEDS: INSULIN IV RATE CHANGE DOCUMENTATION ML/HR XX SCH ×6 (03:23→09:51)
--- NOTE | 2020-10-27 03:32 | HPEPDOC ---
[facility] Medical History & Physical Date of Admission Oct 27, 2020 Date of Service: Oct 27, 2020 Attending Physician: JEAN HENNESSY MD History and Physical TIME OF SERVICE: 415am CHIEF COMPLAINT: typical DKA symptoms HISTORY OF PRESENT ILLNESS: a 20 yr old F was last admitted here in July with DKA. Today she presented with complaints of having typical DKA symptoms. Yesterday morning at about 3AM she begun to feel nauseous, dizzy and had non-bloody emesis. She has also been urinating more frequently and has been feeling thirstier. She denied having pain with urination. Unfortunately had a miscarriage last week and since then her appetite has been poor. She has lost a lost a lot of weight; she usually weighs about 120 lbs today she is down to 103 lbs. REVIEW OF SYSTEMS: 10-point review of systems negative except as listed in HPI PAST MEDICAL/ SURGICAL HISTORY: DM1 (attends the [employer]), frequent episodes of DKA, Vitiligo, CKD, Appendectomy SOCIAL HISTORY: She recently moved back to the area from [place] and doesnt have a PCP. She uses THC products. She doesnt smoke tobacco products or drink alcohol. FAMILY HISTORY: none of her relatives have DM ALLERGIES: Please see below. HOME MEDICATIONS: Please see below. PHYSICAL EXAMINATION: Vital Signs Date Time Temp Pulse Resp B/P (MAP) Pulse Ox O2 Delivery O2 Flow Rate FiO2 10/26/20 17:26 98.4 125 20 133/67 (89) 97 Room Air GENERAL APPEARANCE: slim build /well developed / NAD HEENT: EOMI / MMM&P CARDIOVASCULAR: tachycardic / NMRG LUNGS: CTAB on RA ABDOMEN: contour flat/ soft & NT w palpation MUSCULOSKELETAL: NCAT /RAKEL x 4 extremities INTEGUMENT: vitiligo / multiple tattoos NEUROLOGICAL: CN 2-12 grossly intact /speech not dysarthric PSYCHIATRIC: A&O x 3/ able to understand & follow all commands LABORATORY DATA: 10/26/20 18:06 IMAGING: Chest xray IMPRESSION: No acute pulmonary disease. MICROBIOLOGY: Respiratory panel is neg ASSESSMENT: is a 20 yr old w a hx of DM1 and vitiligo who is admitted for DKA. PLAN: 1 DKA I suspect the trigger may be stress related to her recent miscarriage Her DKA MPM Score to predict risk of in hospital mortality score is 0 Her A1C is 10.2% Plan: admit to ICU /NPO / Insulin drip per protocol/ IVF / f/u blood cx / f/u accuchecks Q1H, BMP Q4H, venous PH Q4H,, Mag Q4H, phosphorus Q4H/ DM education / she will need to be referred to a new PCP when she is ready to be discharged home 2 SIRS Possibly reactive vs due to occult infection Plan: f/u blood cx 3 Weight loss Plan; f/u TSH DVT px w TEDs/SCDs Dispo: home after less than 2 midnights stay LATE ENTRY #Hypokalemia - replete K #Hypomagnesemia -replete Phosphorus Home Medications Scheduled Acetaminophen (Acetaminophen) 500 Mg Tablet, 2 TAB PO Q6H for fever Insulin Glargine,Hum.rec.anlog (Lantus Solostar) 100 Unit/1 Ml Insuln.pen, 22 UNITS SC BID Insulin Human Lispro (Humalog) 100 Unit/1 Ml Vial, 1 DOSE SC AC SLIDING SCALE PER DEANNE (ALSO USES UNITS PER GRAM OF CARB DOSING THROUGHOUT THE DAY) Scheduled PRN Glucagon,Human Recombinant (Glucagon Emergency Kit) 1 Mg Kit, 1 MG IM ASDIRECTED PRN for LOW BLOOD SUGAR Ondansetron (Ondansetron Odt) 4 Mg Tab.rapdis, 4 MG PO Q6-8HP PRN for nausea/vomiting Allergies Coded Allergies: Pistachio (Verified Allergy, Unknown, 04/25/19) A-FIB/CHADSVASC A-FIB History Current/History of A-Fib/PAF?: No Current PO Anticoag Therapy: No JEAN HENNESSY MD Oct 27, 2020 03:32
[2020-10-27 04:28] LABS: VENOUS BASE EXCESS -20.3 (-2.0-2.0); VENOUS HCO3 7.6 MEQ/L (23.0-27.0); VENOUS O2 SATURATION 78.8 % (60.0-80.0); VENOUS PARTIAL PRESSURE CO2 24.2 mmHg (38.0-50.0); VENOUS PH 7.112 UNITS (7.330-7.430); VENOUS STANDARD HCO3 9.6 MEQ/L; VENOUS TOTAL CO2 8.3 MEQ/L (24.0-28.0)
[2020-10-27] MEDS: POTASSIUM CHLORIDE INJ 30 MEQ in D5W/0.45% SODIUM CHLORIDE 1,000 ML IV SCH ×2 (04:54→12:35)
[2020-10-27 05:18] LABS: BLOOD UREA NITROGEN 3 MG/DL (7-18); CALCIUM LEVEL 7.9 MG/DL (8.5-10.1); CARBON DIOXIDE LEVEL 11 MEQ/L (21-32); CHLORIDE LEVEL 120 MEQ/L (98-107); CREATININE FOR GFR 0.68 MG/DL (0.55-1.30); GLOMERULAR FILTRATION RATE > 60.0 (>60); GLUCOSE, FASTING 149 MG/DL (70-100); MAGNESIUM LEVEL 1.6 MG/DL (1.8-2.4); PHOSPHORUS LEVEL 1.3 MG/DL (2.5-4.9); POTASSIUM SERUM 4.1 MEQ/L (3.5-5.1); SODIUM LEVEL 142 MEQ/L (136-145)
[2020-10-27] MEDS ORDERED: MAG SULF 1GM/100ML (MAG RUN) 1 GM in IV 1 EA IV ONE ×2 (06:00→09:50)
[2020-10-27] MEDS ORDERED: POTASSIUM CHLORIDE INJ 30 MEQ in D5W/0.45% SODIUM CHLORIDE 1,000 ML IV SCH (06:00)
[2020-10-27] MEDS ORDERED: MAGNESIUM OXIDE 400MG TAB (MAG-OX) PO ONE ×3 (06:30→14:00)
[2020-10-27] MEDS: ACETAMINOPHEN 650MG ER TAB (TYLENOL ARTHRITIS) PO SCH ×2 (06:45→14:00)
[2020-10-27] MEDS: ONDANSETRON 4MG/2ML VIAL IV PRN (06:53)
[2020-10-27] MEDS ORDERED: POTASSIUM PHOSPHATE INJ 18 MMOL in D5W 250 ML IV ONE (08:00)
[2020-10-27 08:10] LABS: VENOUS BASE EXCESS -12.2 (-2.0-2.0); VENOUS HCO3 12.7 MEQ/L (23.0-27.0); VENOUS PARTIAL PRESSURE O2 165.1 mmHg (30.0-50.0); VENOUS PH 7.292 UNITS (7.330-7.430); VENOUS TOTAL CO2 13.6 MEQ/L (24.0-28.0)
[2020-10-27 09:08] LABS: BLOOD UREA NITROGEN 3 MG/DL (7-18); CALCIUM LEVEL 7.9 MG/DL (8.5-10.1); CARBON DIOXIDE LEVEL 16 MEQ/L (21-32); CHLORIDE LEVEL 116 MEQ/L (98-107); GLOMERULAR FILTRATION RATE > 60.0 (>60); GLUCOSE, FASTING 162 MG/DL (70-100); PHOSPHORUS LEVEL 1.8 MG/DL (2.5-4.9); POTASSIUM SERUM 3.7 MEQ/L (3.5-5.1); SODIUM LEVEL 139 MEQ/L (136-145)
[2020-10-27] MEDS ORDERED: NEUTRA-PHOS 1.5 GM PACKET PO ONE (09:50)
[2020-10-27] MEDS ORDERED: POTASSIUM CHLORIDE 10 MEQ SR TABLET PO ONE (09:50)
--- NOTE | 2020-10-27 10:15 | ECGEPIP ---
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
[2020-10-27] MEDS: LEVEMIR (INSULIN DETEMIR) 1 UNITS/0.01ML SC SCH ×2 (10:39→21:00)
--- NOTE | 2020-10-27 11:44 | IPNPDOC ---
Text Note Date of Service The patient was seen on 10/27/20. NOTE SUBJECTIVE: -No complaints this morning -Tells me that she has been nauseous and not tolerating PO since her miscarriage 10d ago. She reports that she did not receive any meds or procedure and was 10w and bleeding stopped. She was to follow up with child care center administrator for hormone checks? I imagine HCG? No fever, chills, abdominal pain, vaginal discharge or bleeding. Does smoke MJ daily and bought a recent vape for nicotine. OBJECTIVE: VITALS: see below GENERAL APPEARANCE: NAD HEENT: NCAT, EOMI, MMM CARDIOVASCULAR: RRR, no m/r/g LUNGS: CTAB ABDOMEN: contour flat, normoactive bowel sounds, NTND, has slight discomfort with deep palpation INTEGUMENT: vitiligo and has multiple tatoos NEUROLOGICAL: CN 3-12 grossly intact, speech not dysarthric, moving all extremities PSYCHIATRIC: A&O x 3 LABORATORY DATA: WBC 19.2 Hgb 14.4 platelets 661 Na 139 K 3.7 Cr 0.5 phos 1.8 Mag 1.6 IMAGING: Chest xray IMPRESSION: No acute pulmonary disease. MICROBIOLOGY: Respiratory panel is neg ASSESSMENT: 20 yr old w DM1 diabetic, who recently had a miscarriage 10d ago at 10w gestation that was spontaneous without medical interventions, daily MJ user and recent vaper who reports poor PO with nausea since miscarriage now admitted for DKA. PLAN: DKA -A1C is 10.2% -ICU / Insulin drip per protocol/ D51/2 NS IVF / f/u blood cx / f/u accuchecks Q2H, BMP Q4H, Mag Q4H, phosphorus Q4H -Trigger includes stress and poor PO but decided to curbside child care center administrator about potential complications of her spontaneous at 10w without reported D&C now with leukocytosis and DKA and Dr. Escobar recommended quantitative HCG and pelvic US -currently bridging with 20 BID levemir per baseline -to be started on consistent carb diet soon, has been NPO Electrolyte derrangements i/s/o DKA, with hypokalemia, hypomagnesemia and hypophosphatemia -Aggressive replete PRN SIRS Possibly reactive vs infection, with c/f complications of her spontaneous at 10w without reported D&C now with leukocytosis and DKA and Dr. Escobar recommended quantitative HCG and pelvic US -f/u blood cx -IVF -No abx at this time, will monitor DVT px w TEDs/SCDs. She is hypercoagulable given recent and 1st tr imester spontaneous , will add lovenox 40 SC Dispo: home after less than 2 midnights stay VS,Fishbone, I+O VS, Fishbone, I+O Laboratory Tests 10/26/20 17:47 10/26/20 18:06 10/27/20 00:03 10/27/20 04:19 10/27/20 07:59 Vital Signs Date Time Temp Pulse Resp B/P (MAP) Pulse Ox O2 Delivery O2 Flow Rate FiO2 10/27/20 08:00 97.8 109 20 124/67 (86) 98 Room Air I&O- Last 24 Hours up to 6 AM 10/27/20 06:00 Intake Total 3840.5 ml Output Total 600 ml Balance 3240.5 ml KATIUSKA PHILLIP MD Oct 27, 2020 11:44
[2020-10-27] MEDS ORDERED: NEUTRA-PHOS 1.5 GM PACKET PO SCH (12:30)
[2020-10-27 13:09] LABS: BLOOD UREA NITROGEN 3 MG/DL (7-18); CALCIUM LEVEL 7.8 MG/DL (8.5-10.1); CARBON DIOXIDE LEVEL 17 MEQ/L (21-32); CHLORIDE LEVEL 116 MEQ/L (98-107); CREATININE FOR GFR 0.45 MG/DL (0.55-1.30); GLOMERULAR FILTRATION RATE > 60.0 (>60); GLUCOSE, FASTING 159 MG/DL (70-100); MAGNESIUM LEVEL 1.7 MG/DL (1.8-2.4); PHOSPHORUS LEVEL 2.7 MG/DL (2.5-4.9); POTASSIUM SERUM 3.9 MEQ/L (3.5-5.1); SODIUM LEVEL 139 MEQ/L (136-145)
[2020-10-27] MEDS ORDERED: GLUCOSE 4GM CHEW TABLET PO PRN (14:00)
[2020-10-27] MEDS ORDERED: GLUCAGON INJ 1MG VIAL SC PRN (14:00)
[2020-10-27] MEDS ORDERED: DEXTROSE 50% 50 ML SYRINGE IV PRN (14:00)
[2020-10-27 16:20] LABS: BLOOD UREA NITROGEN 2 MG/DL (7-18); CALCIUM LEVEL 8.6 MG/DL (8.5-10.1); CARBON DIOXIDE LEVEL 17 MEQ/L (21-32); CHLORIDE LEVEL 112 MEQ/L (98-107); CREATININE FOR GFR 0.67 MG/DL (0.55-1.30); GLOMERULAR FILTRATION RATE > 60.0 (>60); GLUCOSE, FASTING 290 MG/DL (70-100); POTASSIUM SERUM 4.3 MEQ/L (3.5-5.1); SODIUM LEVEL 139 MEQ/L (136-145)
[2020-10-27] MEDS: HumaLOG INSULIN (NovoLOG) PER UNIT SC SCH (17:46)
--- NOTE | 2020-10-27 18:04 | REP ---
INDICATION: recent miscarriage COMPARISON: None. TECHNIQUE: Transabdominal pelvic ultrasound followed by transvaginal examination for better evaluation of the endometrium and adnexa with color Doppler evaluation of the ovaries. FINDINGS: Bladder is unremarkable and measures 9.2 x 3.5 x 6.1 cm. Findings consistent with bicornuate uterus measuring 8.5 x 3.3 x 3.7 cm to the right horn and 8.1 x 3.2 x 3.4 cm to the left horn with 3.1 mm and 1.7 mm endometrial complex, respectively. No obvious retained products of conception are identified. Bilateral ovaries are normal in appearance and vascularity without evidence for torsion. Right ovary measures 4.0 x 1.6 x 3.6 cm; R I = 0.53. Left ovary measures 2.7 x 1.9 x 2.1 cm; R I = 0.59. Small amount of free fluid is nonspecific. IMPRESSION: Known bicornuate uterus. No evidence for retained products of conception or obvious abnormality. <Electronically signed by Igor Zhang > 10/27/20 [id number]
[2020-10-27] MEDS ORDERED: ACETAMINOPHEN TAB 650MG DOSE (2X325MG) PO PRN (18:35)
[2020-10-27] MEDS ORDERED: NS 500 ML IV ONE (21:00)
[2020-10-27] MEDS ORDERED: HumaLOG INSULIN (NovoLOG) PER UNIT SC SCH (21:00)
[2020-10-27] MEDS ORDERED: ACETAMINOPHEN *IV* 650 MG in IV 1 EA IV ONE (21:30)
[2020-10-27] MEDS ORDERED: LEVEMIR (INSULIN DETEMIR) 1 UNITS/0.01ML SC ONE (21:30)
[2020-10-28] MEDS ORDERED: KETOROLAC 30 MG/ML 1ML VIAL IV PRN (00:55)
[2020-10-28] MEDS: ONDANSETRON 4MG/2ML VIAL IV PRN ×2 (01:39→07:59)
[2020-10-28 06:00] VITALS: BP 118/72
[2020-10-28] MEDS: LEVEMIR (INSULIN DETEMIR) 1 UNITS/0.01ML SC SCH (07:58)
[2020-10-28] MEDS: HumaLOG INSULIN (NovoLOG) PER UNIT SC SCH ×2 (07:59→12:00)
[2020-10-28] MEDS ORDERED: ONDA4TAB6 PO (13:19)
[2020-10-28] MEDS ORDERED: ACET-683 PO (13:19)
--- NOTE | 2020-10-28 13:28 | DS.PDOC ---
Discharge Summary General Date of Admission Oct 27, 2020 at 00:31 Date of Discharge 10/28/2020 Attending Physician: KATIUSKA PHILLIP MD Discharge Summary PROCEDURES PERFORMED DURING STAY: None ADMITTING DIAGNOSES: DKA DISCHARGE DIAGNOSES: DKA Type 1 DM Recent miscarriage at 10w gestation COMPLICATIONS/CHIEF COMPLAINT: Dka, Sirs. HISTORY OF PRESENT ILLNESS: 20 yr old w DM1 diabetic, who recently had a miscarriage 10d prior to presentation at 10w gestation that was spontaneous without medical interventions, reporting that transport company manager is aware and plans for weekly quantitative hCG measurement, daily MJ user and recent vaper who presented with poor PO with nausea and generalized illness. HOSPITAL COURSE: Was found to be in DKA with hyperglycemia with ketosis and an anion gap with acidosis that was corrected with hydration, insulin gtt and electrolyte replacement. Now she is tolerating PO and is being discharged home with some ondansetron. Of note, she had leukocytosis that was likely reactive at presentation but given the recent spontaneous , I got a pelvic US that showed no retain products of conception and hCG level was down to 250. She is now tolerating PO and is being discharged home with close PCP and women's center follow up. DISCHARGE MEDICATIONS: Please see below. ALLERGIES: Please see below. PHYSICAL EXAMINATION ON DISCHARGE: VITAL SIGNS: Please see below. GENERAL APPEARANCE: NAD HEENT: NCAT, EOMI, MMM CARDIOVASCULAR: RRR, no m/r/g LUNGS: CTAB ABDOMEN: contour flat, normoactive bowel sounds, NTND, has slight discomfort with deep palpation INTEGUMENT: vitiligo and has multiple tattoos with very long fake nails NEUROLOGICAL: CN 3-12 grossly intact, speech not dysarthric, moving all extremities PSYCHIATRIC: A&O x 3 LABORATORY DATA: Please see below. IMAGING: Chest xray IMPRESSION: No acute pulmonary disease. Pelvic US: Bladder is unremarkable and measures 9.2 x 3.5 x 6.1 cm. Findings consistent with bicornuate uterus measuring 8.5 x 3.3 x 3.7 cm to the right horn and 8.1 x 3.2 x 3.4 cm to the left horn with 3.1 mm and 1.7 mm endometrial complex, respectively. No obvious retained products of conception are iden tified. Bilateral ovaries are normal in appearance and vascularity without evidence for torsion. Right ovary measures 4.0 x 1.6 x 3.6 cm; R I = 0.53. Left ovary measures 2.7 x 1.9 x 2.1 cm; R I = 0.59. Small amount of free fluid is nonspecific. IMPRESSION: Known bicornuate uterus. No evidence for retained products of conception or obvious abnormality. PROGNOSIS: Good ACTIVITY: As tolerated DIET: Consistent carb DISCHARGE PLAN: Home with close PCP and women's center follow up within 7d DISPOSITION: Home DISCHARGE INSTRUCTIONS: Home with close PCP and women's center follow up within 7d ITEMS TO FOLLOWUP ON ON OUTPATIENT: DKA N/V Post miscarriage women's center follow up DISCHARGE CONDITION: Stable TIME SPENT ON DISCHARGE: 36 minutes. Vital Signs/I&Os Vital Signs Date Time Temp Pulse Resp B/P (MAP) Pulse Ox O2 Delivery O2 Flow Rate FiO2 10/28/20 06:00 98.6 102 19 118/72 (87) 98 Room Air I&O- Last 24 Hours up to 6 AM 10/28/20 06:00 Intake Total 2108 ml Output Total 125 ml Balance 1983 ml Laboratory Data Labs 24H Laboratory Tests 2 10/27/20 13:51: Bedside Glucose (Misc Panel) 238H 10/27/20 15:46: Anion Gap 10, Glomerular Filtration Rate > 60.0, Calcium Level 8.6 10/27/20 17:08: Bedside Glucose (Misc Panel) 222H 10/27/20 20:11: Bedside Glucose (Misc Panel) 98 10/27/20 22:32: Bedside Glucose (Misc Panel) 161H 10/28/20 06:54: Bedside Glucose (Misc Panel) 203H 10/28/20 12:43: Bedside Glucose (Misc Panel) 157H CBC/BMP Laboratory Tests 10/27/20 15:46 FSBS Laboratory Tests Test 10/27/20 13:51 10/27/20 17:08 10/27/20 20:11 10/27/20 22:32 Range/Units Bedside Glucose (Misc Panel) 238 222 98 161 70-105 MG/DL Test 10/28/20 06:54 10/28/20 12:43 Range/Units Bedside Glucose (Misc Panel) 203 157 70-105 MG/DL Microbiology Microbiology 10/27/20 Blood Culture - Preliminary, Resulted No growth after 24 hours . All specim... 10/26/20 Urine Culture, Received Pending Discharge Medications Scheduled Insulin Glargine,Hum.rec.anlog (Lantus Solostar) 100 Unit/1 Ml Insuln.pen, 22 UNITS SC BID, (Reported) Insulin Human Lispro (Humalog) 100 Unit/1 Ml Vial, 1 DOSE SC AC, (Reported) SLIDING SCALE PER DEANNE (ALSO USES UNITS PER GRAM OF CARB DOSING THROUGHOUT THE DAY) Scheduled PRN Glucagon,Human Recombinant (Glucagon Emergency Kit) 1 Mg Kit, 1 MG IM ASDIRECTED PRN for LOW BLOOD SUGAR, (Reported) Allergies Coded Allergies: Pistachio (Verified Allergy, Unknown, 04/25/19) KATIUSKA PHILLIP MD Oct 28, 2020 13:28
[2020-10-28 13:53] LABS: HEMATOCRIT 35.4 % (36.0-47.0); HEMOGLOBIN 12.2 g/dl (12.0-15.5); MEAN CORPUSCULAR HEMOGLOBIN 26.9 pg (27.0-33.0); MEAN CORPUSCULAR HGB CONC 34.5 g/dl (32.0-36.5); MEAN CORPUSCULAR VOLUME 78.1 fl (80.0-96.0); PLATELET COUNT, AUTOMATED 420 10^3/uL (150-450); RED BLOOD COUNT 4.53 10^6/uL (4.00-5.40); WHITE BLOOD COUNT 12.9 10^3/uL (4.0-10.0)
[2020-10-28 14:00] VITALS: BP 108/60
[2020-10-28 14:41] LABS: BLOOD UREA NITROGEN 5 MG/DL (7-18); CARBON DIOXIDE LEVEL 21 MEQ/L (21-32); CHLORIDE LEVEL 110 MEQ/L (98-107); CREATININE FOR GFR 0.39 MG/DL (0.55-1.30); GLOMERULAR FILTRATION RATE > 60.0 (>60); GLUCOSE, FASTING 152 MG/DL (70-100); POTASSIUM SERUM 3.2 MEQ/L (3.5-5.1); SODIUM LEVEL 138 MEQ/L (136-145)
== END 2020-10-28 15:24 | disposition home or self-care (01) | DRG 639 ==
LOC: M ED 17:25 → EEVIPCON 17:25 → M ED INP 10-27 00:31 → ENRESERV 10-27 01:50 → M ICU 10-27 03:25 → M MSPAV 10-27 19:50
PROVIDERS: ADMIT Internal Medicine; ATTEND Internal Medicine
DX: E10.10 Type 1 diabetes mellitus with ketoacidosis without coma (principal); Z91.010 Allergy to peanuts; Z79.4 Long term (current) use of insulin; E87.6 Hypokalemia; E83.42 Hypomagnesemia; E83.39 Other disorders of phosphorus metabolism

== ENCOUNTER 2020-10-30 11:28 | Inpatient (IN) | payer OTHER ==
[~2020-10-30] VITALS: Ht 157.5 cm; Wt 53.3 kg
[~2020-10-30 11:28] MED LIST changes: +ONDA4TAB6 PO
[2020-10-30] MEDS ORDERED: NS 1,000 ML IV ONE ×2 (14:25→18:25)
[2020-10-30 15:50] LABS: VENOUS BASE EXCESS -7.2 (-2.0-2.0); VENOUS HCO3 18.2 MEQ/L (23.0-27.0); VENOUS O2 SATURATION 96.3 % (60.0-80.0); VENOUS PARTIAL PRESSURE CO2 36.8 mmHg (38.0-50.0); VENOUS PARTIAL PRESSURE O2 86.9 mmHg (30.0-50.0); VENOUS PH 7.313 UNITS (7.330-7.430); VENOUS STANDARD HCO3 18.6 MEQ/L; VENOUS TOTAL CO2 19.4 MEQ/L (24.0-28.0)
[2020-10-30 15:52] LABS: BASO # 0.1 10^3/uL (0.0-0.2); BASO % 0.4 % (0.0-1.0); EOS # 0.1 10^3/uL (0.0-0.5); EOS % 0.6 % (0.0-3.0); HEMATOCRIT 34.8 % (36.0-47.0); HEMOGLOBIN 11.7 g/dl (12.0-15.5); LYMPH # 2.2 10^3/uL (1.5-5.0); LYMPH % 17.8 % (24.0-44.0); MEAN CORPUSCULAR HEMOGLOBIN 27.1 pg (27.0-33.0); MEAN CORPUSCULAR HGB CONC 33.6 g/dl (32.0-36.5); MEAN CORPUSCULAR VOLUME 80.6 fl (80.0-96.0); MONO # 1.4 10^3/uL (0.0-0.8); NEUTROPHILS # 8.3 10^3/uL (1.5-8.5); NEUTROPHILS % 68.8 % (36.0-66.0); PLATELET COUNT, AUTOMATED 435 10^3/uL (150-450); RED BLOOD COUNT 4.32 10^6/uL (4.00-5.40); WHITE BLOOD COUNT 12.1 10^3/uL (4.0-10.0)
[2020-10-30 16:23] LABS: ACETONE/KETONE 39.17 MG/DL (<2.81)
[2020-10-30 16:24] LABS: HCG, SERUM QUALITATIVE POSITIVE (NEGATIVE)
[2020-10-30 16:52] LABS: HCG, SERUM QUANTITATIVE 135 MIU/ML
[2020-10-30] MEDS ORDERED: KETOROLAC 30 MG/ML 1ML VIAL IV ONE (18:25)
--- NOTE | 2020-10-30 19:50 | REPVR ---
PROCEDURE INFORMATION: Exam: CT Abdomen And Pelvis Without Contrast Exam date and time: 10/30/2020 7:09 PM Age: 20 years old Clinical indication: Abdominal pain; Flank; Left; Additional info: L flank pain, hematuria, RO stone TECHNIQUE: Imaging protocol: Computed tomography of the abdomen and pelvis without contrast. Axial, coronal and sagittal reformatted images were created and reviewed. Radiation optimization: All CT scans at this facility use at least one of these dose optimization techniques: automated exposure control; mA and/or kV adjustment per patient size (includes targeted exams where dose is matched to clinical indication); or iterative reconstruction. COMPARISON: CT ABD PELVIS W/O CONTRAST 06/28/2019 9:30 PM FINDINGS: Liver: Unremarkable. Gallbladder and bile ducts: No radiodense gallstones. No biliary ductal dilatation. Pancreas: Unremarkable. Spleen: Unremarkable. Adrenal glands: Normal. No mass. Kidneys and ureters: Mild bilateral hydroureter without hydronephrosis. Prominent left perinephric/periureteral stranding and edema. Stomach and bowel: No bowel wall thickening. No obstruction. No pneumatosis. Appendix: Normal. Intraperitoneal space: Trace nonspecific free pelvic fluid, likely physiologic and/or reactive. No organized fluid collection. No free air. Vasculature: Several calcifications in the region of the distal left ureter, measuring up to 6 mm, similar to prior and likely phleboliths. No aortic aneurysm. Lymph nodes: Small mesenteric lymph nodes, nonspecific in appearance. No pathologically enlarged lymph nodes. Urinary bladder: Mild urinary bladder distention. Reproductive: Unremarkable. Bones/joints: No acute osseous abnormality. Soft tissues: Unremarkable. IMPRESSION: 1. Prominent left perinephric/periureteral stranding and edema without hydronephrosis, raising concern for acute pyelonephritis, suboptimally evaluated without intravenous contrast. A recently passed stone could produce this appearance. 2. Mild bilateral hydroureter, likely secondary to the distended urinary bladder. 3. Additional findings, as above. Electronically signed by: Ranjan Bowie On 10/30/2020 19:49:33 PM
[2020-10-30 20:00] LABS: VENOUS BASE EXCESS -19.5 (-2.0-2.0); VENOUS HCO3 6.6 MEQ/L (23.0-27.0); VENOUS O2 SATURATION 93.8 % (60.0-80.0); VENOUS PARTIAL PRESSURE CO2 17.6 mmHg (38.0-50.0); VENOUS PARTIAL PRESSURE O2 80.9 mmHg (30.0-50.0); VENOUS TOTAL CO2 7.1 MEQ/L (24.0-28.0)
[2020-10-30 20:29] LABS: BLOOD UREA NITROGEN 4 MG/DL (7-18); CALCIUM LEVEL 7.5 MG/DL (8.5-10.1); CARBON DIOXIDE LEVEL 8 MEQ/L (21-32); CHLORIDE LEVEL 108 MEQ/L (98-107); GLOMERULAR FILTRATION RATE > 60.0 (>60); GLUCOSE, FASTING 404 MG/DL (70-100); POTASSIUM SERUM 3.9 MEQ/L (3.5-5.1); SODIUM LEVEL 137 MEQ/L (136-145)
[2020-10-30] MEDS ORDERED: INSULIN REGULAR IN 0.9 % NACL 100 UNIT in IV 1 EA IV SCH ×2 (20:55)
[2020-10-30] MEDS ORDERED: HumuLIN R (REGULAR) INSULIN (NovoLIN R) **100U/ML** PER UNIT IV ONE (20:55)
[2020-10-30] MEDS ORDERED: INSULIN IV RATE CHANGE DOCUMENTATION ML/HR XX SCH (20:55)
[2020-10-30] MEDS ORDERED: LEVEMIR (INSULIN DETEMIR) 1 UNITS/0.01ML SC SCH (21:00)
--- NOTE | 2020-10-30 21:41 | ECGEPIP ---
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
[2020-10-30] MEDS ORDERED: MORPHINE 2 MG/ML 1ML VIAL (J2270) IV ONE (21:55)
[2020-10-30] MEDS ORDERED: ONDANSETRON 4MG/2ML VIAL IV PRN (21:55)
[2020-10-30] MEDS ORDERED: KCL 20MEQ in NS 1000ML 1,000 ML IV SCH (21:55)
[2020-10-30] MEDS: INSULIN REGULAR IN 0.9 % NACL 100 UNIT in IV 1 EA IV SCH ×4 (22:18→23:41)
--- NOTE | 2020-10-30 23:00 | HPEPDOC ---
General Date of Admission Oct 30, 2020 at 11:29 Date of Service: Oct 30, 2020 Attending Physician: JEAN HENNESSY MD Chief Complaint The patient is a 20-year-old female admitted with a reason for visit of Dka (Diabetic Ketoacidoses). Source: Patient, Old records Exam Limitations: No limitations Timing/Duration: 24 hours (for fatigue), Day(s) (4 days for left flank pain; 7 days for frequent urination), Getting worse Severity: Severe Associated Symptoms: Fever, Nausea History of Present Illness is a very pleasant 20 year old female with several past DKA episodes presented to ED today due to left flank pain for 4 days and fatigue which started today upon awaken. She said upon awakening today, she felt decreased appetite, fatigue, and nausea. She has bilateral lower abdominal pain since her recent miscarriage. Her last dose of insulin was lantus solostar 22 units last night and reported she did not take any insulin today yet as she feels unwell since awaken; denies lack of insulin at home. She has decreased appetite and has not eaten any food today. She feels beyond stress due to her recent miscarriage. She smoked marijuana last night. She said that her left flank pain is constant sharp pain, worsening from 7/10 to 9/10. She received Toradol in ER which she did not find it helping the pain. She also reported frequent urinations and urinary urgency(more than 10 episodes daily)for a week as well as an episode of fever last night. Denies chills, dysuria, urinary retention. She has bilateral lower abdominal pain since her miscarriage Home Medications Scheduled Insulin Glargine,Hum.rec.anlog (Lantus Solostar) 100 Unit/1 Ml Insuln.pen, 22 UNITS SC BID, (Reported) Insulin Human Lispro (Humalog) 100 Unit/1 Ml Vial, 1 DOSE SC AC, (Reported) SLIDING SCALE PER DEANNE (ALSO USES UNITS PER GRAM OF CARB DOSING THROUGHOUT THE DAY) Scheduled PRN Acetaminophen (Tylenol Extra Strength) 500 Mg Tablet, 1,000 MG PO Q6H PRN for FEVER, (Reported) Glucagon,Human Recombinant (Glucagon Emergency Kit) 1 Mg Kit, 1 MG IM ASDIRECTED PRN for LOW BLOOD SUGAR, (Reported) Ondansetron (Ondansetron Odt) 4 Mg Tab.rapdis, 4 MG PO Q6H PRN for NAUSEA OR VOMITING, (Reported) Allergies Coded Allergies: Pistachio (Verified Allergy, Unknown, 04/25/19) Past Medical History Medical History Diabetes mellitus type 1 Frequent episodes of DKA Vitiligo CKD history of appendicitis s/p appendectomy 2006 Surgical History Appendectomy 2007 Root canal surgery 2009 Family History Denies history of diabetes mellitus in family Social History * Smoker: Denies Alcohol: Denies Drugs: marijuana Lives at home with boyfriend. Recently moved back from [place] and does not have a PCP yet. She smokes marijuna but denies any other recreational drugs A-FIB/CHADSVASC A-FIB History Current/History of A-Fib/PAF?: No Review of Systems Constitutional: Reports: Fever, Fatigue; Denies: Chills ENT: Denies: Sinus Congestion Skin: Reports: Other (Pos for vitiligo); Denies: Breakdown Pulmonary: Denies: Dyspnea, Cough Cardiovascular: Denies: Chest Pain, Palpitations Gastrointestinal: Reports: Nausea, Abdominal Pain (bilateral lower abdominal pain); Denies: Vomiting, Diarrhea, Constipation Genitourinary: Reports: Frequency; Denies: Dysuria, Incontinence Endocrine: Reports: Polyuria Neurological: Denies: Weakness, Numbness, Confusion Psych: Reports: Other Psych (Stressed) Other systems Mildly dry mucous membrane Physical Examination General Exam: Positive: Alert, Cooperative, No Acute Distress Eye Exam: Positive: PERRLA, EOMI; Negative: Sclera icteric ENT Exam: Positive: Atraumatic Neck Exam: Positive: Supple Chest Exam: Positive: Clear to auscultation, Normal air movement; Negative: Rales, Rhonchi, Wheezing Heart Exam: Positive: Rate Normal, Regular Rhythm, Normal S1, Normal S2; Negative: Murmurs Abdomen Exam: Positive: Normal bowel sounds, Soft; Negative: Tenderness Skin Exam: Positive: Nl turgor and temperature; Negative: Breakdown Neuro Exam: Positive: Normal Speech, Strength at 5/5 X4 ext, Normal Tone, Sensation Intact, Cranial Nerves 3-12 NL Psych Exam: Positive: Mental status NL, Memory Intact, Oriented x 3 Vital Signs Vital Signs Date Time Temp Pulse Resp B/P (MAP) Pulse Ox O2 Delivery O2 Flow Rate FiO2 10/30/20 15:12 98.5 91 18 112/72 (85) 100 Room Air Laboratory Data Labs 24H Laboratory Tests 2 10/30/20 14:30: Urine Color YELLOW, Urine Appearance CLEAR, Urine pH 5.0, Urine Specific [place] 1.018, Urine Protein 1+H, Urine Glucose (UA) 3+H, Urine Ketones 2+H, Urine Blood 1+H, Urine Nitrite NEGATIVE, Urine Bilirubin NEGATIVE, Urine Urobilinogen 0.2, Urine Leukocyte Esterase NEGATIVE, Urine WBC (Auto) 7H, Urine RBC (Auto) 1, Urine Hyaline Casts (Auto) 0, Urine Bacteria (Auto) NEGATIVE, Urine Squamous Epithelial Cells 1, Urine Sperm (Auto) 10/30/20 15:08: Immature Granulocyte % (Auto) 0.4, Neutrophils (%) (Auto) 68.8H, Lymphocytes (%) (Auto) 17.8L, Monocytes (%) (Auto) 12.0H, Eosinophils (%) (Auto) 0.6, Basophils (%) (Auto) 0.4, Neutrophils # (Auto) 8.3, Lymphocytes # (Auto) 2.2, Monocytes # (Auto) 1.4H, Eosinophils # (Auto) 0.1, Basophils # (Auto) 0.1, Nucleated Red Blood Cells % (auto) 0.0, Blood Gas Bicarbonate Standard 18.6, Venous Blood pH 7.313L, Venous Blood Partial Pressure CO2 36.8L, Venous Blood Partial Pressure O2 86.9H, Venous Blood Total Carbon Dioxide 19.4L, Venous Blood HCO3 18.2L, Venous Blood Oxygen Saturation 96.3H, Venous Blood Base Excess -7.2L, Human Chorionic Gonadotropin, Qual POSITIVEA, Human Chorionic Gonadotropin, Quant 135, B-Hydroxybutyrate 39.17H 10/30/20 15:43: POC Glucose (Misc Panel) 258H, POC Sodium (Misc Panel) 136, POC Potassium (Misc Panel) 3.5, POC Chloride (Misc Panel) 102, POC Total CO2 (Misc Panel) 17.0L, POC Blood Urea Nitrogen (Misc Panel 4L, POC Ionized Calcium (Misc Panel) 4.7, POC Creatinine (Misc Panel) 0.3L, POC Hematocrit (Misc Panel) 38.0 10/30/20 18:00: Bedside Glucose (Misc Panel) 326H 10/30/20 19:04: Blood Gas Bicarbonate Standard 10.0, Venous Blood pH 7.190L, Venous Blood Partial Pressure CO2 17.6L, Venous Blood Partial Pressure O2 80.9H, Venous Blood Total Carbon Dioxide 7.1L, Venous Blood HCO3 6.6L, Venous Blood Oxygen Saturation 93.8H, Venous Blood Base Excess -19.5L, Anion Gap 21H, Glomerular Filtration Rate > 60.0, Calcium Level 7.5L 10/30/20 22:13: Bedside Glucose (Misc Panel) 435H CBC/BMP Laboratory Tests 10/30/20 15:08 10/30/20 19:04 Assessment/Plan 1. DKA likely due to insulin deficiency vs cannabis use, rule out infectious etiology -ketosis, increased anion gap of 21, hyperglycemia of 404 upon admission. Bilateral lower abdominal pain -UA indicated no UTI; no CVA tenderness bilaterally. Blood cultureX2 ordered. -S/p 2 L of NS bolus and 5 units insulin IV in ER -ICU admission. Start Insulin drip. Plan to start D5 1/2NS when glucose <250 and transition to SC insulin. Plan overlapping of insulin drip and SC insulin for 2 hrs -K of 3.9 and mildly dry mucous membrane; start IV NS with 20meq KCl at 250ml/hr -No bicarb as PH >6.9 -BMP Q2H, POC glucose Q1H. Mg and Phos level Q6H, will replete PRN -Zofran and pain control as needed -PFS consult ordered for frequent DKA episodes and life stressors. Diabetes teaching 2. Left flank pain likely 2/2 perinephric/periureteral stranding likely from a recently passed kidney stone. -Abdomen/pelvis CT showed prominent left perinephric/periureteral stranding and edema with concerns for possible acute pyelonephritis vs a recently passed stone as well as mild bilateral hydroureter likely secondary to the distended urinary bladder -Patient denies urinary retention. No suprapubic tenderness or CVA tenderness bilaterally. No measured fever in-house. UA also indicated no UTI. Will continue to monitor, may start antibiotics for possible pyelonephritis if fever occurs again -Zofran and pain control as needed 3. Bilateral lower abdominal pain likely associated with recent miscarriage vs DKA -since mid/early october when she had the miscarriage -Positive HCG of 135, trended down from 235 since 3 days ago. Unlikely due to new given she had a pelvic US showed no active 3 days ago. If suspicion of is high or symptoms persist with DKA resolution, may consider repeating HCG next day and pelvis US in AM -pain control as needed DVT prophylaxis: SCD and TEDS GI prophylaxis: IV protonix All the above findings and plan were discussed with precepting attending on 10/30/20 Plan / VTE VTE Prophylaxis Ordered?: Yes GME ATTESTATION GME ATTESTATION My faculty preceptor for this patient encounter was physically present during the encounter and was fully available. All aspects of the patient interview, examination, medical decision making process, and medical care plan development were reviewed and approved by the faculty preceptor. The faculty preceptor is aware and concurs with the plan as stated in the body of this note and will attest to such by his/her cosignature. ATTENDING NOTE time of service 455am on Oct 31 I reviewed 's note and agree with the findings as documented. SANCHEZ QUEVEDO DO Oct 30, 2020 22:59 JEAN HENNESSY MD Oct 31, 2020 06:57
[2020-10-30 23:31] LABS: RSV AMPLIFICATION NEGATIVE (NEGATIVE)
[2020-10-30] MEDS ORDERED: ONDA4TAB6 PO (23:46)
[2020-10-30] MEDS ORDERED: ACET-897 PO (23:46)
[2020-10-30] MEDS ORDERED: HOME MED LIST COMPLETE! XX SCH (23:50)
[2020-10-31] VITALS (7 sets, daily range): BP systolic 94–121; BP diastolic 60–81
[2020-10-31 00:02] LABS: BLOOD UREA NITROGEN 3 MG/DL (7-18); CALCIUM LEVEL 7.8 MG/DL (8.5-10.1); CARBON DIOXIDE LEVEL 8 MEQ/L (21-32); CHLORIDE LEVEL 112 MEQ/L (98-107); CREATININE FOR GFR 0.76 MG/DL (0.55-1.30); GLOMERULAR FILTRATION RATE > 60.0 (>60); GLUCOSE, FASTING 348 MG/DL (70-100); MAGNESIUM LEVEL 1.7 MG/DL (1.8-2.4); PHOSPHORUS LEVEL 2.3 MG/DL (2.5-4.9); POTASSIUM SERUM 2.9 MEQ/L (3.5-5.1); SODIUM LEVEL 138 MEQ/L (136-145)
[2020-10-31] MEDS ORDERED: MAGNESIUM OXIDE 400MG TAB (MAG-OX) PO ONE (00:30)
[2020-10-31] MEDS ORDERED: GLUCAGON INJ 1MG VIAL SC PRN (00:40)
[2020-10-31] MEDS ORDERED: DEXTROSE 50% 50 ML SYRINGE IV PRN (00:40)
[2020-10-31] MEDS ORDERED: GLUCOSE 4GM CHEW TABLET PO PRN (00:40)
[2020-10-31] MEDS ORDERED: KCL 20MEQ IN 0.45NS 1000ML 1,000 ML IV SCH (01:00)
[2020-10-31] MEDS ORDERED: POTASSIUM CHLORIDE INJ 60 MEQ in NS 1,000 ML IV ONE (01:00)
[2020-10-31] MEDS ORDERED: KCL 10MEQ/100ML SWI (KRUN) 10 MEQ in IV 1 EA IV SCH (01:00)
--- NOTE | 2020-10-31 01:10 | TRANSCARE ---
Transition of Care: Transition of Care I was notified by ED nursing at 00:29AM of a critical value of K of 2.9 as well as due to difficulty of establishing a second IV line, the 20meq of KCl in NS was not started. She let me know the patient is going to the ICU now. Communicated with her that I have ordered K runs and to try again for establishing IV access for IV fluid; and that I have ordered to hold insulin drip due to hypokalemia. Insulin drip ordered to be held due to hypokalemia of 2.9. Ordered K runs and continuous telemetry monitoring due to electrolyte disturbance. Ordered 20meq of KCl 1/2NS at rate of 150ml/hr as patient's anion gap has closed and POC of 203. FSBS Q1H with hypoglycemia protocols. Mag of 1.7, and Mag Oxide 400mg was ordered. Discussed with ICU nursing about the orders for clarifications due to duplicate orders, and we will have potassium supplementation with IV and PO, 20meq of KCL 1/2NS order, and the order to hold insulin for the patient The above findings and plans were discussed with precepting attending around 1:20 AM. SANCHEZ QUEVEDO DO Oct 31, 2020 00:51
[2020-10-31] MEDS: KCL 20MEQ IN D5/0.45NS 1000ML 1,000 ML IV SCH ×3 (01:20→15:11)
[2020-10-31] MEDS ORDERED: POTASSIUM CHLORIDE 10 MEQ SR TABLET PO ONE (02:00)
[2020-10-31 03:33] LABS: BLOOD UREA NITROGEN 4 MG/DL (7-18); CALCIUM LEVEL 7.8 MG/DL (8.5-10.1); CARBON DIOXIDE LEVEL 14 MEQ/L (21-32); CHLORIDE LEVEL 113 MEQ/L (98-107); CREATININE FOR GFR 0.48 MG/DL (0.55-1.30); GLOMERULAR FILTRATION RATE > 60.0 (>60); GLUCOSE, FASTING 251 MG/DL (70-100); POTASSIUM SERUM 3.8 MEQ/L (3.5-5.1); SODIUM LEVEL 139 MEQ/L (136-145)
[2020-10-31] MEDS ORDERED: LEVEMIR (INSULIN DETEMIR) 1 UNITS/0.01ML SC SCH ×3 (04:00→09:00)
[2020-10-31] MEDS: INSULIN REGULAR IN 0.9 % NACL 100 UNIT in IV 1 EA IV SCH ×4 (04:52→06:55)
[2020-10-31] MEDS: MORPHINE 2 MG/ML 1ML VIAL (J2270) IV PRN ×3 (06:00→17:29)
[2020-10-31 06:07] LABS: HEMATOCRIT 34.2 % (36.0-47.0); MEAN CORPUSCULAR HEMOGLOBIN 26.6 pg (27.0-33.0); MEAN CORPUSCULAR HGB CONC 32.2 g/dl (32.0-36.5); MEAN CORPUSCULAR VOLUME 82.8 fl (80.0-96.0); PLATELET COUNT, AUTOMATED 400 10^3/uL (150-450); RED BLOOD COUNT 4.13 10^6/uL (4.00-5.40); WHITE BLOOD COUNT 8.5 10^3/uL (4.0-10.0)
[2020-10-31] MEDS: INSULIN IV RATE CHANGE DOCUMENTATION ML/HR XX SCH ×5 (06:13→15:17)
[2020-10-31 06:31] LABS: BLOOD UREA NITROGEN 3 MG/DL (7-18); CALCIUM LEVEL 8.3 MG/DL (8.5-10.1); CARBON DIOXIDE LEVEL 10 MEQ/L (21-32); CHLORIDE LEVEL 115 MEQ/L (98-107); CREATININE FOR GFR 0.67 MG/DL (0.55-1.30); GLOMERULAR FILTRATION RATE > 60.0 (>60); GLUCOSE, FASTING 252 MG/DL (70-100); MAGNESIUM LEVEL 1.6 MG/DL (1.8-2.4); PHOSPHORUS LEVEL 1.4 MG/DL (2.5-4.9); POTASSIUM SERUM 3.7 MEQ/L (3.5-5.1); SODIUM LEVEL 139 MEQ/L (136-145)
[2020-10-31 06:32] LABS: ERYTHROCYTE SEDIMENTATION RATE 58 mm/hr (0-20)
[2020-10-31] MEDS ORDERED: HumaLOG INSULIN (NovoLOG) PER UNIT SC SCH ×2 (07:30→21:00)
[2020-10-31] MEDS: PANTOPRAZOLE 40MG VIAL (C9113 PER 1) IV SCH (08:20)
[2020-10-31 08:44] LABS: BLOOD UREA NITROGEN 2 MG/DL (7-18); CALCIUM LEVEL 8.6 MG/DL (8.5-10.1); CARBON DIOXIDE LEVEL 18 MEQ/L (21-32); CHLORIDE LEVEL 114 MEQ/L (98-107); CREATININE FOR GFR 0.48 MG/DL (0.55-1.30); GLOMERULAR FILTRATION RATE > 60.0 (>60); GLUCOSE, FASTING 143 MG/DL (70-100); POTASSIUM SERUM 4.2 MEQ/L (3.5-5.1); SODIUM LEVEL 139 MEQ/L (136-145)
[2020-10-31] MEDS: ACETAMINOPHEN TAB 650MG DOSE (2X325MG) PO PRN ×2 (09:17→20:32)
[2020-10-31 10:51] LABS: BLOOD UREA NITROGEN 2 MG/DL (7-18); CALCIUM LEVEL 7.9 MG/DL (8.5-10.1); CARBON DIOXIDE LEVEL 17 MEQ/L (21-32); CHLORIDE LEVEL 112 MEQ/L (98-107); CREATININE FOR GFR 0.45 MG/DL (0.55-1.30); GLOMERULAR FILTRATION RATE > 60.0 (>60); GLUCOSE, FASTING 194 MG/DL (70-100); MAGNESIUM LEVEL 1.8 MG/DL (1.8-2.4); PHOSPHORUS LEVEL 2.3 MG/DL (2.5-4.9); POTASSIUM SERUM 4.5 MEQ/L (3.5-5.1); SODIUM LEVEL 137 MEQ/L (136-145)
[2020-10-31 12:17] LABS: FOLATE 12.7 NG/ML (>5.4)
[2020-10-31 14:37] LABS: BLOOD UREA NITROGEN 2 MG/DL (7-18); CARBON DIOXIDE LEVEL 15 MEQ/L (21-32); CHLORIDE LEVEL 112 MEQ/L (98-107); CREATININE FOR GFR 0.54 MG/DL (0.55-1.30); GLOMERULAR FILTRATION RATE > 60.0 (>60); GLUCOSE, FASTING 246 MG/DL (70-100); POTASSIUM SERUM 3.8 MEQ/L (3.5-5.1); SODIUM LEVEL 136 MEQ/L (136-145)
[2020-10-31 14:48] LABS: BLOOD UREA NITROGEN 2 MG/DL (7-18); CALCIUM LEVEL 8.5 MG/DL (8.5-10.1); CARBON DIOXIDE LEVEL 18 MEQ/L (21-32); CHLORIDE LEVEL 113 MEQ/L (98-107); GLOMERULAR FILTRATION RATE > 60.0 (>60); GLUCOSE, FASTING 209 MG/DL (70-100); POTASSIUM SERUM 3.7 MEQ/L (3.5-5.1); SODIUM LEVEL 137 MEQ/L (136-145)
[2020-10-31] MEDS ORDERED: LEVEMIR (INSULIN DETEMIR) 1 UNITS/0.01ML SC ONE (16:30)
[2020-10-31 16:35] LABS: BLOOD UREA NITROGEN 1 MG/DL (7-18); CARBON DIOXIDE LEVEL 19 MEQ/L (21-32); CHLORIDE LEVEL 111 MEQ/L (98-107); CREATININE FOR GFR 0.52 MG/DL (0.55-1.30); GLOMERULAR FILTRATION RATE > 60.0 (>60); GLUCOSE, FASTING 157 MG/DL (70-100); POTASSIUM SERUM 3.9 MEQ/L (3.5-5.1); SODIUM LEVEL 136 MEQ/L (136-145)
[2020-10-31 16:36] LABS: MAGNESIUM LEVEL 1.8 MG/DL (1.8-2.4); PHOSPHORUS LEVEL 2.2 MG/DL (2.5-4.9)
--- NOTE | 2020-10-31 17:39 | IPNPDOC ---
Subjective Date Seen The patient was seen on 10/31/20. Subjective Chief Complaint/HPI Mrs. Charles is a 20-year-old female with diabetes mellitus type 1 who is here for DKA. Overnight her gap closed but patient was still very acidotic. At 5:50 AM, her bicarb was 10. Continued with IV insulin. This morning she had an appetite. Denies any chest pain or dyspnea. This afternoon, she requested to eat again. Acidosis nearly resolved at 19. Will bridge to basal bolus insulin for dinner. Objective Physical Examination General Exam: Positive: Alert, Cooperative Eye Exam: Positive: EOMI; Negative: Sclera icteric ENT Exam: Positive: Atraumatic Neck Exam: Positive: Supple Chest Exam: Positive: Clear to auscultation, Normal air movement; Negative: Rales, Rhonchi, Wheezing Heart Exam: Positive: Rate Normal, Regular Rhythm Abdomen Exam: Positive: Normal bowel sounds, Soft; Negative: Tenderness Neuro Exam: Positive: Normal Speech Psych Exam: Positive: Anxiety Assessment /Plan Assessment Mrs. Charles is a 20-year-old female with diabetes mellitus type 1 who is here for DKA. Patient afebrile and leukocytosis has resolved without treatment. She may have had a stone that passed, but DKA most likely from insulin deficiency. Gap is closed and acidosis has almost resolved. Will bridge patient to basal bolus insulin. Plan/VTE VTE Prophylaxis Ordered?: Yes Plan 1. DKA in a type I diabetic Gap is closed and patient's acidosis has nearly resolved We will bridge to basal bolus insulin for dinner Patient normally on Levemir 22 units twice daily. Will give 22 units with dinner and next dose of Levemir will be in the morning Sliding scale insulin before every meal and at bedtime 2. Flank pain CT abdomen pelvis demonstrated left perinephric/periureteral stranding UA not indicated for UTI Patient may have passed stone No signs of infection at this time Supportive care 3. Recent miscarriage Mid/early October hCG downtrending 4. DVT prophylaxis SCDs and teds Disposition: Pending resolution of acidosis and ability to tolerate a diet. VS, I&O, 24H, Fishbone Vital Signs/I&O Vital Signs Date Time Temp Pulse Resp B/P (MAP) Pulse Ox O2 Delivery O2 Flow Rate FiO2 10/31/20 12:00 97.8 95 20 95/66 (76) 98 Room Air l I&O- Last 24 Hours up to 6 AM 10/31/20 06:00 Intake Total 2042 ml Output Total 800 ml Balance 1242 ml Laboratory Data 24H LABS Laboratory Tests 2 10/30/20 18:00: Bedside Glucose (Misc Panel) 326H 10/30/20 19:04: Blood Gas Bicarbonate Standard 10.0, Venous Blood pH 7.190L, Venous Blood Pa rtial Pressure CO2 17.6L, Venous Blood Partial Pressure O2 80.9H, Venous Blood Total Carbon Dioxide 7.1L, Venous Blood HCO3 6.6L, Venous Blood Oxygen Saturation 93.8H, Venous Blood Base Excess -19.5L, Anion Gap 21H, Glomerular Filtration Rate > 60.0, Calcium Level 7.5L 10/30/20 22:13: Bedside Glucose (Misc Panel) 435H 10/30/20 22:46: Coronavirus (COVID-19)(PCR) NEGATIVE, Influenza Type A (RT-PCR) NEGATIVE, Influenza Type B (RT-PCR) NEGATIVE, Respiratory Syncytial Virus (PCR) NEGATIVE 10/30/20 23:25: Anion Gap 18H, Glomerular Filtration Rate > 60.0, Calcium Level 7.8L, Phosphorus Level 2.3L, Magnesium Level 1.7L 10/30/20 23:32: Bedside Glucose (Misc Panel) 311H 10/31/20 00:34: Bedside Glucose (Misc Panel) 203H 10/31/20 02:20: Bedside Glucose (Misc Panel) 235H 10/31/20 02:24: Anion Gap 12, Glomerular Filtration Rate > 60.0, Calcium Level 7.8L, Iron Level 14L, Total Iron Binding Capacity 234L, Transferrin % Saturation 6.0L, Ferritin 95, Vitamin B12 Level 868, Folate 12.7 10/31/20 03:24: Bedside Glucose (Misc Panel) 290H 10/31/20 03:56: Bedside Glucose (Misc Panel) 295H 10/31/20 05:05: Bedside Glucose (Misc Panel) 284H 10/31/20 05:50: Nucleated Red Blood Cells % (auto) 0.0, Erythrocyte Sedimentation Rate 58H, Anion Gap 14, Glomerular Filtration Rate > 60.0, Calcium Level 8.3L, Phosphorus Level 1.4#L, Magnesium Level 1.6L, C-Reactive Protein, Quantitative 13.50H 10/31/20 06:09: Bedside Glucose (Misc Panel) 237H 10/31/20 06:53: Bedside Glucose (Misc Panel) 187H 10/31/20 07:59: Bedside Glucose (Misc Panel) 155H 10/31/20 08:01: Anion Gap 7L, Glomerular Filtration Rate > 60.0, Calcium Level 8.6 10/31/20 09:08: Bedside Glucose (Misc Panel) 97 10/31/20 10:07: Anion Gap 8, Glomerular Filtration Rate > 60.0, Calcium Level 7.9L, Phosphorus Level 2.3#L, Magnesium Level 1.8 10/31/20 10:20: Bedside Glucose (Misc Panel) 214H 10/31/20 11:08: Bedside Glucose (Misc Panel) 251H 10/31/20 12:06: Bedside Glucose (Misc Panel) 252H 10/31/20 12:21: Anion Gap 9, Glomerular Filtration Rate > 60.0, Calcium Level 8.0L 10/31/20 13:04: Bedside Glucose (Misc Panel) 230H 10/31/20 14:01: Anion Gap 6L, Glomerular Filtration Rate > 60.0, Calcium Level 8.5 10/31/20 14:17: Bedside Glucose (Misc Panel) 166H 10/31/20 15:09: Bedside Glucose (Misc Panel) 148H 10/31/20 15:56: Bedside Glucose (Misc Panel) 147H 10/31/20 15:57: Anion Gap 6L, Glomerular Filtration Rate > 60.0, Calcium Level 8.0L, Phosphorus Level 2.2L, Magnesium Level 1.8 CBC/BMP Laboratory Tests 10/30/20 19:04 10/30/20 23:25 10/31/20 02:24 10/31/20 05:50 10/31/20 08:01 10/31/20 10:07 10/31/20 12:21 10/31/20 14:01 10/31/20 15:57 Microbiology Microbiology 10/30/20 Blood Culture, Received Pending 10/30/20 Blood Culture, Received Pending AUNDREA WOLFE DO Oct 31, 2020 17:39
[2020-10-31] MEDS: HumaLOG INSULIN (NovoLOG) PER UNIT SC SCH ×2 (18:13→20:32)
[2020-10-31] MEDS ORDERED: NS 500 ML IV STA (20:58)
[2020-10-31] MEDS ORDERED: NS 1,500 ML IV ONE (21:05)
[2020-10-31] MEDS ORDERED: NS 1,000 ML IV ONE ×2 (21:11→22:30)
[2020-10-31 21:17] LABS: BLOOD UREA NITROGEN 2 MG/DL (7-18); CALCIUM LEVEL 8.3 MG/DL (8.5-10.1); CARBON DIOXIDE LEVEL 18 MEQ/L (21-32); CHLORIDE LEVEL 108 MEQ/L (98-107); CREATININE FOR GFR 0.34 MG/DL (0.55-1.30); GLOMERULAR FILTRATION RATE > 60.0 (>60); GLUCOSE, FASTING 231 MG/DL (70-100); POTASSIUM SERUM 3.7 MEQ/L (3.5-5.1); SODIUM LEVEL 133 MEQ/L (136-145)
[2020-10-31 21:37] LABS: VENOUS BASE EXCESS -5.3 (-2.0-2.0); VENOUS HCO3 18.2 MEQ/L (23.0-27.0); VENOUS O2 SATURATION 99.4 % (60.0-80.0); VENOUS PARTIAL PRESSURE CO2 29.3 mmHg (38.0-50.0); VENOUS PARTIAL PRESSURE O2 227.7 mmHg (30.0-50.0); VENOUS PH 7.411 UNITS (7.330-7.430); VENOUS STANDARD HCO3 20.2 MEQ/L; VENOUS TOTAL CO2 19.1 MEQ/L (24.0-28.0)
[2020-10-31 21:40] LABS: HEMATOCRIT 32.5 % (36.0-47.0); HEMOGLOBIN 11.1 g/dl (12.0-15.5); MEAN CORPUSCULAR HEMOGLOBIN 27.1 pg (27.0-33.0); MEAN CORPUSCULAR HGB CONC 34.2 g/dl (32.0-36.5); MEAN CORPUSCULAR VOLUME 79.5 fl (80.0-96.0); PLATELET COUNT, AUTOMATED 387 10^3/uL (150-450); RED BLOOD COUNT 4.09 10^6/uL (4.00-5.40); WHITE BLOOD COUNT 8.1 10^3/uL (4.0-10.0)
[2020-10-31] MEDS: cefTRIAXone SOD 1 GM in D5W MINI-BAG PLUS 50 ML IV SCH (21:46)
[2020-10-31 22:04] LABS: ERYTHROCYTE SEDIMENTATION RATE 56 mm/hr (0-20)
--- NOTE | 2020-10-31 22:19 | REPVR ---
PROCEDURE INFORMATION: Exam: XR Chest Exam date and time: 10/31/2020 9:35 PM Age: 20 years old Clinical indication: Other: Sepsis; Additional info: Sirs/sepsis TECHNIQUE: Imaging protocol: XR of the chest. Views: 1 view. COMPARISON: 1. CR Chest, 1 view 2020-10-26 17:57 2. CR Chest, 1 view 2020-07-09 09:28 3. CR PORTABLE CHEST X-RAY 2020-02-14 23:[address] ABD PELVIS W/O CONTRAST 2020-10-30 19:08 FINDINGS: Lungs: Trace effusions blunting the costophrenic sulci versus trace atelectasis . Pleural spaces: Unremarkable. No pleural effusion. No pneumothorax. Heart/Mediastinum: Unremarkable. No cardiomegaly. Bones/joints: Unremarkable. IMPRESSION: Trace effusions blunting the costophrenic sulci versus trace atelectasis . Electronically signed by: Yahir Arellano On 10/31/2020 22:19:10 PM
[2020-10-31] MEDS ORDERED: PIPERACILLIN/TAZOBACTAM SOD 4.5 GM in D5W MINI-BAG PLUS 50 ML IV ONE (22:40)
--- NOTE | 2020-10-31 23:04 | REPVR ---
PROCEDURE INFORMATION: Exam: US Nonobstetric Pelvis; Complete Exam date and time: 10/31/2020 10:39 PM Age: 20 years old Clinical indication: Abdominal pain; Other: Left flank; Additional info: Recent miscarriage, sirs/sepsis, left flank pain TECHNIQUE: Imaging protocol: Transabdominal pelvic nonobstetric ultrasound. Complete exam. Real time ultrasound with image documentation. COMPARISON: 1. US PELVIC NON-OB COMPLETE 2020-10-27 17:08 2. US PELVIC NON-OB COMPLETE 2017-09-19 22:50 FINDINGS: Uterus/cervix: Bicornuate appearing uterus. No masses. No intrauterine gestation. Endometrial thickness between 6-6.4 mm within the right and left side. Right adnexa: Ovary is normal. No mass. Normal blood flow. Left adnexa: Ovary is normal. No mass. Normal blood flow. Intraperitoneal space: Trace free fluid, likely physiologic. Urinary bladder: Normal. IMPRESSION: No acute findings. Electronically signed by: Yahir Arellano On 10/31/2020 23:04:18 PM
[2020-10-31] MEDS ORDERED: KCL 20MEQ in NS 1000ML 1,000 ML IV SCH (23:50)
[2020-11-01] VITALS (8 sets, daily range): BP systolic 110–168; BP diastolic 64–79
[2020-11-01] MEDS: CLINDAMYCIN 900 MG in IV 1 EA IV SCH ×4 (01:29→23:58)
[2020-11-01] MEDS: ENOXAPARIN 40MG/0.4ML SYRINGE (J1650 PER 10MG) SC SCH ×2 (01:29→20:48)
[2020-11-01] MEDS: MORPHINE 2 MG/ML 1ML VIAL (J2270) IV PRN ×2 (01:30→08:03)
[2020-11-01] MEDS ORDERED: PIPERACILLIN/TAZOBACTAM SOD 3.375 GM in D5W MINI-BAG PLUS 50 ML IV SCH (03:00)
[2020-11-01 03:19] LABS: GC DNA AMPLIFICATION NEGATIVE (NEGATIVE)
[2020-11-01] MEDS: ACETAMINOPHEN TAB 650MG DOSE (2X325MG) PO PRN (04:56)
[2020-11-01 05:06] LABS: HEMATOCRIT 31.7 % (36.0-47.0); HEMOGLOBIN 10.6 g/dl (12.0-15.5); MEAN CORPUSCULAR HEMOGLOBIN 26.8 pg (27.0-33.0); MEAN CORPUSCULAR HGB CONC 33.4 g/dl (32.0-36.5); MEAN CORPUSCULAR VOLUME 80.3 fl (80.0-96.0); PLATELET COUNT, AUTOMATED 399 10^3/uL (150-450); RED BLOOD COUNT 3.95 10^6/uL (4.00-5.40); WHITE BLOOD COUNT 8.1 10^3/uL (4.0-10.0)
[2020-11-01 05:27] LABS: BLOOD UREA NITROGEN 1 MG/DL (7-18); CALCIUM LEVEL 7.6 MG/DL (8.5-10.1); CARBON DIOXIDE LEVEL 20 MEQ/L (21-32); CHLORIDE LEVEL 113 MEQ/L (98-107); CREATININE FOR GFR 0.38 MG/DL (0.55-1.30); GLOMERULAR FILTRATION RATE > 60.0 (>60); GLUCOSE, FASTING 102 MG/DL (70-100); POTASSIUM SERUM 3.4 MEQ/L (3.5-5.1); SODIUM LEVEL 140 MEQ/L (136-145)
[2020-11-01] MEDS ORDERED: POTASSIUM CHLORIDE 10 MEQ SR TABLET PO ONE (07:00)
[2020-11-01 07:34] LABS: C REACTIVE PROTEIN QUANTITATIV 9.37 MG/DL (0.00-0.30)
[2020-11-01] MEDS: LEVEMIR (INSULIN DETEMIR) 1 UNITS/0.01ML SC SCH ×2 (08:36→20:47)
[2020-11-01] MEDS: HumaLOG INSULIN (NovoLOG) PER UNIT SC SCH ×4 (08:36→20:41)
[2020-11-01] MEDS: PRENATAL VITAMINS CHEWABLE TABLET PO SCH (08:36)
[2020-11-01] MEDS: LACTOBACILLUS ACIDOPHILUS CAP (BACID) PO SCH (08:37)
[2020-11-01] MEDS: PANTOPRAZOLE 40MG VIAL (C9113 PER 1) IV SCH (08:37)
[2020-11-01] MEDS: D5W/0.45% SODIUM CHLORIDE 1,000 ML IV SCH ×2 (09:57→23:54)
[2020-11-01] MEDS ORDERED: PERCOCET 5MG/325MG TAB PO PRN (12:05)
[2020-11-01] MEDS ORDERED: ACETAMINOPHEN TAB 650MG DOSE (2X325MG) PO PRN (12:05)
--- NOTE | 2020-11-01 14:51 | IPNPDOC ---
Subjective Date Seen The patient was seen on 11/01/20. Subjective Chief Complaint/HPI Mrs. Charles is a 20-year-old female with diabetes mellitus type 1 who is here for DKA. Overnight, she had two episode of fever and had sinus tachycardia. Most likely source is UTI. UA positive for nitrite and leukocyte esterase. Will order for US renal to look for pyelonephritis, nephrolithiasis, or hydronephrosis. Continue with current antibiotic regimen. Otherwise, this morning, she denies chest pain or dyspnea. She is tolerating a diet and denies nausea/vomiting. Objective Physical Examination General Exam: Positive: Alert, Cooperative Eye Exam: Positive: EOMI; Negative: Sclera icteric ENT Exam: Positive: Atraumatic Neck Exam: Positive: Supple Chest Exam: Positive: Clear to auscultation, Normal air movement; Negative: Rales, Rhonchi, Wheezing Heart Exam: Positive: Rate Normal, Regular Rhythm Abdomen Exam: Positive: Normal bowel sounds, Soft; Negative: Tenderness Neuro Exam: Positive: Normal Speech Psych Exam: Positive: Mental status NL, Mood NL Assessment /Plan Assessment Mrs. Charles is a 20-year-old female with diabetes mellitus type 1 who is here for DKA. Gap closed and acidosis about resolved. Tolerating a solid diet without difficulty. Otherwise, Patient developed fever and sinus tachycardia evening of 10/31/20. UA positive for nitrites and leuk esterase. Most likely sepsis from UTI. Pending urine cultures. Continue current antibiotics. Plan/VTE VTE Prophylaxis Ordered?: Yes Plan 1. DKA in a type I diabetic Gap is closed and patient's acidosis has nearly resolved Patient was bridged to Levemir 22units BID and sliding scale insulin -Tolerating diet 2. Sepsis 2/2 UTI -On evening of 10/31/20, patient had fever and sinus tachycardia -UA positive for nitrites and leukocyte esterase -On ceftriaxone and clindamycin day 1 -Continue probiotic -Will order US renal to look for pyelonephritis, nephrolithiasis, or hydronephrosis 3. Recent miscarriage Mid/early October hCG downtrending -US pelvis negative, but possibly a contributing factor to patient's sepsis -Continue clindamycin 4. DVT prophylaxis SCDs and teds Disposition: Pending clinical improvement, renal US, and urine culture VS, I&O, 24H, Fishbone Vital Signs/I&O Vital Signs Date Time Temp Pulse Resp B/P (MAP) Pulse Ox O2 Delivery O2 Flow Rate FiO2 11/01/20 12:54 18 11/01/20 12:24 110 11/01/20 11:57 97.3 127/79 (95) 90 Room Air I&O- Last 24 Hours up to 6 AM 11/01/20 06:00 Intake Total 5010 ml Output Total 2625 ml Balance 2385 ml Laboratory Data 24H LABS Laboratory Tests 2 10/31/20 15:09: Bedside Glucose (Misc Panel) 148H 10/31/20 15:56: Bedside Glucose (Misc Panel) 147H 10/31/20 15:57: Anion Gap 6L, Glomerular Filtration Rate > 60.0, Calcium Level 8.0L, Phosphorus Level 2.2L, Magnesium Level 1.8 10/31/20 17:49: Bedside Glucose (Misc Panel) 195H 10/31/20 20:22: Anion Gap 7L, Glomerular Filtration Rate > 60.0, Calcium Level 8.3L 10/31/20 20:27: Bedside Glucose (Misc Panel) 226H 10/31/20 21:26: Nucleated Red Blood Cells % (auto) 0.0, Erythrocyte Sedimentation Rate 56H, Blood Gas Bicarbonate Standard 20.2, Venous Blood pH 7.411, Venous Blood Partial Pressure CO2 29.3L, Venous Blood Partial Pressure O2 227.7H, Venous Blood Total Carbon Dioxide 19.1L, Venous Blood HCO3 18.2L, Venous Blood Oxygen Saturation 99.4H, Venous Blood Base Excess -5.3L, Lactic Acid Level 0.9, Human Chorionic Gonadotropin, Quant 89 10/31/20 21:30: Procalcitonin 4.61 10/31/20 22:15: Methicillin-Resist S.aureus DNA PCR NOT DETECTED 11/01/20 01:37: Urine Color YELLOW, Urine Appearance CLOUDYH, Urine pH 5.0, Urine Specific [place] 1.005, Urine Protein 1+H, Urine Glucose (UA) 3+H, Urine Ketones TRACEH, Urine Blood 1+H, Urine Nitrite POSITIVEH, Urine Bilirubin NEGATIVE, Urine Urobilinogen 0.2, Urine Leukocyte Esterase TRACEH, Urine WBC (Auto) 13H, Urine RBC (Auto) 4H, Urine Hyaline Casts (Auto) 0, Urine Bacteria (Auto) 1+H, Urine Squamous Epithelial Cells 6, Urine Amorphous Sediment SMALLH, Urine Mucus (Auto) SMALL, Urine Sperm (Auto) , Chlamydia trachomatis DNA (DMITRY) NEGATIVE, Neisseria gonorrhoeae DNA (DMITRY) NEGATIVE, Trichomonas vaginalis (PCR) NOT DETECTED 11/01/20 04:52: Nucleated Red Blood Cells % (auto) 0.0, Anion Gap 7L, Glomerular Filtration Rate > 60.0, Calcium Level 7.6L, C-Reactive Protein, Quantitative 9.37H 11/01/20 12:25: Bedside Glucose (Misc Panel) 98 CBC/BMP Laboratory Tests 10/31/20 15:57 10/31/20 20:22 10/31/20 21:26 11/01/20 04:52 Microbiology Microbiology 11/01/20 Urine Culture, Received Pending 10/31/20 Blood Culture, Received Pending 10/31/20 Blood Culture, Received Pending 10/30/20 Blood Culture - Preliminary, Resulted 10/30/20 Blood Culture - Preliminary, Resulted No growth after 24 hours . All specim... AUNDREA WOLFE DO Nov 01, 2020 14:51
--- NOTE | 2020-11-01 16:11 | REP ---
INDICATION: Sepsis 2/2 UTI, looking for pyelo, stones, or hydronephrosis. COMPARISON: 04/25/2019 TECHNIQUE: Real-time sonographic evaluation of the kidneys with Doppler FINDINGS: Multiple ultrasonographic images of the right kidney show the right kidney to measure 12.4 x 6.7 x 4.9 cm. The renal cortical echotexture is unremarkable. There are no masses. There is good corticomedullary differentiation. There is no hydronephrosis. There are no perinephric fluid collections. Multiple ultrasonographic images of the left kidney show the left kidney to measure 12.1 x 5.4 x 5.7 cm. The renal cortical echotexture is unremarkable. There are no masses. There is good corticomedullary differentiation. There is no hydronephrosis. There are no perinephric fluid collections. There is no evidence of urinary bladder abnormality. Doppler of the UV junction shows uro jet phenomena on the right. IMPRESSION: Unremarkable renal ultrasonography. There is no significant change compared to the prior exam. <Electronically signed by Satish Laguerre > 11/01/20 [id number]
[2020-11-01 17:01] LABS: BLOOD UREA NITROGEN < 1 MG/DL (7-18); CALCIUM LEVEL 8.3 MG/DL (8.5-10.1); CARBON DIOXIDE LEVEL 22 MEQ/L (21-32); CHLORIDE LEVEL 110 MEQ/L (98-107); CREATININE FOR GFR 0.44 MG/DL (0.55-1.30); GLOMERULAR FILTRATION RATE > 60.0 (>60); GLUCOSE, FASTING 169 MG/DL (70-100); POTASSIUM SERUM 3.6 MEQ/L (3.5-5.1); SODIUM LEVEL 138 MEQ/L (136-145)
[2020-11-01] MEDS: cefTRIAXone SOD 1 GM in D5W MINI-BAG PLUS 50 ML IV SCH (20:47)
[2020-11-02] VITALS: BP 125/75
[2020-11-02 04:00] VITALS: BP 118/67
[2020-11-02 05:33] LABS: HEMATOCRIT 30.3 % (36.0-47.0); MEAN CORPUSCULAR HEMOGLOBIN 26.7 pg (27.0-33.0); MEAN CORPUSCULAR VOLUME 80.8 fl (80.0-96.0); PLATELET COUNT, AUTOMATED 371 10^3/uL (150-450); RED BLOOD COUNT 3.75 10^6/uL (4.00-5.40); WHITE BLOOD COUNT 6.8 10^3/uL (4.0-10.0)
[2020-11-02 05:57] LABS: BLOOD UREA NITROGEN < 1 MG/DL (7-18); CALCIUM LEVEL 7.9 MG/DL (8.5-10.1); CARBON DIOXIDE LEVEL 23 MEQ/L (21-32); CHLORIDE LEVEL 111 MEQ/L (98-107); CREATININE FOR GFR 0.22 MG/DL (0.55-1.30); GLOMERULAR FILTRATION RATE > 60.0 (>60); GLUCOSE, FASTING 116 MG/DL (70-100); POTASSIUM SERUM 2.9 MEQ/L (3.5-5.1); SODIUM LEVEL 140 MEQ/L (136-145)
[2020-11-02] MEDS: POTASSIUM CHLORIDE 10% LIQ 20 MEQ/15 ML UDC PO SCH ×2 (07:04→09:09)
[2020-11-02 07:28] VITALS: BP 116/74
[2020-11-02] MEDS: HumaLOG INSULIN (NovoLOG) PER UNIT SC SCH ×4 (07:30→20:14)
[2020-11-02 08:27] LABS: MAGNESIUM LEVEL 1.8 MG/DL (1.8-2.4)
[2020-11-02] MEDS: PANTOPRAZOLE 40MG VIAL (C9113 PER 1) IV SCH (09:08)
[2020-11-02] MEDS: CLINDAMYCIN 900 MG in IV 1 EA IV SCH ×2 (09:08→16:58)
[2020-11-02] MEDS: LEVEMIR (INSULIN DETEMIR) 1 UNITS/0.01ML SC SCH ×2 (09:09→20:17)
[2020-11-02] MEDS: LACTOBACILLUS ACIDOPHILUS CAP (BACID) PO SCH (09:10)
[2020-11-02] MEDS: PRENATAL VITAMINS CHEWABLE TABLET PO SCH (09:10)
[2020-11-02 11:59] VITALS: BP 121/74
[2020-11-02 13:42] LABS: BLOOD UREA NITROGEN 1 MG/DL (7-18); CALCIUM LEVEL 8.3 MG/DL (8.5-10.1); CARBON DIOXIDE LEVEL 27 MEQ/L (21-32); CHLORIDE LEVEL 108 MEQ/L (98-107); CREATININE FOR GFR 0.32 MG/DL (0.55-1.30); GLOMERULAR FILTRATION RATE > 60.0 (>60); GLUCOSE, FASTING 133 MG/DL (70-100); SODIUM LEVEL 140 MEQ/L (136-145)
[2020-11-02] MEDS: D5W/0.45% SODIUM CHLORIDE 1,000 ML IV SCH (15:45)
[2020-11-02 16:10] VITALS: BP 98/68
--- NOTE | 2020-11-02 19:11 | IPNPDOC ---
Subjective Date Seen The patient was seen on 11/02/20. Subjective Chief Complaint/HPI Mrs. Charles is a 20-year-old female with diabetes mellitus type 1 who is here for DKA. Overnight, she had another fever. Otherwise, this morning, she denies any chest pain or dyspnea. She is tolerated food without issue. She is thinking about obtaining an insulin pump after discharge. Objective Physical Examination General Exam: Positive: Alert, Cooperative Eye Exam: Positive: EOMI; Negative: Sclera icteric ENT Exam: Positive: Atraumatic Neck Exam: Positive: Supple Chest Exam: Positive: Clear to auscultation, Normal air movement; Negative: Rales, Rhonchi, Wheezing Heart Exam: Positive: Rate Normal, Regular Rhythm Abdomen Exam: Positive: Normal bowel sounds, Soft; Negative: Tenderness Neuro Exam: Positive: Normal Speech Psych Exam: Positive: Mental status NL, Mood NL Assessment /Plan Assessment Mrs. Charles is a 20-year-old female with diabetes mellitus type 1 who is here for DKA. Gap closed and acidosis about resolved. Tolerating a solid diet without difficulty. Otherwise, Patient developed fever and sinus tachycardia evening of 10/31/20. UA positive for nitrites and leuk esterase. Most likely sepsis from UTI. Pending urine cultures. Continue current antibiotics. Plan/VTE VTE Prophylaxis Ordered?: Yes Plan 1. DKA in a type I diabetic Patient was bridged to Levemir 22units BID and sliding scale insulin -Tolerating diet -Resolved -Otherwise, patient was hypoglycemic the previous night. Will decrease Levemir to 15units BID 2. Sepsis 2/2 UTI -On evening of 10/31/20, patient had fever and sinus tachycardia -UA positive for nitrites and leukocyte esterase -On ceftriaxone and clindamycin day 2 -Continue probiotic -US renal negative for pyelonephritis, nephrolithiasis, or hydronephrosis 3. Recent miscarriage Mid/early October hCG downtrending -US pelvis negative, but possibly a contributing factor to patient's sepsis -Continue clindamycin 4. DVT prophylaxis SCDs and teds Disposition: Pending resolution of fevers and urine culture VS, I&O, 24H, Fishbone Vital Signs/I&O Vital Signs Date Time Temp Pulse Resp B/P (MAP) Pulse Ox O2 Delivery O2 Flow Rate FiO2 11/02/20 16:10 99.6 92 18 98/68 (78) 97 Room Air 8/26/21 04:00 118.0 I&O- Last 24 Hours up to 6 AM 11/02/20 06:00 Intake Total 890 ml Balance 890 ml Laboratory Data 24H LABS Laboratory Tests 2 11/01/20 20:40: Bedside Glucose (Misc Panel) 167H 11/02/20 01:28: Bedside Glucose (Misc Panel) 61L 11/02/20 04:00: Bedside Glucose (Misc Panel) 63L 11/02/20 05:12: Nucleated Red Blood Cells % (auto) 0.0, Anion Gap 6L, Glomerular Filtration Rate > 60.0, Calcium Level 7.9L, Magnesium Level 1.8 11/02/20 08:33: Bedside Glucose (Misc Panel) 112H 11/02/20 11:31: Bedside Glucose (Misc Panel) 158H 11/02/20 12:58: Anion Gap 5L, Glomerular Filtration Rate > 60.0, Calcium Level 8.3L 11/02/20 17:12: Bedside Glucose (Misc Panel) 176H CBC/BMP Laboratory Tests 11/02/20 05:12 11/02/20 12:58 Microbiology Microbiology 11/01/20 Urine Culture, Received Pending 10/31/20 Blood Culture - Preliminary, Resulted No growth after 24 hours . All specim... 10/31/20 Blood Culture - Preliminary, Resulted No growth after 24 hours . All specim... 10/30/20 Blood Culture - Preliminary, Resulted 10/30/20 Blood Culture - Preliminary, Resulted No Growth after 48 hours. All Specime... AUNDREA WOLFE DO Nov 02, 2020 19:11
[2020-11-02 20:00] VITALS: BP 116/78
[2020-11-02] MEDS: ENOXAPARIN 40MG/0.4ML SYRINGE (J1650 PER 10MG) SC SCH (20:16)
[2020-11-02] MEDS: cefTRIAXone SOD 1 GM in D5W MINI-BAG PLUS 50 ML IV SCH (20:17)
[2020-11-03] VITALS: BP 120/80
[2020-11-03] MEDS: CLINDAMYCIN 900 MG in IV 1 EA IV SCH ×2 (00:16→10:10)
[2020-11-03 04:00] VITALS: BP 104/70
[2020-11-03 05:03] LABS: HEMATOCRIT 29.9 % (36.0-47.0); HEMOGLOBIN 9.7 g/dl (12.0-15.5); MEAN CORPUSCULAR HEMOGLOBIN 26.2 pg (27.0-33.0); MEAN CORPUSCULAR HGB CONC 32.4 g/dl (32.0-36.5); MEAN CORPUSCULAR VOLUME 80.8 fl (80.0-96.0); PLATELET COUNT, AUTOMATED 341 10^3/uL (150-450); WHITE BLOOD COUNT 5.4 10^3/uL (4.0-10.0)
[2020-11-03 05:12] LABS: BLOOD UREA NITROGEN 2 MG/DL (7-18); CARBON DIOXIDE LEVEL 31 MEQ/L (21-32); CHLORIDE LEVEL 108 MEQ/L (98-107); CREATININE FOR GFR 0.32 MG/DL (0.55-1.30); GLOMERULAR FILTRATION RATE > 60.0 (>60); GLUCOSE, FASTING 62 MG/DL (70-100); POTASSIUM SERUM 4.1 MEQ/L (3.5-5.1); SODIUM LEVEL 144 MEQ/L (136-145)
[2020-11-03 05:13] LABS: CALCIUM LEVEL 8.3 MG/DL (8.5-10.1)
[2020-11-03] MEDS: HumaLOG INSULIN (NovoLOG) PER UNIT SC SCH (07:30)
[2020-11-03] MEDS: D5W/0.45% SODIUM CHLORIDE 1,000 ML IV SCH (07:45)
[2020-11-03 08:00] VITALS: BP_SYST 112; BP_SYST 180; BP_DIAS 100; BP_DIAS 64
[2020-11-03] MEDS: PANTOPRAZOLE 40MG VIAL (C9113 PER 1) IV SCH (09:00)
[2020-11-03] MEDS ORDERED: LANTINJ4 SC ×2 (09:19→09:26)
[2020-11-03] MEDS ORDERED: AUGM875T28 PO (09:20)
[2020-11-03] MEDS: LEVEMIR (INSULIN DETEMIR) 1 UNITS/0.01ML SC SCH (10:10)
[2020-11-03] MEDS: PRENATAL VITAMINS CHEWABLE TABLET PO SCH (10:11)
[2020-11-03] MEDS: LACTOBACILLUS ACIDOPHILUS CAP (BACID) PO SCH (10:11)
--- NOTE | 2020-11-03 22:39 | DS.PDOC ---
Discharge Summary General Date of Admission Oct 30, 2020 at 11:29 Date of Discharge Nov 03, 2020 Discharge Summary PROCEDURES PERFORMED DURING STAY: None ADMITTING DIAGNOSES: 1. DKA 2. Sepsis 3. Left pyelonephritis 3. Recent miscarriage DISCHARGE DIAGNOSES: 1. DKA 2. Sepsis 3. Left E.coli pyelonephritis 3. Recent miscarriage COMPLICATIONS/CHIEF COMPLAINT: Dka (Diabetic Ketoacidoses). HISTORY OF PRESENT ILLNESS: Copied from admitting provider's H&P " is a very pleasant 20 year old female with several past DKA episodes presented to ED today due to left flank pain for 4 days and fatigue which started today upon awaken. She said upon awakening today, she felt decreased appetite, fatigue, and nausea. She has bilateral lower abdominal pain since her recent miscarriage. Her last dose of insulin was lantus solostar 22 units last night and reported she did not take any insulin today yet as she feels unwell since awaken; denies lack of insulin at home. She has decreased appetite and has not eaten any food today. She feels beyond stress due to her recent miscarriage. She smoked marijuana last night. She said that her left flank pain is constant sharp pain, worsening from 7/10 to 9/10. She received Toradol in ER which she did not find it helping the pain. She also reported frequent urinations and urinary urgency(more than 10 episodes daily)for a week as well as an episode of fever last night. Denies chills, dysuria, urinary retention. She has bilateral lower abdominal pain since her miscarriage " HOSPITAL COURSE: During her hospitalization, she was put on an insulin drip. Her gap closed and her acidosis resolved. She was bridge back to Levemir 22u BID, and she did well with her consistent carb diet. She did have a few episodes of hypoglycemia while on Levemir 22u BID. She was decreased to Levemir 15u BID. Otherwise, she the developed a fever on 10/31/20. UA demonstrated nitrites and leuk esterase. Urine culture was obtained and she was put on empiric antibiotics. Her urine culture grew E. coli. Otherwise, blood cultures were also drawn. One of two blood cultures grew Staph hominis which is most likely a contaminant. When I spoke with patient this morning, she was feeling well. Denies chest pain, dyspnea, abdominal pain, or nausea. She was tolerating her breakfast well. She felt ready for home and was subsequently discharged home. DISCHARGE MEDICATIONS: Please see below. ALLERGIES: Please see below. PHYSICAL EXAMINATION ON DISCHARGE: VITAL SIGNS: Please see below. GENERAL: Comfortable, in no apparent distress HEENT: Head normocephalic, atraumatic NECK: Supple CARDIOVASCULAR EXAMINATION: Regular rate and rhythm RESPIRATORY EXAMINATION: Lungs clear to auscultation bilaterally ABDOMINAL EXAMINATION: Soft, non-tender, normal bowel sounds EXTREMITIES: No pitting edema bilaterally SKIN: Warm and dry NEUROLOGICAL EXAMINATION: CN 3-12 grossly intact PSYCHIATRIC EXAMINATION: Normal mood and affect LABORATORY DATA: Please see below. IMAGING: Radiologist interpretation CT abd/pelvis without contrast 1. Prominent left perinephric/periureteral stranding and edema without hydronephrosis, raising concern for acute pyelonephritis, suboptimally evaluated without intravenous contrast. A recently passed stone could produce this appearance. 2. Mild bilateral hydroureter, likely secondary to the distended urinary bladder. US pelvic No acute findings. PROGNOSIS: Good ACTIVITY: As tolerated. DIET: Carbohydrate consistent diet DISCHARGE PLAN: Home DISPOSITION: Home, Self-Care. DISCHARGE INSTRUCTIONS: 1. Follow up with PCP in 1 week 2. Take antibiotics to completion (Augmentin 875mg BID for 10 days) ITEMS TO FOLLOWUP ON ON OUTPATIENT: 1. Consider insulin pump DISCHARGE CONDITION: Stable Total time spent on discharge planning, discharge summary, and medication reconciliation: 45 minutes Vital Signs/I&Os Vital Signs Date Time Temp Pulse Resp B/P (MAP) Pulse Ox O2 Delivery O2 Flow Rate FiO2 11/03/20 08:00 97.5 87 16 112/64 (80) 94 Room Air 11/02/20 04:00 118.0 I&O- Last 24 Hours up to 6 AM 11/03/20 06:00 Intake Total 1640 ml Output Total 950 ml Balance 690 ml Laboratory Data Labs 24H Laboratory Tests 2 11/03/20 04:27: Nucleated Red Blood Cells % (auto) 0.0, Anion Gap 5L, Glomerular Filtration Rate > 60.0, Calcium Level 8.3L 11/03/20 04:32: Bedside Glucose (Misc Panel) 63L 11/03/20 04:49: Bedside Glucose (Misc Panel) 91 11/03/20 07:58: Bedside Glucose (Misc Panel) 87 CBC/BMP Laboratory Tests 11/03/20 04:27 FSBS Laboratory Tests Test 11/03/20 04:32 11/03/20 04:49 11/03/20 07:58 Range/Units Bedside Glucose (Misc Panel) 63 91 87 70-105 MG/DL Microbiology Microbiology 11/01/20 Urine Culture - Final, Complete Escherichia Coli 10/31/20 Blood Culture - Preliminary, Resulted No Growth after 72 hours. All specime... 10/31/20 Blood Culture - Preliminary, Resulted No Growth after 72 hours. All specime... 10/30/20 Blood Culture - Final, Complete Staphylococcus Hominis Ssp Santiago 10/30/20 Blood Culture - Preliminary, Resulted No Growth after 72 hours. All specime... Discharge Medications Scheduled Amoxicillin/Potassium Clav (Augmentin 875-125 Tablet) 1 Each Tablet, 1 TAB PO BID Insulin Glargine,Hum.rec.anlog (Lantus Solostar) 100 Unit/1 Ml Insuln.pen, 15 UNITS SC BID Insulin Human Lispro (Humalog) 100 Unit/1 Ml Vial, 1 DOSE SC AC, (Reported) SLIDING SCALE PER DEANNE (ALSO USES UNITS PER GRAM OF CARB DOSING THROUGHOUT THE DAY) Scheduled PRN Acetaminophen (Tylenol Extra Strength) 500 Mg Tablet, 1,000 MG PO Q6H PRN for FEVER, (Reported) Glucagon,Human Recombinant (Glucagon Emergency Kit) 1 Mg Kit, 1 MG IM ASDIRECTED PRN for LOW BLOOD SUGAR, (Reported) Ondansetron (Ondansetron Odt) 4 Mg Tab.rapdis, 4 MG PO Q6H PRN for NAUSEA OR VOMITING, (Reported) Allergies Coded Allergies: Pistachio (Verified Allergy, Unknown, 04/25/19) AUNDREA WOLFE DO Nov 03, 2020 22:39
== END 2020-11-03 12:50 | disposition home or self-care (01) | DRG 871 ==
LOC: M ED 11:28 → M ED INP 11:29 → ENRESERV 23:35 → M ICU 10-31 00:26 → M PCU 11-01 11:45
PROVIDERS: ADMIT Internal Medicine; ATTEND Internal Medicine
DX: A41.9 Sepsis, unspecified organism (principal); E10.10 Type 1 diabetes mellitus with ketoacidosis without coma; N12 Tubulo-interstitial nephritis, not specified as acute or chronic; N39.0 Urinary tract infection, site not specified; Z79.4 Long term (current) use of insulin; Z91.018 Allergy to other foods; F12.10 Cannabis abuse, uncomplicated; E87.6 Hypokalemia; B96.20 Unspecified Escherichia coli [E. coli] as the cause of diseases classified elsewhere; Z20.822 Contact with and (suspected) exposure to COVID-19

== ENCOUNTER 2020-12-01 13:05 | Emergency (ER) | payer OTHER ==
[~2020-12-01] VITALS: Ht 160 cm; Wt 42.1 kg
[~2020-12-01 13:05] MED LIST changes: +ACET-897 PO; +AUGM875T28 PO
[2020-12-01] MEDS ORDERED: NS 1,000 ML IV ONE (13:40)
[2020-12-01 14:53] LABS: BASO # 0.1 10^3/uL (0.0-0.2); BASO % 0.9 % (0.0-1.0); EOS # 0.1 10^3/uL (0.0-0.5); EOS % 2.1 % (0.0-3.0); HEMATOCRIT 40.2 % (36.0-47.0); HEMOGLOBIN 13.4 g/dl (12.0-15.5); LYMPH # 1.4 10^3/uL (1.5-5.0); LYMPH % 24.4 % (24.0-44.0); MEAN CORPUSCULAR HGB CONC 33.3 g/dl (32.0-36.5); MEAN CORPUSCULAR VOLUME 80.9 fl (80.0-96.0); MONO # 0.6 10^3/uL (0.0-0.8); MONO % 10.1 % (2.0-8.0); NEUTROPHILS # 3.6 10^3/uL (1.5-8.5); PLATELET COUNT, AUTOMATED 434 10^3/uL (150-450); RED BLOOD COUNT 4.97 10^6/uL (4.00-5.40); WHITE BLOOD COUNT 5.9 10^3/uL (4.0-10.0)
[2020-12-01 15:22] LABS: BLOOD UREA NITROGEN 6 MG/DL (7-18); CALCIUM LEVEL 10.1 MG/DL (8.5-10.1); CARBON DIOXIDE LEVEL 26 MEQ/L (21-32); CHLORIDE LEVEL 93 MEQ/L (98-107); CREATININE FOR GFR 0.63 MG/DL (0.55-1.30); GLOMERULAR FILTRATION RATE > 60.0 (>60); GLUCOSE, FASTING 320 MG/DL (70-100); POTASSIUM SERUM 4.2 MEQ/L (3.5-5.1); SODIUM LEVEL 132 MEQ/L (136-145)
[2020-12-01 17:02] LABS: URINE PREG TEST NEGATIVE (NEGATIVE)
[2020-12-01] MEDS ORDERED: CIPR-249 PO (17:13)
[2020-12-01] MEDS ORDERED: CIPROFLOXACIN 500MG TABLET PO ONE (17:15)
[2020-12-01 17:35] VITALS: BP 135/77
== END 2020-12-01 17:42 | disposition home or self-care (01) ==
LOC: M ED 13:05
DX: E11.65 Type 2 diabetes mellitus with hyperglycemia (principal); N39.0 Urinary tract infection, site not specified; K21.9 Gastro-esophageal reflux disease without esophagitis; Z79.4 Long term (current) use of insulin; Z79.899 Other long term (current) drug therapy; Z91.010 Allergy to peanuts

== ENCOUNTER 2021-01-11 13:12 | Emergency (ER) | payer OTHER, SELFPAY ==
[~2021-01-11] VITALS: Ht 157.5 cm; Wt 44.2 kg
[~2021-01-11 13:12] MED LIST changes: +CIPR-249 PO
[2021-01-11 13:52] LABS: VENOUS BASE EXCESS -3.4 (-2.0-2.0); VENOUS HCO3 22.3 MEQ/L (23.0-27.0); VENOUS O2 SATURATION 89.6 % (60.0-80.0); VENOUS PARTIAL PRESSURE CO2 42.6 mmHg (38.0-50.0); VENOUS PARTIAL PRESSURE O2 61.6 mmHg (30.0-50.0); VENOUS PH 7.337 UNITS (7.330-7.430); VENOUS STANDARD HCO3 21.5 MEQ/L; VENOUS TOTAL CO2 23.6 MEQ/L (24.0-28.0)
--- OUTSIDE RECORDS SUMMARY | 2021-01-11 13:54 | CCD ---
Author Author [facility] Organization [facility] Address Unknown Phone Unavailable Care Team Providers Care Guest Relations Manager Name Role Phone NO, PCP Unavailable Unavailable Patrick Raymond MD Unavailable Unavailable Madni H R Redd ZHAO Unavailable Unavailable Patrick Raymond MD Unavailable Unavailable Patrick Raymond MD Unavailable Unavailable Mandi H R Redd ZHAO Unavailable Unavailable Patrick Raymond MD Unavailable Unavailable Patrick Raymond MD Unavailable Unavailable Mandi H R Redd ZHAO Unavailable Unavailable Mandi, H R Redd MD Unavailable Unavailable Mandi, H R Redd MD Unavailable Unavailable Mandi, H R Redd MD Unavailable Unavailable Mandi, H R Redd MD Unavailable Unavailable Mandi, H R Redd MD Unavailable Unavailable Mandi, H R Redd MD Unavailable Unavailable Mandi, H R Redd MD Unavailable Unavailable Mandi, H R Redd MD Unavailable Unavailable Mandi, H R Redd MD Unavailable Unavailable Mandi, H R Redd MD Unavailable Unavailable Mandi, H R Redd MD Unavailable Unavailable Mandi, H R Redd MD Unavailable Unavailable Mandi, H R Redd MD Unavailable Unavailable Mandi, H R Redd MD Unavailable Unavailable Mandi, H R Redd Unavailable Unavailable Dimas Escobar MD Unavailable Unavailable Dimas Escobar MD Unavailable Unavailable Dimas Escobar MD Unavailable Unavailable Dimas Escobar MD Unavailable Unavailable Dimas Escobar MD Unavailable Unavailable Dimas Escobar MD Unavailable Unavailable ARNOLD, SANDY MARIBEL PA-C Unavailable Unavailable ARNOLD, SANDY MARIBEL PA-C Unavailable Unavailable ARNOLD, SANDY MARIBEL PA-C Unavailable Unavailable ARNOLD, SANDY MARIBEL PA-C Unavailable Unavailable ARNOLD, SANDY MARIBEL PA-C Unavailable Unavailable ARNOLD, SANDY MARIBEL PA-C Unavailable Unavailable ARNOLD, SANDY MARIBEL PA-C Unavailable Unavailable ARNOLD, SANDY MARIBEL PA-C Unavailable Unavailable ARNOLD, SANDY MARIBEL PA-C Unavailable Unavailable ARNOLD, SANDY MARIBEL PA-C Unavailable Unavailable ARNOLD, SANDY MARIBEL PA-C Unavailable Unavailable ARNOLD, SANDY MARIBEL PA-C Unavailable Unavailable ARNOLD, SANDY MARIBEL PA-C Unavailable Unavailable ARNOLD, SANDY MARIBEL PA-C Unavailable Unavailable ARNOLD, SANDY MARIBEL PA-C Unavailable Unavailable ARNOLD, SANDY MARIBEL PA-C Unavailable Unavailable ARNOLD, SANDY MARIBEL PA-C Unavailable Unavailable ARNOLD, SANDY MARIBEL PA-C Unavailable Unavailable ARNOLD, SANDY MARIBEL PA-C Unavailable Unavailable ARNOLD, SANDY MARIBEL PA-C Unavailable Unavailable ARNOLD, SANDY MARIBEL PA-C Unavailable Unavailable ARNOLD, SANDY MARIBEL PA-C Unavailable Unavailable ARNOLD, SANDY MARIBEL PA-C Unavailable Unavailable ARNOLD, SANDY MARIBEL PA-C Unavailable Unavailable ARNOLD, SANDY MARIBEL PA-C Unavailable Unavailable ARNOLD, SANDY MARIBEL PA-C Unavailable Unavailable SANDY JEFFRIES MARIBEL PA-C Unavailable Unavailable SANDY JEFFRIES MARIBEL PA-C Unavailable Unavailable ARNSANDY GALLARDO PA-C Unavailable Unavailable Veeravanallur Appuswamy, Kerry Unavailable Unavail able Veeravanallur Appuswamy, Kerry Unavailable Unavail able Veeravanallur Appuswamy, Kerry Unavailable Unavail able Veeravanallur Appuswamy, Kerry Unavailable Unavail able Re-disclosure Warning The records that you are about to access may contain information from federally-assisted alcohol or drug abuse programs. If such information is present, then the following federally mandated warning applies: This information has been disclosed to you from records protected by federal confidentiality rules (42 CFR part 2). The federal rules prohibit you from making any further disclosure of this information unless further disclosure is expressly permitted by the written consent of the person to whom it pertains or as otherwise permitted by 42 CFR part 2. A general authorization for the release of medical or other information is NOT sufficient for this purpose. The Federal rules restrict any use of the information to criminally investigate or prosecute any alcohol or drug abuse patient.The records that you are about to access may contain highly sensitive health information, the redisclosure of which is protected by Article 27-F of the [place] [facility] Public Health law. If you continue you may have access to information: Regarding HIV / AIDS; Provided by facilities licensed or operated by the [facility] Office of Mental Health; or Provided by the [facility] Office for People With Developmental Disabilities. If such information is present, then the following [facility] mandated warning applies: This information has been disclosed to you from confidential records which are protected by state law. State law prohibits you from making any further disclosure of this information without the specific written consent of the person to whom it pertains, or as otherwise permitted by law. Any unauthorized further disclosure in violation of state law may result in a fine or skilled nursing sentence or both. A general authorization for the release of medical or other information is NOT sufficient authorization for further disc losure. Family History Family Member Name Family Member Gender Family Member Status Date o f Status Description Data Source(s) Unknown Unknown Problem [facility] ([facility], ) Encounters Encounter Providers Location Date Indications Data Source(s ) Emergency Attender: Dimas Escobar MDConsultant: PCP NO 10/15/2020 11:18:00 PM EDT - 10/16/2020 02:24:00 AM EDT [facility] Patient discharged. Outpatient Attender: Redd Raymond MD 07/20/2020 12:00:00 A [facility] Outpatient Attender: Kerry Au Referrer: MARIBEL JEFFRIES PA-C 05/18/2020 12:00:00 AM [facility] Outpatient Attender: MARIBEL GARCESCReferrer: MARIBEL GALLARDO PA-C 02/17/2020 12:00:00 AM [facility] Outpatient Attender: MARIBEL JEFFRIES PA-C [id number] 11/12/2019 1 2:00:00 AM [facility] Medications Medication Brand Name Start Date Product Form Dose Route Admi nistrative Instructions Pharmacy Instructions Status Indications Reaction Description Data Source(s) 500 mg 12/01/2020 12:00:00 AM EDT tablet 13 TAKE ONE TABLET BY MOUTH TWICE A DAY TAKE ONE TABLET BY MOUTH TWICE A DAY SOLD: 12/01/2020 [facility] Amoxicillin 875 MG / Clavulanate 125 MG Oral Tablet 87 5-125 mg AMOXICILLIN/POTASSIUM CLAV 11/03/2020 12:00:00 AM EDT tablet 20 TAKE ONE TABLET BY MOUTH TWICE A DAY WITH FOOD FOR 10 DAYS TAKE ONE TABLET BY MOUTH TWICE A DAY WITH FOOD FOR 10 DAYS SOLD: 11/04/2020 [facility] 100 unit/mL 06/30/2020 12:00:00 AM EDT insulin pen 30 USE DIRECTED MAXIMUM DAILY DOSE = 75 UNITS USE DIRECTED MAXIMUM DAILY DOSE = 75 UNITS SOLD: 07/01/2020 [facility] URINE GLUCOSE-ACET TEST STRIP 03/20/2020 12:00:00 AM EST str ip 150 USE TO CHECK KETONES WHEN BLOOG GLUCOSE > 250MG OR ILLNESS MAXIMUM DAILY DOSE = 5 USE TO CHECK KETONES WHEN BLOOG GLUCOSE > 250MG OR ILLNESS MAXIMUM DAILY DOSE = 5 SOLD: 03/23/2020 [facility] 33 gauge 03/20/2020 12:00:00 AM EST misc 300 USE DIRECTED 8 TIMES DAILY USE DIRECTED 8 TIMES DAILY SOLD: 03/23/2020 [facility] 1 mg 03/20/2020 12:00:00 AM EST recon soln 2 USE DIRECTED FOR LOW BLOOD SUGAR USE DIRECTED FOR LOW BLOOD SUGAR SOLD: 03/23/2020 [facility] 31 gauge x 5/16" 03/20/2020 12:00:00 AM EST needle 300 USE DIRECTED USE TO INJECT INSULIN 6-8 TIMES DAILY USE DIRECTED USE TO INJECT INSULIN 6- 8 TIMES DAILY SOLD: 03/23/2020 [facility] 100 unit/mL (3 mL) 03/09/2020 12:00:00 AM EST insulin pen 15 INJECT 30 UNITS INTO THE SKIN EVERY MORNING INJECT 30 UNITS INTO THE SKIN EVERY MORNING SOLD: 03/09/2020 [facility] 140 mg (45 mg iron) 03/08/2020 12:00:00 AM EST tablet extend ed release 30 ONE BY MOUTH EVERY DAY WITH BREAKFAST ONE BY MOUTH EVERY DAY WITH BREAKFAST SOLD: 03/09/2020 [facility] 3 mg/actuation 03/02/2020 12:00:00 AM EST spray,non-aerosol 2 SPRAY 3MG IN ONE NOSTRIL TO TREAT SEVERE HYPOGLYCEMIA SPRAY 3MG IN ONE NOSTRIL TO TREAT SEVERE HYPOGLYCEMIA SOLD: 03/02/2020 [facility] BLOOD KETONE TEST, STRIPS 03/02/2020 12:00:00 AM EST strip 50 CHECK KETONES WHEN BLOOD GLUCOSE IS GREATER THAN 250 TWICE OR WHEN ILL. CALL IF 0.6 OR MORE CHECK KETONES WHEN BLOOD GLUCOSE IS GREATER THAN 250 TWICE OR WHEN ILL. CALL IF 0.6 OR MORE SOLD: 03/02/2020 [facility] 33 gauge 03/02/2020 12:00:00 AM EST misc 200 USE DIRECTED UP TO EIGHT TIMES DAILY USE DIRECTED UP TO EIGHT TIMES DAILY SOLD: 03/02/2020 [facility] 1 mg 03/02/2020 12:00:00 AM EST recon soln 2 USE PRESCRIBED FOR LOW BLOOD SUGAR USE PRESCRIBED FOR LOW BLOOD SUGAR SOLD: 03/02/2020 [facility] 31 gauge x 5/16" 03/02/2020 12:00:00 AM EST needle 200 USE DIRECTED . USE TO INJECT INSULIN 6 - 8 TIMES DAILY USE DIRECTED . USE TO INJECT INSULIN 6 - 8 TIMES DAILY SOLD: 03/02/2020 [facility] BLOOD SUGAR DIAGNOSTIC 03/02/2020 12:00:00 AM EST strip 200 USE TO TEST BLOOD GLUCOSES 6-8 TIMES PER DAY. USE TO TEST BLOOD GLUCOSES 6-8 TIMES PER DAY. SOLD: 03/02/2020 [facility] 100 unit/mL 03/02/2020 12:00:00 AM EST insulin pen 30 USE DIRECTED MAX DOSE 75 UNITS USE DIRECTED MAX DOSE 75 UNITS SOLD: 03/02/2020 [facility] 100 unit/mL 02/16/2020 12:00:00 AM EST insulin pen 15 INJECT DIRECTED MAXIMUM DAILY DOSE = 75 UNITS INJECT DIRECTED MAXIMUM DAILY DOSE = 75 UNITS SOLD: 03/01/2020 [facility] 140 mg (45 mg iron) 02/10/2020 12:00:00 AM EST tablet extend ed release 30 ONE BY MOUTH EVERY DAY WITH BREAKFAST ONE BY MOUTH EVERY DAY WITH BREAKFAST SOLD: 02/13/2020 [facility] 10 mg 02/04/2020 12:00:00 AM EST tablet 30 TAKE ONE TABLET BY MOUTH EVERY DAY TAKE ONE TABLET BY MOUTH EVERY DAY SOLD: 02/13/2020 [facility] 100 unit/mL 01/26/2020 12:00:00 AM EST insulin pen 15 USE DIRECTED MAXIMUM DAILY DOSE = 75 UNITS USE DIRECTED MAXIMUM DAILY DOSE = 75 UNITS SOLD: 02/13/2020 [facility] BLOOD SUGAR DIAGNOSTIC 11/13/2019 12:00:00 AM EDT strip 200 USE TO TEST BLOOD GLUCOSE 6-8 TIMES DAILY USE TO TEST BLOOD GLUCOSE 6-8 TIMES DAILY SOLD: 11/13/2019 [facility] In Vitro Strip 75148-666-18 11/12/2019 12:00:00 AM EDT active Long-term insulin useType 1 diabetes caio litus with nephropathyType 1 diabetes mellitus with hyperglycemia Use to test blood glucoses 6-8 times a day. 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 Type 1 diabetes mellitus with hyperglyce [facility] 100 unit/mL 11/11/2019 12:00:00 AM EDT insulin pen 15 USE DIRECTED MAXIMUM DAILY DOSE = 75 UNITS 1 BOX 20 DAYS USE DIRECTED MAXIMUM DAILY DOSE = 75 UNITS 1 BOX 20 DAYS SOLD: 11/13/2019 [facility] 100 unit/mL 11/11/2019 12:00:00 AM EDT insulin pen 15 USE DIRECTED MAXIMUM DAILY DOSE = 75 UNITS 1 BOX 20 DAYS USE DIRECTED MAXIMUM DAILY DOSE = 75 UNITS 1 BOX 20 DAYS SOLD: 01/14/2020 [facility] 33 gauge 11/10/2019 12:00:00 AM EDT misc 200 USE DIRECTED 8 TIMES DAILY USE DIRECTED 8 TIMES DAILY SOLD: 11/13/2019 [facility] 50 mcg (2,000 unit) 11/10/2019 12:00:00 AM EDT capsule 30 TAKE ONE CAPSULE BY MOUTH EVERY DAY TAKE ONE CAPSULE BY MOUTH EVERY DAY SOLD: 11/13/2019 [facility] Cholecalciferol 2000 UNT Oral Capsule Vitamin D3 50 MC G (1999 UT) Oral Capsule Vitamin D3 50 MCG (1999 UT) Oral Capsule 11/10/2019 12:00:00 AM EDT 2000 U Oral active Long-term insuli n useType 1 diabetes mellitus with hyperglycemiaVitamin D insufficiency Take 2,000 Units by russel daily [facility] Long-term insulin use Type 1 diabetes mellitus with hyperglyce lucero Vitamin D insufficiency Cholecalciferol 1999 UNT Oral Capsule Vitamin D3 50 MC G (1999 UT) Oral Capsule Vitamin D3 50 MCG (1999 UT) Oral Capsule 07/13/2019 12:00:00 AM EDT 2000 U Oral active Long-term insuli n useType 1 diabetes mellitus with hyperglycemiaVitamin D insufficiency Take 2,000 Units by russel daily [facility] Long-term insulin use Type 1 diabetes mellitus with hyperglyce lucero Vitamin D insufficiency atorvastatin 10 MG Oral Tablet Atorvastatin Calcium 10 MG Oral Tablet (Lipitor) Atorvastatin Calcium 10 MG Oral Tablet (Lipitor) 05/07/2019 12:00:00 AM EST 10 mg Oral active Hyperlipidemia, unspecified hy perlipidemia type Take 1 tablet by mouth every evening [facility] Hyperlipidemia, unspecified hyperlipidem ia type Glucagon 1 MG Injection Glucagon (rDNA) 1 MG Injection Kit ([facility] EMERG[facility]Y) Glucagon (rDNA) 1 MG Injection Kit (GLUCAGON EMERGENCY) 04/22/2019 12:00:00 AM EST active Type 1 mariam betes mellitus with hyperglycemiaLong-term insulin use Use as prescribed for low blood sugar [facility] Type 1 diabetes mellitus with hyperglyce lucero Long-term insulin use Insurance Providers Payer name Policy type / Coverage type Policy ID Covered green party ID Covered green party's relationship to parry Policy Parry Plan Information EXCELL H [id number] Self [id number] Self [id number] Self [id number] MEDICAID M [id number] Self [id number] MEDICAID M [id number] Self [id number] [facility] Managed Care Health Maintenance Organization (HMO) [id number] Self [id number] [facility] Managed Care Health Maintenance Organization (HMO) [id number] Self [id number] [facility] Managed Care Health Maintenance Organization (HMO) [id number] Self [id number] [facility] Managed Care Health Maintenance Organization (O) [id number] Self [id number] [facility] [id number] 82 [id number] [facility] Managed Care Health Maintenance Organization (HMO) [id number] Self [id number] [facility] Managed Care Health Maintenance Organization (O) [id number] Self [id number] [facility] Managed Care Health Maintenance Organization (O) [id number] Self [id number] [facility] Managed Care Health Maintenance Organization (HMO) [id number] Self [id number] [facility] Managed Care Health Maintenance Organization (O) [id number] Self [id number] [facility] MCDO [id number] SP [id number] MVP I [id number] Self [id number] MVP MCDHMO [id number] SP [id number] MVP MCDHMO [id number] SP [id number] [facility] U [id number] Self [id number] Health [facility] DySISmedical [id number] Family Dependent [id number] Medicaid-Pcap Medicaid [id number] 6.0 Self [id number] Medicaid Health Maintenance Organization (HMO) [id number] Self [id number] [facility] DySISmedical [id number] Family Dependent [id number] Medicaid-Pcap Medicaid [id number] .[id number]. [id number] Self [id number] [facility] DySISmedical [id number] Family Dependent [id number] Medicaid-Pcap Medicaid [id number] .[id number]. [id number] Self [id number] [facility] DySISmedical [id number] Family Dependent [id number] Medicaid-Pcap Medicaid [id number] .[id number]. [id number] Self [id number] [facility] DySISmedical [id number] Family Dependent [id number] Medicaid-Pcap Medicaid [id number] .[id number]. [id number] Self [id number] [facility] HEALTH CARE [id number] SP [id number] MVP Medicaid Health Maintenance Organization (HMO) [id number] 0 [id number] Self [id number] MVP Medicaid Health Maintenance Organization (HMO) [id number] Self [id number] MEDICAID [id number] SP [id number] Medicaid-Pcap Medicaid [id number]. [id number] Self [id number] [facility] DySISmedical [id number] Family Dependent [id number] Medicaid-Pcap Medicaid [id number] 04.25.830.1.493409.3.227.99. [id number] Self [id number] [facility] DySISmedical [id number] Family Dependent [id number] MEDICAID [id number] SP [id number] Medicaid-Pcap Medicaid [id number]9. [id number] Self [id number] [facility] DySISmedical [id number] Family Dependent [id number] Medicaid-Pcap Medicaid [id number] 04.25.830.1.467344.3.227.99. [id number] Self [id number] [facility] DySISmedical [id number] Family Dependent [id number] MEDICAID M [id number] S [id number] Medicaid-Pcap Medicaid [id number] Self [facility] Commercial [id number] Family Dependent Medicaid-[facility] Medicaid [id number] Self [id number] SELF PAY ONLY SELF PAY ONLY [id number] Self JOZEF GARCES SELF PAY ONLY SELF PAY ONLY SELF PAY ONLY [id number] Self JOZEF GARCES SELF PAY ONLY SELF PAY UNAVAILABLE SP UNAVAILA BLE [facility] [place] [id number] SF2 [id number] N REGIONAL CLAIMS ALISSA -O/P [id number] 19 [id number] [facility] [place] O [id number] S [id number] N REGIONAL CLAIMS [place]-CLINIC [id number] 19 [id number] N REGIONAL CLAIMS ALISSA-PHYSICIAN [id number] 19 [id number] WEST [id number] HU2 [id number] [place]AST HUMANA [id number] HU2 [id number] [place] HUMA[facility] - O/P [id number] 01 [id number] SELF PAY ONLY [id number] SP [id number] SELF PAY ONLY UNAVAILABLE SP UNAV AILABLE [facility] [id number] SP [id number] P MCDO [id number] SP [id number] P HEALTH CARE O [id number] S [id number] [facility] [id number] SP [id number] [facility] P [id number] S [id number] [facility] TRESSA [id number] SP [id number] [facility] Commercial [id number] Family Dependent [id number] [facility] [id number] Self [id number] Health [facility] [id number] Family Dependent [id number] Medicaid-[facility] Medicaid [id number] 6.0 Self [id number] [facility] [id number] Family Dependent [id number] Medicaid-[facility] Medicaid [id number] 6.0 Self [id number] Health [facility] [id number] Family Dependent [id number] Medicaid-Pcap Medicaid [id number] 6.0 Self [id number] Problems, Conditions, and Diagnoses Code Display Name Description Problem Type Effective Dates Data Source(s) Z794 nursing home (current) use of insulin nursing home (cu rrent) use of insulin Diagnosis 10/15/2020 11:18:00 PM EDT [facility] [id number] 10 weeks gestation of 10 weeks gestation of Diagnosis 10/15/2020 11:18:00 PM EDT [facility] E119 Type 2 diabetes mellitus without complic ations Type 2 diabetes mellitus without complications Diagnosis 10/15/2020 11:18:00 PM EDT [facility] [id number] Pre-existing type 2 diabetes mellitus, i n , first trimester Pre- existing type 2 diabetes mellitus, in , first trimester Diagnosis 10/15/2020 11:18:00 PM EDT [facility] O021 Missed Missed Diagnosis 10/15/2020 11:1 8:00 PM EDT [facility] O0339 Incomplete spontaneous with oth er complications Incomplete spontaneous with other complications Diagnosis 10/16/19 11:18:00 PM EDT [facility] O209 Hemorrhage in early , unspecifi ed Hemorrhage in early , unspecified Diagnosis 10/15/2020 11:18:00 PM EDT [facility] Surgeries/Procedures No Information Results ID Date Data Source [id number] 10/30/2020 10:46:00 PM EDT [facility] Name Value Range Interpretation Code Description Data Yen rce(s) Supporting Document(s) SARS coronavirus 2 RNA [Presence] in Res piratory specimen by DMITRY with probe detection NEGATIVE [facility] This lab was ordered by [facility] a nd reported by [employer] [employer]. ID Date Data Source [id number] 10/26/2020 11:52:00 PM EDT [facility] Name Value Range Interpretation Code Description Data Yen rce(s) Supporting Document(s) SARS coronavirus 2 RNA [Presence] in Res piratory specimen by DMITRY with probe detection NEGATIVE [facility] This lab was ordered by [facility] a nd reported by [facility]. ID Date Data Source [id number] 10/16/2020 09:20:00 AM EDT [facility] [address] [place] [address] PHONE: [phone] FAX: [phone] Name .................. : ALONZO JOZEF Frias Acct Number.................. : [id number] ROOM. ................. : TR-02 Number ................... : [id number] Stay type ............. : E/R Discharge Date......... ... : 10/16/20 Admit Date ......... : 10/15/20 Admit Phys .................... : AVERY May Date of ....... : 2000 Family Phys ................... : NO PCP Phone .................. : [phone] Age ................................ : 20 Film# .................. .:[id number] Sex ................................. : F Unsigned transcriptions are preliminary reports and do not represent a medical or legal document US OB 1ST TRI W TV IF NEEDED [id number] COMPLETE:10/16/20 01:19 ADB [id number] Reason(s): vaginal bleeding ULTRASOUND OBSTETRICAL FIRST TRIMESTER INDICATION: Vaginal bleeding. Per technologist patient reports 10 week 0 day based on outside ultrasound. COMPARISON: None Preliminary report for this exam was provided by [facility] . Findings were communicated at time of initial preliminary interpretation. FINDINGS: A single intrauterine gestation is identified. Gestational age estimate based on crown-rump length 25 mm. This would correspond to 9 weeks and 2 days . Due to early stage of gestation, amniotic fluid assessment is not possible. heart rate not detected Maternal uterus: No abnormalities identified. Ovaries not visualized. No gross indication of adnexal mass. IMPRESSION: demise. Electronically Reviewed and Signed By [address] [place] [address] PHONE: [phone] FAX: [phone] Name .................. : CLINTON Frias Acct Number.................. : [id number] ROOM. ................. : TR- Number ................... : [id number] Stay type ............. : E/R Discharge Date......... ... : 10/16/20 Admit Date ......... : 10/15/20 Admit Phys .................... : AVERY May Date of ....... : 2000 Family Phys ................... : NO PCP Phone .................. : [phone] Age ................................ : 20 Film# .................. .:[id number] Sex ................................. : F Unsigned transcriptions are preliminary reports and do not represent a medical or legal document US OB 1ST TRI W TV IF NEEDED [id number] COMPLETE:10/16/20 01:19 ADB [id number] Reason(s): vaginal bleeding Ermias Heredia MD , 10/16/20 09:20, SCB Transcribe Initials: SSR, Transcribe Date: 10/16/20 08:11, Dictation Date: Copy for: 710 MED REC DISCHARGED Page 2 of 2 Name Value Range Interpretation Code Description Data Yen rce(s) Supporting Document(s) ID Date Data Source [id number] 10/15/2020 11:18:00 PM EDT [facility] 1 OrderSheet [facility] Emergency Department [address] [place] [address] Phone #: ext- [phone] 10/15/2020 23:14 Patient: JOZEF ALONZO Sex: F : 2000 Age: 20yWEIGHT:49.8 kg (S) HEIGHT:62 inches (S) BMI:20.1ALLERGIES: NoneCHIEF COMPLAINT: vag bleedingDIAGNOSIS: , deathLAB ORDERSOrder Description Priority Entered Acknowledged InitialedCBC w Diff STAT 00:27 10/16/2020 00:36 Dimas Ascencio ; Nick RNCMP STAT 00:10/16/2020 00:36 Dimas Ascencio ; Nick CARROLLUrinalysis (Clean STAT 00:10/16/2020 Ack'd: 02:23 Eder taylor Nick RNCatch) Dimas Escobar ; Cancelled: Unable to Collect 02:23 Yuri Romero RNHCG Serum Quant STAT 00:10/16/2020 00:36 Dimas Ascencio ; Nick CARROLLType Rh STAT 00:10/16/2020 00:36 Dimas Ascencio ; Nick CARROLLDIAGNOSTIC STUDY ORDERSOrder Description Priority Entered Acknowledged InitialedUS OB 1ST TRI W STAT 00:27 10/16/2020 00:45 StevenTV IF NEEDED Dimas Escobar ; Nick CARROLL(Oxygen?(No))(IV?(No)) Reason for Study: vaginal bleedingMEDICATION/IV/DRIP/FLUID ORDERSOrder Description Priority Entered Acknowledged InitialedGENERAL ORDERSOrder Description Priority Entered Acknowledged Initialed[Electronically signed by Yuri Romero RN (02:10/16/2020)][Electronically signed by Dimas Escobar (04:36 10/16/2020)][Electronically locked by Yuri Romero RN (02:10/16/2020)] Name Value Range Interpretation Code Description Data Yen rce(s) Supporting Document(s) ID Date Data Source [id number] 10/15/2020 11:18:00 PM EDT [facility] 1 Medication Reconciliation Report [facility] Emergency Department [address] [place] [address] Phone #: ext- [phone] 10/15/2020 23:14 Patient: JOZEF ALONZO Sex: F : 2000 Age: 20yWeight: 49.8 kgHeight/Length: 62 in.BMI: 20.1ALLERGIES: NoneThe patient's Home Medications are listed below:THE FOLLOWING MEDICATIONS NEED TO BE RECONCILED: Colt Crenshaw source(s) of the original Home Medication information:patientThe following Medications were given to the patient in the Emergency Department:None.The following Medications were prescribed to the patient:None. Name Value Range Interpretation Code Description Data [facility](s) Supporting Document(s) ID Date Data Source [id number] 10/15/2020 11:18:00 PM EDT [place] [address] Medication Administration Record [facility] Emergency Department [address] [place] [address] Phone #: ext- [phone] 10/15/2020 23:14 Patient: JOZEF ALONZO Sex: F : 2000 Age: 20yWeight: 49.8 kgHeight/Length: 62 inBMI: 20.1ALLERGIES: NoneDate/Time Medication Administered Medication Ordered Name Value Range Interpretation Code Description Data [facility](s) Supporting Document(s) ID Date Data Source [id number] 10/15/2020 11:18:00 PM EDT [facility] 1 General Instructions [facility] Emergency Department [address] [place] [address] Phone #: ext- [phone] 10/15/2020 23:14 Patient: JOZEF ALONZO Sex: F : 2000 Age: 20yIncomplete spontaneous .No complications. demise, less than 20 weeks gestation.INSTRUCTIONSWarnings: Further evaluation is necessary.GENERAL WARNINGS: Return or contact your physician immediately if your condition worsens orchanges unexpectedly, if not improving as expected, or if other problems arise.Understanding of the discharge instructions verbalized by patient and parent.Follow-up with: [facility], , , [address] [place] [address], [address] Follow up in two if not well. Call for an appointment. ADDITIONAL INFORMATIONMissed MiscarriageToday's exams show your has ended suddenly. This can be emotionally difficult. There islittle that can be done to change the way you feel. But understand that miscarriages are common.About 1 or 2 out of every [address] Some even end before you know you are. This happens for a number of reasons, and usually the cause is never known. It's importantyou know that it is not your fault. It didn't happen because you did anything wrong.Having sex or exercising does not cause a miscarriage. These activities are usually safe unless youhave pain or bleeding or your healthcare provider tells you to stop. Even minor falls won't cause amiscarriage. Miscarriages happen because things were not developing as they were supposed to.You still have some tissue from the in your uterus. Because of this, you may have somebleeding. It might be light spotting or as heavy as a period. You may also have some cramping.Usually all of the tissue will pass out by itself and nothing else needs to be done. But sometimestissue stays in the uterus. In that case, it must be removed to stop bleeding and prevent infection.After you have recovered, you should still be able to get again. But before trying, talk withyour healthcare provider. 2 General Instructions [facility] Emergency Department [address] [place], [place] [id number] Phone #: ext- [phone] 10/15/2020 23:14 Patient: JOZEF ALONZO Sex: Lloyd : 2000 Age: 20yHome careFollow these tips to take of yourself at home: You can go back to your normal activities if you don't have heavy bleeding or pain. You may have some cramping and bleeding, but it shouldn't be severe.Until the bleeding stops completely and to prevent infection: Don't have sex until your healthcare provider says it's OK Use sanitary napkins instead of tampons. Don't douche.Having a miscarriage can be very difficult emotionally. It's natural to feel sadness or grief. It may helpto talk about your feelings with family and friends, or with a counselor.Follow-up careFollow up with your healthcare provider, or as advised. You may pass tissue. If you seeanything, it may appear as a 1-inch or larger piece of garces or pink flesh. If tissue has not passedfrom your vagina within the next 5 days, you need to see your healthcare provider for another exam.To prevent infection in the uterus, your provider might need to take out the tissue by surgery. Or youmay be given medicine to take at home to help your body expel the rest of the tissue.If you had an ultrasound, a radiologist will review it. You will be told of any new findings that mayaffect your care.Call [phone] [phone] if you have: Severe pain and very heavy bleeding Severe lightheadedness, passing out, or fainting Rapid heart rate Trouble breathing Confusion or trouble waking upWhen to seek medical adviceCall your healthcare provider right away if any of these occur: Heavy bleeding. This means soaking 1 new pad an hour over 3 hours. 3 General Instructions [facility] Emergency Department [address] [place] [address] Phone #: puu- [phone] 10/15/2020 23:14 Patient: JOZEF ALONZO Sex: F : 2000 Age: 20y Foul-smelling vaginal discharge Fever of 100.4F (38C) or higher, or as directed by your healthcare provider Pain in your lower belly (abdomen) that gets worse Weakness or dizziness Passage of anything that resembles tissue. This would be pink or grayish membrane or solid material. Save the tissue in a clean container and bring it to your provider. [phone] [employer]. [address] [place] [address], [place] [address]. All rights reserved. This information is not intended as asubstitute for professional medical care. Always follow your healthcare professional's instructions. You have been given the following additional information: Missed Miscarriage(Electronically signed by Dimas Escobar 10/16/2020 04:36) Name Value Range Interpretation Code Description Data Yen rce(s) Supporting Document(s) ID Date Data Source [id number] 10/15/2020 11:18:00 PM EDT [facility] 1 Clinical Report - Nurses [facility] Emergency Department [address] [place] [address] Phone #: nrt- [phone] 10/15/2020 23:14 Patient: JOZEF ALONZO Sex: F : 2000 Age: 20yTRIAGEArrived by private vehicle. Historian: patient.Triage time: 23:16 10/15/2020. Acuity: LEVEL 3.Chief Complaint: (claims she is10 weeks and bleeding).Alert. No acute distress. (in pain).This started yesterday. No fever, weakness, cough, difficulty breathing or skin rash. Denies muscleaches.Treatment QUANTITATIVE SOFTWARE ENGINEER:None.GABBY COMA SCORE: 15- eyes open- spontaneous (4); best verbal response- oriented (5); bestmotor response- obeys commands (6). --23:27 10/15/20 Pina Fuller RN23:16 10/15/20. BP: 124/83 taken on the left arm, while lying. MAP: 96. HR: 106 (regular, normal rate andstrong). RR: 20 (regular, unlabored and normal). O2 saturation: 100% on room air. Temp: 98.4 F (oral).Pain level now: 12/17. --23:10/15/20 Pina Fuller RN.Weight: 49.8 kg stated. Height/Length: 62 inches Per Patient. BMI: 20.1. --23:10/15/20 Pina Fuller RN.MedicationsLantus. --23:10/15/20 Pina Fuller RN Humalog. --23:10/15/20 Pina Fuller RN.AllergiesNone. --23:10/15/20 Pina Fuller RN.Medication/allergy information source: the patient. --23:10/15/20 Pina Fuller RN.HistoryPAST MEDICAL HX: Diabetes mellitus. No history of hypertension, heart disease or lung disease.Immunizations: up-to-date. Last normal menstrual period- four months ago. Last oral intake by patientwas lunch. ( this patient has just returned from [place]).SURGERY HX: Appendectomy.SOCIAL HX: Never smoker. Drug use: marijuana. No alcohol use. She was offered HIV testing butdeclined and hepatitis C testing but declined. She has not traveled outside the [place] 2 Clinical Report - Nurses [facility] Emergency Department [address] [place] [address] Phone #: ext- [phone] 10/15/2020 23:14 Patient: JOZEF ALONZO Sex: F : 2000 Age: 20y Infectious disease exposure: No infectious disease exposure. SELF HARM ASSESSMENT: Self harm assessment was performed. The patient answered "no" to the question(s) "Have you recently felt down, depressed, or hopeless?", "Do you have thoughts of harming or killing yourself?", "Do you have a plan for harming or killing yourself?", "Have you recently had thoughts about harming or killing others?", "Do you have any dangerous items in your possession?", "Have you noticed less interest or pleasure in doing things?", "Are you here because you tried to hurt yourself?" and "Have you ever tried to hurt yourself before today?". ABUSE ASSESSMENT: Abuse history: reports abuse. (denies). Abuse assessment. denies. NUTRITIONAL RISK ASSESSMENT: The nutritional risk assessment revealed no deficiencies. FUNCTIONAL ASSESSMENT: Functional assessment: no impairments noted. LEARNING NEEDS ASSESSMENT: The learning needs assessment revealed no barriers. FALL RISK ASSESSMENT: Fall risk assessment completed. No risk factors identified. SKIN INTEGRITY ASSESSMENT: Skin integrity risk assessment completed. No skin integrity risk identified. --23:27 10/15/20 Pina Fuller RN. FAMILY HX: No significant family medical history. --00:51 10/16/20 Dimas Escobar.PHYSICAL ASSESSMENTGENERAL / NEURO / PSYCH: Alert. Oriented X 4. Appears in no acute distress.HEENT: Pupils equal, round and reactive to light. No facial asymmetry noted. Mucous membranes arepink.RESPIRATORY: Respirations not labored. Chest nontender. Breath sounds within normal limits.CVS: Normal sinus rhythm no juliana. Capillary refill less than 2 seconds. Pulses within normal limits.GI / : Abdomen soft and nontender and normal bowel sounds.SKIN: Skin intact. Skin is warm and dry. Normal skin turgor. --23:28 10/15/20 Pina Fuller RN.NURSING PROGRESS NOTES01:00 10/16/20. Head of bed elevated 30 degrees. Reassurance given to the patient. Call light placedin reach. Bed placed in lowest position. Brakes of bed on. Patient ready for evaluation- ED physiciannotified. --02:21 10/16/20 Yuri Romero RN.DISPOSITION / DISCHARGE Pfeifer Coma Scale: 15- eyes open- spontaneous (4); best verbal response- oriented (5); best motor response- obeys commands (6). Condition at departure: improved. No learning barriers present. Discharge instructions provided and reviewed with the patient. Reviewed referral to an burning supervisor and a clinic supervisor for followup. Patient verbalized understanding. Written instructions provided in Ethiopian. The patient was discharged home and accompanied by parent. She left ambulatory and via private 3 Clinical Report - Nurses [facility] Emergency Department [address] [place] [address] Phone #: ext- [phone] 10/15/2020 23:14 [id number] Sex: [facility] : 2000 Age: 20y vehicle. Parent driving. --02:20 10/16/20 Yuri Romero RN 02:17 10/16/20. BP: 118/64 (regular adult cuff) taken on the right arm, via an automated monitor, while lying. MAP: 82. HR: 82 (regular, normal rate and strong). RR: 16 (regular, unlabored and normal). O2 saturation: 98% on room air. Temp: 97.8 F (oral). Pain level now: 04/19. --02:20 10/16/20 Yuri Romero RN Departure time: 02:20 10/16/2020. --02:20 10/16/20 Yuri Romero RN.Locked/Released at 10/16/2020 02:24 by Yuri Romero RN Name Value Range Interpretation Code Description Data Yen rce(s) Supporting Document(s) ID Date Data Source [id number] 10/15/2020 11:18:00 PM EDT [facility] 1 Clinical Report - Physicians/Mid Levels [facility] Emergency Department [address] [place] [address] Phone #: ext- [phone] 10/15/2020 23:14 [id number] Sex[facility] F : 2000 Age: 20y Time Seen: 00:34 10/16/2020. Arrived- By private vehicle. Historian- patient.HISTORY OF PRESENT ILLNESS Chief Complaint: VAGINAL BLEEDING. This started yesterday and still present. It was abrupt in onset. The symptoms are described as moderate. Modifying factors. Not worsened by anything. The patient has had mild, crampy abdominal pain. No pelvic pain, vaginal pain, low back pain, pain with urination or urinary frequency. No urgency of urination. She has had irregular periods. Sexually active. (Started with spotting yesterday and now vaginal bleeding. Found out she was in July. Went to [facility] ED but was not seen after waiting 4 hours). Currently . Similar symptoms previously. None. Recent medical care: The patient was seen recently in the emergency department and hospitalized. ( Hospitalized in [place] for DKA two weeks ago).REVIEW OF SYSTEMSThe patient has had nausea. No vomiting, diarrhea, headache, sore throat or cough. No difficultybreathing, skin rash, enlarged lymph nodes, joint pain or fever. No sweats, cough, headache or difficultywith urination. The patient has had irregular periods and diabetic symptoms. All other systems reviewedand are negative.PAST HISTORYSee nurses notes. Diabetes mellitus. No history of ovarian cyst.SOCIAL HISTORYNo alcohol use.FAMILY HISTORYNo significant family medical history.ADDITIONAL NOTESThe nursing notes have been reviewed.PHYSICAL EXAMVital Signs: 10/15/2020 23:16 BP: lying 124/83. MAP: 96. HR: 106. RR: 20. O2 saturation: 100% on roomair. Temp: 98.4 F. Pain level now: 12/17.Appearance: Alert. Oriented X3. No acute distress.HEENT: Normal external inspection. 2 Clinical Report - Physicians/Mid Levels [facility] Emergency Department [address] [place] [address] Phone #: ext- [phone] 10/15/2020 23:14 Patient: JOZEF ALONZO [facility]#: [id number] Sex: F : 2000 Age: 20y ENT: Pharynx normal. Neck: Neck supple. CVS: Heart sounds normal. Respiratory: No respiratory distress. Breath sounds normal. Abdomen: Soft and nontender. No organomegaly. No mass. Back: Normal external inspection. Skin: Skin warm. Normal skin color. Normal skin turgor. Extremities: Extremities nontender. No lower extremity edema. Neuro: Oriented X 3. Mood/affect normal. No motor deficit.LABS, X-RAYS, AND EKGPelvic Sonogram: demise is present. No cardiac activity visualized. no heart beat. Nouterine fibroid. The study was interpreted by the radiologist.Laboratory Tests: CBC w Diff: (JAYMIE: 10/16/2020 00:43) ( MsgRcvd 10/16/2020 00:53) Final results Test Result Flag Units (Reference) CBC W/AUTOMATED DIFF COMPLETE BLOOD COUNT WBC 10.4 10/uL (4.2 - 11.0) RBC 4.39 10/uL (4.20 - 5.40) HEMOGLOBIN 12.1 g/dL (12.0 - 16.0) HEMATOCRIT 35.0 L % (37.0 - 47.0) MCV 79.7 L fL (81.0 - 101) MCH 27.6 pg (27.0 - 34.0) MCHC 34.6 g/dL (31.0 - 36.0) RDW 14.4 % (11.5 - 14.5) PLATELETS 375 10/uL (150 - 450) MPV 8.2 fL (7.4 - 10.4) NEUT 71.0 % (37.0 - 80.0) LYMPH 18.4 L % (25.0 - 40.0) MONO 9.4 H % (3.0 - 8.0) EOS 0.7 % (0.0 - 7.0) BASO 0.2 % (0.0 - 2.5) %IG 0.3 H % (0.0 - 0.0) %NRBC 0.0 % (0.0 - 0.0) #NEUT 7.39 H 10/uL (2.00 - 6.90) #LYMPH 1.91 10/uL (0.60 - 3.40) #MONO 0.98 H 10/uL (0.00 - 0.90) #EOS 0.07 10/uL (0.00 - 0.70) #BASO 0.02 10/uL (0.00 - 0.20) #IG 0.03 10/uL (0.00 - 0.10) #NRBC 0.00 10/uL (0.00 - 0.00) MANUAL DIFF NOT INDICATED RBC MORPH NOT INDICATED CMP: (JAYMIE: 10/16/2020 00:43) ( MsgRcvd 10/16/2020 01:25) Final results Test Result Flag Units (Reference) COMPREHENSIVE METABOLIC PANEL COMPREHENSIVE METABOLIC PANEL SODIUM 135 mEq/L (134 - 153) POTASSIUM 3.5 L mEq/L (3.6 - 5.0) CHLORIDE 100 mEq/L (98 - 107) 3 Clinical Report - Physicians/Mid Levels [facility] Emergency Department [address] [place] [address] Phone #: ext- [phone] 10/15/2020 23:14 Patient: JOZEF ALONZO Sex: F : 2000 Age: 20y CO2 23 MEQ/L (22 - 30) GLUCOSE 180 H MG/DL (70 - 99) BUN 4 L MG/DL (7 - 21) CREATININE <0.4 L MG/DL (0.7 - 1.5) BUN/CREAT 13 (8 - 27) TOTAL PROTEIN 6.2 L G/DL (6.3 - 8.2) ALBUMIN 3.7 L G/DL (3.9 - 5.0) GLOBULIN 2.5 GM/DL (2.4 - 3.2) A/G RATIO 1.5 (0.8 - 2.0) CALCIUM 9.3 MG/DL (8.4 - 10.2) TOTAL BILI <0.7 MG/DL (0.2 - 1.3) ALKALINE PHOS 92 U/L (38 - 126) SGOT/AST 11 U/L (5 - 40) SGPT/ALT 12 U/L (7 - 56) ANION GAP 12.0 mmol/L (8.0 - 16.0) AGE 20 yrs NON- AA GFR >60 mL/min AFR AMER GFR >60 mL/min Male GFR Interprentation 20-49 yrs >60 mL/min Normal 50-59 yrs >56 mL/min Normal 60-69 yrs >49 mL/min Normal 70-79yrs >42 mL/min Normal 80 and above >35 mL/min Normal Female GFR Interpretation 20-39 yrs >60 mL/min Normal 40-49 yrs >58 mL/min Normal 50-59 yrs >51 mL/min Normal 60-69 yrs >45 mL/min Normal 70-79 yrs >39 mL/min Normal 80 and above >32 mL/min Normal Beta-HCG, Quant Serum: (JAYMIE: 10/16/2020 00:43) ( MsgRcvd 10/16/2020 01:23) Final results Test Result Flag Units (Reference) HCG QUANT 96960.0 mIU/mL Interpretation: Less than 5 mU/mL: Negative 6-10 mU/mL: Borderline (suggest repeat in 48 hours) >10: Positive Approx HCG range (mU/mL) Weeks post LMP 5.4-708 mU/mL 3-4 Weeks 217-61813 mU/mL 5-6 Weeks 4059-214917 mU/mL 7-8 Weeks 73201-104002 mU/mL 9-10 Weeks 93199-51347 mU/mL 12-14 Weeks 82049-80004 mU/mL 15-16 Weeks 8240-07658 mU/mL 17-18 Weeks Type Rh: (JAYMIE: 10/16/2020 00:43) ( MsgRcvd 10/16/2020 01:17) Final results Test Result Flag Units (Reference) ABO GROUP B RH TYPE POSITIVE { ABO/RH REENTER B POSITIVE US OB 1ST TRI W TV IF NEEDED: (JAYMIE: 10/16/2020 00:27) ( MsgRcvd 10/16/2020 01:19) In Progress US OB 1ST TRI W TV IF NEEDED Reason(s): vaginal bleeding TRANSPORTATION: S IV? IV?(No) O2? Oxygen?(No) Anat.PROGRESS AND PROCEDURESCourse of Care: 01:53 10/16/20. Patient apparently had confirmation of 10 on ultrasound.However with the bleeding today and ultrasound findings, patient most likely has demise. 4 Clinical Report - Physicians/Mid Levels [facility] Emergency Department [address] [place] [address] Phone #: ext- [phone] 10/15/2020 23:14 Patient: JOZEF ALONZO Sex: F : 2000 Age: 20y Patient/family counseled. Disposition: Discharged. Condition: stable.CLINICAL IM PRESSION Incomplete spontaneous .No complications. demise, less than 20 weeks gestation.INSTRUCTIONS Warnings: Further evaluation is necessary. GENERAL WARNINGS: Return or contact your physician immediately if your condition worsens or changes unexpectedly, if not improving as expected, or if other problems arise. Understanding of the discharge instructions verbalized by patient and parent. Follow-up with: [facility], , , [address] [place], [address] Follow up in two if not well. Call for an appointment.(Electronically signed by Dimas Escobar 10/16/2020 04:36) Name Value Range Interpretation Code Description Data Yen rce(s) Supporting Document(s) ID Date Data Source [id number] 10/16/2020 01:25:00 AM EDT [facility] Name Value Range Interpretation Code Description Data Yen rce(s) Supporting Document(s) COMPREHENSIVE METABOLIC PANEL [facility] COMPREHENSIVE METABOLIC PANEL Sodium [Moles/volume] in Serum or Plasma 135 mEq/L 134 - 153 [facility] Potassium [Moles/volume] in Serum or Plasma 3.5 mEq/L 3.6 - 5.0 L [facility] Chloride [Moles/volume] in Serum or Plasma 100 mEq/L 98 - 107 [facility] Carbon dioxide, total [Moles/volume] in Serum or Plasma 23 MEQ/L 22 - 30 [facility] Glucose [Mass/volume] in Serum or Plasma 180 MG/DL 70 - 99 H [facility] BUN 4 MG/DL 7 - 21 L [facility] Creatinine [Mass/volume] in Serum or Plasma <0.4 MG/DL 0.7 - 1.5 L [facility] BUN/CREAT 13 8 - 27 [facility] Protein [Mass/volume] in Serum or Plasma 6.2 G/DL 6.3 - 8.2 L [facility] Albumin [Mass/volume] in Serum or Plasma 3.7 G/DL 3.9 - 5.0 L [facility] Globulin [Mass/volume] in Serum by calculation 2.5 GM/DL 2.4 - 3.2 [facility] A/G RATIO 1.5 0.8 - 2.0 [facility] Calcium [Mass/volume] in Serum or Plasma 9.3 MG/DL 8.4 - 10.2 [facility] Bilirubin.total [Mass/volume] in Serum or Plasma <0.7 MG/DL 0.2 - 1.3 [facility] Alkaline phosphatase [Enzymatic activity/volume] in Serum or Plasma 92 U/L 38 - 126 [facility] Aspartate aminotransferase [Enzymatic activity/volume] in Serum or Plasma 11 U/L 5 - 40 [facility] Alanine aminotransferase [Enzymatic activity/volume] in Seru m or Plasma 12 U/L 7 - 56 [facility] Anion gap 3 in Serum or Plasma 12.0 mmol/L 8.0 - 16.0 [facility] AGE 20 yrs [facility] NON-AA GFR >60 mL/min [facility] AFR AMER GFR >60 mL/min [facility] Male GFR In terprentation 20-49 yrs >60 mL/min Normal 50-59 yrs >56 mL/min Normal 60-69 yrs >49 mL/min Normal 70-79yrs >42 mL/min Normal 80 and above >35 mL/min Normal Female GFR Interpretation 20-39 yrs >60 mL/min Normal 40-49 yrs >58 mL/min Normal 50-59 yrs >51 mL/min Normal 60-69 yrs >45 mL/min Normal 70-79 yrs >39 mL/min Normal 80 and above >32 mL/min Normal ID Date Data Source [id number] 10/16/2020 01:23:00 AM EDT [facility] Name Value Range Interpretation Code Description Data Yen rce(s) Supporting Document(s) Choriogonadotropin.intact [Units/volume] in Serum or Plasma 54046.0 mIU/mL [facility] Interpr etation: Less than 5 mU/mL: Negative 6-10 mU/mL: Borderline (suggest repeat in 48 hours) >10: Positive Approx HCG range (mU/mL) Weeks post LMP 5.4-708 mU/mL 3-4 Weeks 217-75431 mU/mL 5-6 Weeks 4059-344802 mU/mL 7-8 Weeks 12194-547614 mU/mL 9-10 Weeks 92906-31738 mU/mL 12-14 Weeks 31495-77859 mU/mL 15-16 Weeks 8240- 47047 mU/mL 17-18 Weeks ID Date Data Source [id number] 10/16/2020 01:17:00 AM EDT [facility] Name Value Range Interpretation Code Description Data Yen rce(s) Supporting Document(s) ABO group [Type] in Blood B [facility] Rh [Type] in Blood POSITIVE [facility] { ABO/RH REENTER B POSITIVE ID Date Data Source [id number] 10/16/2020 12:53:00 AM EDT [facility] Name Value Range Interpretation Code Description Data Yen rce(s) Supporting Document(s) CBC W/AUTOMATED DIFF [facility] COMPLETE BLOOD COUNT Leukocytes [#/volume] in Blood by Automated count 10.4 10^3/uL 4.2 - 11.0 [facility] Erythrocytes [#/volume] in Blood by Automated count 4.39 10^6/uL 4. 20 - 5.40 [facility] Hemoglobin [Mass/volume] in Blood 12.1 g/dL 12.0 - 16.0 [facility] Hematocrit [Volume Fraction] of Blood by Automated count 35.0 % 3 7.0 - 47.0 L [facility] Erythrocyte mean corpuscular volume [Entitic volume] by Auto mated count 79.7 fL 81.0 - 101 L [facility] Erythrocyte mean corpuscular hemoglobin [Entitic mass] by Automated count 27.6 pg 27.0 - 34.0 [facility] Erythrocyte mean corpuscular hemoglobin concentration [Mass/volume] by Automated count 34.6 g/dL 31.0 - 36.0 [facility] Erythrocyte distribution width [Ratio] by Automated count 14.4 % 11.5 - 14.5 [facility] Platelets [#/volume] in Blood by Automated count 375 10^3/uL 150 - 45 0 [facility] Platelet mean volume [Entitic volume] in Blood by Automated count 8.2 fL 7.4 - 10.4 [facility] Neutrophils/100 leukocytes in Blood by Automated count 71.0 % 37. 0 - 80.0 [facility] Lymphocytes/100 leukocytes in Blood by Manual count 18.4 % 25.0 - 40.0 L [facility] Monocytes/100 leukocytes in Blood by Automated count 9.4 % 3.0 - 8.0 H [facility] Eosinophils/100 leukocytes in Blood by Automated count 0.7 % 0.0 - 7.0 [facility] Basophils/100 leukocytes in Blood by Automated count 0.2 % 0.0 - 2.5 [facility] %IG 0.3 % 0.0 - [facility] % 0.0 - 0.0 [facility] al Neutrophils [#/volume] in Blood by Automated count 7.39 10^3/uL 2.00 - 6.90 H [facility] Lymphocytes [#/volume] in Blood by Automated count 1.91 10^3/uL 0.60 - 3.40 [facility] Monocytes [#/volume] in Blood by Automated count 0.98 10^3/uL 0.00 - 0.90 H [facility] Eosinophils [#/volume] in Blood by Automated count 0.07 10^3/uL 0.00 - 0.70 [facility] Basophils [#/volume] in Blood by Automated count 0.02 10^3/uL 0.00 - 0.20 [facility] #IG 0.03 10^3/uL 0.00 - 0.10 [facility] ospital #NRBC 0.00 10^3/uL 0.00 - 0.00 [facility] ospital MANUAL DIFF NOT INDICATED [facility] RBC MORPH NOT INDICATED [facility] spital ID Date Data Source [id number] 07/09/2020 09:08:00 AM EDT [facility] Name Value Range Interpretation Code Description Data Yen rce(s) Supporting Document(s) SARS coronavirus 2 RNA [Presence] in Res piratory specimen by DMITRY with probe detection NEGATIVE [facility] This lab was ordered by [facility] a nd reported by [employer]. ID Date Data Source [id number] 02/14/2020 11:19:00 PM EST [facility] Name Value Range Interpretation Code Description Data Yen rce(s) Supporting Document(s) SARS coronavirus 2 RNA [Presence] in Res piratory specimen by DMITRY with probe detection [facility] This lab was ordered by [facility] a nd reported by [employer]. ID Date Data Source [id number] 11/12/2019 02:20:[address] [facility] [place] Name Value Range Interpretation Code Description Data Yen rce(s) Supporting Document(s) Progress Note [facility] [id number] [facility] [file] [id number] Procedure Social History No Information Vital Signs ID Date Data Source [id number] 11/12/2019 02:20:[address] [facility] [place] Name Value Range Interpretation Code Description Data Source(s) WEIGHT RECORDED 110 lb 110 lb [facility] Body height [facility] Patient Treatment Plan of Care Planned Activity Planned Date Details Description Data Source (s) OneTouch Ceciliokunal In Vitro Strip 11/12/2019 12:00:00 AM [facility] Cholecalciferol 2000 UNT Oral Capsule 11/10/2019 12:00:00 AM [facility] Cholecalciferol 2000 UNT Oral Capsule 07/13/2019 12:00:00 AM [facility] atorvastatin 10 MG Oral Tablet 05/07/2019 12:00:00 AM [facility] Glucagon 1 MG Injection 04/22/2019 12:00:00 AM [facility]
[2021-01-11 14:00] VITALS: BP 111/70
[2021-01-11 14:00] LABS: BASO % 0.9 % (0.0-1.0); EOS # 0.1 10^3/uL (0.0-0.5); EOS % 1.3 % (0.0-3.0); HEMATOCRIT 41.7 % (36.0-47.0); LYMPH # 1.3 10^3/uL (1.5-5.0); LYMPH % 28.1 % (24.0-44.0); MEAN CORPUSCULAR HEMOGLOBIN 27.4 pg (27.0-33.0); MEAN CORPUSCULAR HGB CONC 31.2 g/dl (32.0-36.5); MONO # 0.3 10^3/uL (0.0-0.8); MONO % 7.2 % (2.0-8.0); NEUTROPHILS # 2.9 10^3/uL (1.5-8.5); NEUTROPHILS % 62.3 % (36.0-66.0); PLATELET COUNT, AUTOMATED 357 10^3/uL (150-450); RED BLOOD COUNT 4.74 10^6/uL (4.00-5.40); WHITE BLOOD COUNT 4.7 10^3/uL (4.0-10.0)
[2021-01-11 14:21] LABS: OSMOLALITY SERUM 317 MOSM/KG (275-295)
[2021-01-11 14:30] LABS: ACETONE/KETONE 22.31 MG/DL (<2.81); ALT/SGPT 20 U/L (12-78); BILIRUBIN,DIRECT < 0.1 MG/DL (0.0-0.2); BILIRUBIN,TOTAL 0.4 MG/DL (0.2-1.0); BLOOD UREA NITROGEN 14 MG/DL (7-18); CALCIUM LEVEL 9.1 MG/DL (8.5-10.1); CARBON DIOXIDE LEVEL 24 MEQ/L (21-32); CHLORIDE LEVEL 90 MEQ/L (98-107); GLOMERULAR FILTRATION RATE > 60.0 (>60); GLUCOSE, FASTING 924 MG/DL (70-100); LIPASE 75 U/L (73-393); POTASSIUM SERUM 5.8 MEQ/L (3.5-5.1); SODIUM LEVEL 124 MEQ/L (136-145); TOTAL PROTEIN 6.3 GM/DL (6.4-8.2)
[2021-01-11 14:40] LABS: HEMOGLOBIN A1c 11.7 %
--- NOTE | 2021-01-12 20:41 | ECGEPIP ---
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
== END 2021-01-11 14:21 | disposition left against medical advice (07) ==
LOC: EDBD 13:12 → M ED 13:12
DX: R55 Syncope and collapse (principal); E10.65 Type 1 diabetes mellitus with hyperglycemia; R94.31 Abnormal electrocardiogram [ECG] [EKG]; F17.200 Nicotine dependence, unspecified, uncomplicated; Z79.899 Other long term (current) drug therapy; Z79.4 Long term (current) use of insulin; Z90.49 Acquired absence of other specified parts of digestive tract; Z91.018 Allergy to other foods